=== PATIENT | male | born 1950 | race Caucasian/White ===

== ENCOUNTER 2018-09-30 17:47 | Inpatient (IN) ==
[2018-09-30 19:16] LABS: Basophils % 0.1 % (0.1-2.0); Hematocrit 37.5 % (42.0-52.0); Hemoglobin 12.1 g/dL (14.1-18.0); Lymphocytes # 1.3 K/mm3 (0.7-4.5); Mean Corpuscular HGB Conc 32.2 g/dL (31.8-35.4); Mean Corpuscular Hemoglobin 29.5 pg (27.0-31.2); Mean Corpuscular Volume 91.7 fl (80-94); Mean Platelet Volume 7.5 fl (7.4-10.4); Monocytes # 0.6 K/mm3 (0.1-1.0); Neutrophils # 14.2 K/mm3 (1.8-7.8); Neutrophils % 87.9 % (37.0-80.0); Platelet Count 221 K/mm3 (142-424); Red Blood Count 4.09 M/mm3 (4.60-6.20); Red Cell Distribution Width 15.3 % (11.5-17.5); White Blood Count 16.1 K/mm3 (4.8-10.8)
[2018-09-30 19:21] LABS: INR 1.11 (0.9-1.1); Prothrombin Time 11.4 seconds (9.4-11.8)
[2018-09-30 19:29] LABS: Anion Gap 12.4 mEq/L (5-15); Calcium 8.9 mg/dL (8.5-10.1); Chol/HDL Ratio 3.7 (1-3.5); Potassium 5.4 mmoL/L (3.5-5.1)
[2018-09-30 19:42] LABS: Lymphocytes % 10 % (10-50); Neutrophils % 81 % (42-76); Total Cells Counted 100
[2018-09-30 19:44] LABS: Polychromasia 1+
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
[2018-10-01 02:17] LABS: Basophils % 0.1 % (0.1-2.0); Eosinophils % 0.2 % (0.1-12.0); Hematocrit 34.4 % (42.0-52.0); Hemoglobin 11.4 g/dL (14.1-18.0); Lymphocytes # 1.9 K/mm3 (0.7-4.5); Lymphocytes % 12.3 % (10-50); Mean Corpuscular HGB Conc 33.3 g/dL (31.8-35.4); Mean Corpuscular Hemoglobin 29.9 pg (27.0-31.2); Mean Platelet Volume 8.1 fl (7.4-10.4); Monocytes # 0.8 K/mm3 (0.1-1.0); Neutrophils # 12.7 K/mm3 (1.8-7.8); Neutrophils % 82.5 % (37.0-80.0); Platelet Count 197 K/mm3 (142-424); Red Blood Count 3.82 M/mm3 (4.60-6.20); Red Cell Distribution Width 15.4 % (11.5-17.5); White Blood Count 15.4 K/mm3 (4.8-10.8)
[2018-10-01 02:28] LABS: Anion Gap 11.3 mEq/L (5-15); Calcium 8.5 mg/dL (8.5-10.1); Potassium 4.3 mmoL/L (3.5-5.1)
--- NOTE | 2018-10-01 08:13 | Pharmacy Consult Notes ---
[facility] Pharmacy VTE Monitoring - Patient Demographics Admission date: 09/30/18 Report Date: 10/01/18 Time: 08:13 Allergies/Adverse Reactions: Patient Allergies Iodinated Contrast Media - Oral and Allergy (Mild, Verified 08/17/18 13:27) iodine Allergy (Mild, Verified 08/17/18 13:27) Height: 1.7 m Weight: 95.963 kg Patient Problems: Current Active Problems Cardiomyopathy (Acute) Allergy to imaging contrast media (Acute) - VTE Risk Labs: VTE Related Lab Results Hgb 11.4 g/dL (14.1-18.0) L 10/01/18 02:10 Hct 34.4 % (42.0-52.0) L 10/01/18 02:10 Plt Count 197 K/mm3 (142-424) 10/01/18 02:10 PT 11.4 seconds (9.4-11.8) 09/30/18 19:01 INR 1.11 (0.9-1.1) H 09/30/18 19:01 APTT 52.9 seconds (23.6-34.0) H* D 10/01/18 02:10 BUN 26 mg/dL (7-18) H 10/01/18 02:10 Creatinine 0.94 mg/dL (0.70-1.30) 10/01/18 02:10 Estimated Creat Clear 95 mL/min (50-200) 10/01/18 02:10 VTE Score: 3 VTE Risk Level: Low Risk - Prophylaxis VTE Prophylaxis Ordered?: Yes Types of VTE Prophylaxis: TEDS Knee High, Pharmacological Location of Applied Device: Bilateral Lower Extremeties Pharmacologic Type: Heparin (HEPARIN DRIP) - VTE Diagnosis Confirmed Treatment or plan recommended: Continue Current Treatment
--- NOTE | 2018-10-01 08:20 | Pharmacy Consult Notes ---
[facility] Pharmacy Heparin Dosing - Demographic Data Admission date:: 09/30/18 Date: 10/01/18 Time: 08:17 Allergies/Adverse Reactions: Allergies Allergy/AdvReac Type Severity Reaction Status Date / Time Iodinated Contrast Media - Allergy Mild Verified 08/17/18 13:27 Oral and iodine Allergy Mild Verified 08/17/18 13:27 Height: 1.7 m Weight: 95.6 kg - Indication Medication therapy:: Heparin Current Indications:: NSTEMI Patient Problems: Current Active Problems Cardiomyopathy (Acute) Allergy to imaging contrast media (Acute) NSTEMI (non-ST elevated myocardial infarction) (Acute) CVA?: No Bleeding problem?: No Kidney disease?: No HI?: No Desired PTT range:: 60-80 seconds - Labs Anticoagulation Lab Results:: 09/30/18 10/01/18 19:01 02:10 Hgb 12.1 L 11.4 L Hct 37.5 L 34.4 L Plt Count 221 197 - Monitoring Dose Monitor 1 Date: 09/30/18 Time: 19:00 PTT Result:: 74.1 Infusion Rate:: 1000 UNITS/HR Comment:: NO BOLUS OF HEPARIN GIVEN Dose Monitor 2 Date: 10/01/18 Time: 02:10 PTT Result:: 52.9 Infusion Rate:: INCREASE TO 1250 UNITS/HR Dose Monitor 3 Date: 10/01/18 Time: 08:30 PTT Result:: 45.5 Infusion Rate:: INCREASE TO 1350 UNITS/HR Dose Monitor 4 Date: 10/01/18 Time: 14:30 PTT Result:: 46.7 Infusion Rate:: INCREASE TO 1450 UNITS/HR Dose Monitor 5 Date: 10/01/18 Time: 20:30 PTT Result:: 49.5 Infusion Rate:: CONTINUE 1450 UNITS/HR Dose Monitor 6 Date: 10/02/18 Time: 04:10 PTT Result:: 66.7 Infusion Rate:: CONTINUE 1,450 UNITS/HR Dose Monitor 7 Date: 10/02/18 Time: 10:30 - Core Measures Is INR > or = 2 at discharge?: No Most Recent Labs:: Laboratory Results - last 24 hr 09/30/18 19:01: WBC 16.1 H, RBC 4.09 L, Hgb 12.1 L, Hct 37.5 L, MCV 91.7, MCH 29.5, MCHC 32.2, RDW 15.3, Plt Count 221, MPV 7.5, Neut % (Auto) 87.9 H, Lymph % (Auto) 8.0 L, [place] % (Auto) 4.0, Eos % (Auto) 0.0 L, Baso % (Auto) 0.1, Neut # (Auto) 14.2 H, Lymph # (Auto) 1.3, [place] # (Auto) 0.6, Eos # (Auto) 0.0, Baso # (Auto) 0.0, Total Counted 100, Neutrophils % (Manual) 81 H, Band Neutrophils % 9.0 H, Lymphocytes % (Manual) 10, Platelet Estimate Normal, Polychromasia 1+, Ovalocytes 09/30/18 19:01: Sodium 139, Potassium 5.4 H, Chloride 100, Carbon Dioxide 32, Anion Gap 12.4, BUN 28 H, Creatinine 1.12, Estimated Creat Clear 85, Estimated GFR 65, Est GFR ( Amer) 79, Glucose 238 H, Calcium 8.9, Magnesium 2.1, Troponin I 0.06, Triglycerides 70, Cholesterol 176, LDL Cholesterol 114, VLDL Cholesterol 14, HDL Cholesterol 48, Cholesterol/HDL Ratio 3.7 H 09/30/18 19:01: B-Natriuretic Peptide 46 09/30/18 19:01: PT 11.4, INR 1.11 H 09/30/18 19:01: APTT 74.1 H* 10/01/18 02:10: WBC 15.4 H, RBC 3.82 L, Hgb 11.4 L, Hct 34.4 L, MCV 90.0, MCH 29.9, MCHC 33.3, RDW 15.4, Plt Count 197, MPV 8.1, Neut % (Auto) 82.5 H, Lymph % (Auto) 12.3, [place] % (Auto) 5.0, Eos % (Auto) 0.2, Baso % (Auto) 0.1, Neut # (Auto) 12.7 H, Lymph # (Auto) 1.9, [place] # (Auto) 0.8, Eos # (Auto) 0.0, Baso # (Auto) 0.0 10/01/18 02:10: Sodium 138, Potassium 4.3 D, Chloride 101, Carbon Dioxide 30, Anion Gap 11.3, BUN 26 H, Creatinine 0.94, Estimated Creat Clear 95, Estimated GFR 80, Est GFR ( Amer) 96 D, Glucose 186 H D, Calcium 8.5 10/01/18 02:10: APTT 52.9 H* D Were Heparin and Warfarin started on the same day?: No If not, why?: HEPARIN DRIP STOPPED PER DR. GRIFFIN. PATIENT IS ON XARELTO AT HOME
--- NOTE | 2018-10-01 11:16 | Progress Note ---
Internal Medicine - PN: Subj *Date: 10/01/18 *Time: 10:40 Interval history: Patient is doing slightly better compared to yesterday. He still complains of central chest pain radiating to the lower side of his left jaw and mild pain also radiating to his left arm. Exam Vital signs and Labs for Last 24 Hours: Temp Pulse Resp BP Pulse Ox 97.6 F 70 15 144/82 H 92 L 10/01/18 08:00 10/01/18 08:00 10/01/18 08:00 10/01/18 08:00 10/01/18 08:00 Laboratory Results - last 24 hr 09/30/18 19:01: WBC 16.1 H, RBC 4.09 L, Hgb 12.1 L, Hct 37.5 L, MCV 91.7, MCH 29.5, MCHC 32.2, RDW 15.3, Plt Count 221, MPV 7.5, Neut % (Auto) 87.9 H, Lymph % (Auto) 8.0 L, [place] % (Auto) 4.0, Eos % (Auto) 0.0 L, Baso % (Auto) 0.1, Neut # (Auto) 14.2 H, Lymph # (Auto) 1.3, [place] # (Auto) 0.6, Eos # (Auto) 0.0, Baso # (Auto) 0.0, Total Counted 100, Neutrophils % (Manual) 81 H, Band Neutrophils % 9.0 H, Lymphocytes % (Manual) 10, Platelet Estimate Normal, Polychromasia 1+, Ovalocytes 09/30/18 19:01: Sodium 139, Potassium 5.4 H, Chloride 100, Carbon Dioxide 32, Anion Gap 12.4, BUN 28 H, Creatinine 1.12, Estimated Creat Clear 85, Estimated GFR 65, Est GFR ( Amer) 79, Glucose 238 H, Calcium 8.9, Magnesium 2.1, Troponin I 0.06, Triglycerides 70, Cholesterol 176, LDL Cholesterol 114, VLDL Cholesterol 14, HDL Cholesterol 48, Cholesterol/HDL Ratio 3.7 H 09/30/18 19:01: B-Natriuretic Peptide 46 09/30/18 19:01: PT 11.4, INR 1.11 H 09/30/18 19:01: APTT 74.1 H* 10/01/18 02:10: WBC 15.4 H, RBC 3.82 L, Hgb 11.4 L, Hct 34.4 L, MCV 90.0, MCH 29.9, MCHC 33.3, RDW 15.4, Plt Count 197, MPV 8.1, Neut % (Auto) 82.5 H, Lymph % (Auto) 12.3, [place] % (Auto) 5.0, Eos % (Auto) 0.2, Baso % (Auto) 0.1, Neut # (Auto) 12.7 H, Lymph # (Auto) 1.9, [place] # (Auto) 0.8, Eos # (Auto) 0.0, Baso # (Auto) 0.0 10/01/18 02:10: Sodium 138, Potassium 4.3 D, Chloride 101, Carbon Dioxide 30, Anion Gap 11.3, BUN 26 H, Creatinine 0.94, Estimated Creat Clear 95, Estimated GFR 80, Est GFR ( Amer) 96 D, Glucose 186 H D, Calcium 8.5 10/01/18 02:10: APTT 52.9 H* D 10/01/18 08:25: APTT 45.5 H D I & O for Last 24 hours: Intake & Output 09/28/18 09/29/18 09/30/18 10/01/18 11:59 11:59 11:59 11:59 Intake Total 1369 / 1369 Output Total 1900 / 1900 Balance -531 / -531 Weight 210 lb 12.191 oz - *Routine HEENT Exam Head: Present: normocephalic Eye: Present: EOMI ENT: Present: mucous membranes moist - *Routine Neck Exam Present: supple - *Routine Respiratory Exam Present: CTA bilaterally. Absent: accessory muscle use - *Routine Cardiovascular Exam Present: RRR - *Routine Abdominal Exam Present: soft, normoactive bowel sounds - *Routine Extremities Exam Absent: edema - *Routine Skin Exam Present: intact - *Routine Neurological Exam Present: alert, oriented X3 - Routine Psychiatric Exam Present: normal affect Assessment and Plan (1) NSTEMI (non-ST elevated myocardial infarction) Current visit: Yes Status: Acute Category: Medical Code(s): I21.4 - Non-ST elevation (NSTEMI) myocardial infarction (2) Unstable angina Current visit: No Status: Acute Category: Medical Code(s): I20.0 - Unstable angina (3) Allergy to imaging contrast media Current visit: Yes Status: Acute Category: Medical Code(s): Z91.041 - Radiographic dye allergy status (4) Angina pectoris Current visit: No Status: Chronic Category: Medical Code(s): I20.9 - Angina pectoris, unspecified (5) Cardiomyopathy Current visit: Yes Status: Acute Category: Medical Code(s): I42.9 - Cardiomyopathy, unspecified (6) Anaphylaxis Current visit: No Status: Acute Category: Medical Code(s): T78.2XXA - Anaphylactic shock, unspecified, initial encounter (7) Benign essential hypertension Current visit: No Status: Chronic Category: Medical Code(s): I10 - Ess ential (primary) hypertension (8) Cardiac pacemaker in situ Current visit: No Status: Chronic Category: Medical Code(s): Z95.0 - Presence of cardiac pacemaker (9) Chest pain Current visit: No Status: Chronic Category: Medical Code(s): R07.9 - Chest pain, unspecified (10) Coronary arteriosclerosis Current visit: No Status: Chronic Category: Medical Code(s): I25.10 - Atherosclerotic heart disease of [place] coronary artery without angina pectoris (11) History of coronary artery bypass graft Current visit: No Status: Chronic Category: Surgical Code(s): Z95.1 - Presence of aortocoronary bypass graft (12) Hyperlipemia Current visit: No Status: Chronic Qualifiers: Hyperlipidemia type: other hyperlipidemia Category: Medical Code(s): E78.5 - Hyperlipidemia, unspecified - Assessment and plan all Dx Assessment and Plan for all problems:: We will continue IV heparin drip per pharmacy protocol. Optimize his medical management for NYHA class III HFrEF. Spoke to Dr. Dale, he needs to be pretreated for his allergy contrast prior to possible cath. Dr. Dale to initiate the pretreatment with steroids, as the treatment is time-sensitive. Will follow cardiology recommendation.
[2018-10-02 04:26] LABS: Basophils % 0.2 % (0.1-2.0); Eosinophils # 0.1 K/mm3 (0.0-0.4); Eosinophils % 1.3 % (0.1-12.0); Hematocrit 38.9 % (42.0-52.0); Hemoglobin 12.1 g/dL (14.1-18.0); Lymphocytes # 2.5 K/mm3 (0.7-4.5); Lymphocytes % 22.9 % (10-50); Mean Corpuscular Hemoglobin 28.3 pg (27.0-31.2); Mean Corpuscular Volume 91.3 fl (80-94); Mean Platelet Volume 7.5 fl (7.4-10.4); Monocytes # 0.8 K/mm3 (0.1-1.0); Monocytes % 7.1 % (1.7-9.3); Neutrophils # 7.4 K/mm3 (1.8-7.8); Neutrophils % 68.6 % (37.0-80.0); Platelet Count 192 K/mm3 (142-424); Red Blood Count 4.26 M/mm3 (4.60-6.20); Red Cell Distribution Width 15.4 % (11.5-17.5); White Blood Count 10.8 K/mm3 (4.8-10.8)
[2018-10-02 04:38] LABS: Anion Gap 7.8 mEq/L (5-15); Calcium 8.5 mg/dL (8.5-10.1); Potassium 3.8 mmoL/L (3.5-5.1)
--- NOTE | 2018-10-02 09:39 | Progress Note ---
<Annabel Cartwright - Last Filed: 10/02/18 09:35> Internal Medicine - PN: Subj *Date: 10/02/18 *Time: 09:36 Interval history: Patient states he continues to feel horrible. He continues to have chest discomfort. He states the nitroglycerin works very briefly. Morphine helps for a while. He denies shortness of breath. He has been n.p.o. after midnight for possible cath today. He ate satisfactory yesterday. Bowels are moving. He remains on bedrest. Dr. Dale is to speak with patient. Exam Vital signs and Labs for Last 24 Hours: Temp Pulse Resp BP Pulse Ox 98.1 F 70 20 146/98 H 96 10/02/18 07:57 10/02/18 07:57 10/02/18 07:57 10/02/18 07:57 10/02/18 07:57 Laboratory Results - last 24 hr 10/01/18 14:30: APTT 46.7 H 10/01/18 20:35: APTT 49.5 H 10/02/18 01:15: Total Creatine Kinase 33 L, CK-MB (CK-2) 2.3, CK-MB (CK-2) Rel Index 7.0 H, Troponin I 0.06 10/02/18 04:10: WBC 10.8 D, RBC 4.26 L, Hgb 12.1 L, Hct 38.9 L, MCV 91.3, MCH 28.3, MCHC 31.0 L, RDW 15.4, Plt Count 192, MPV 7.5, Neut % (Auto) 68.6, Lymph % (Auto) 22.9, [place] % (Auto) 7.1, Eos % (Auto) 1.3, Baso % (Auto) 0.2, Neut # (Auto) 7.4, Lymph # (Auto) 2.5, [place] # (Auto) 0.8, Eos # (Auto) 0.1, Baso # (Auto) 0.0 10/02/18 04:10: Sodium 143, Potassium 3.8, Chloride 106, Carbon Dioxide 33 H, Anion Gap 7.8, BUN 19 H D, Creatinine 0.93, Estimated Creat Clear 94, Estimated GFR 81, Est GFR ( Amer) 97, Glucose 131 H, Calcium 8.5 10/02/18 04:10: APTT 66.7 H* D I & O for Last 24 hours: Intake & Output 09/29/18 09/30/18 10/01/18 10/02/18 11:59 11:59 11:59 11:59 Intake Total 1369 / 1369 1200 / 1200 Output Total 1900 / 1900 1850 / 1850 Balance -531 / -531 -650 / -650 Weight 211 lb 9 oz 210 lb 12.191 oz Radiology Reports for the Last 24 Hours: 10/02/2018 chest x-ray IMPRESSION: Prior CABG with pacemaker and mild cardiomegaly - Constitutional no acute distress Comments: Family is at bedside - *Routine Respiratory Exam Present: CTA bilaterally (Anteriorly and posteriorly) - *Routine Cardiovascular Exam Present: RRR - *Routine Abdominal Exam Present: soft, normoactive bowel sounds. Absent: tenderness - *Routine Extremities Exam Present: pulses intact, calf tenderness. Absent: edema - *Routine Neurological Exam Present: alert, oriented X3 Assessment and Plan (1) NSTEMI (non-ST elevated myocardial infarction) Current visit: Yes Status: Acute Category: Medical Code(s): I21.4 - Non-ST elevation (NSTEMI) myocardial infarction (2) Unstable angina Current visit: No Status: Acute Category: Medical Code(s): I20.0 - Unstable angina (3) Allergy to imaging contrast media Current visit: Yes Status: Acute Category: Medical Code(s): Z91.041 - Radiographic dye allergy status (4) Angina pectoris Current visit: No Status: Chronic Category: Medical Code(s): I20.9 - Angina pectoris, unspecified (5) Cardiomyopathy Current visit: Yes Status: Acute Category: Medical Code(s): I42.9 - Cardiomyopathy, unspecified (6) Anaphylaxis Current visit: No Status: Acute Category: Medical Code(s): T78.2XXA - Anaphylactic shock, unspecified, initial encounter (7) Benign essential hypertension Current visit: No Status: Chronic Category: Medical Code(s): I10 - Essential (primary) hypertension (8) Cardiac pacemaker in situ Current visit: No Status: Chronic Category: Medical Code(s): Z95.0 - Presence of cardiac pacemaker (9) Chest pain Current visit: No Status: Chronic Category: Medical Code(s): R07.9 - Chest pain, unspecified (10) Coronary arteriosclerosis Current visit: No Status: Chronic Category: Medical Code(s): I25.10 - Atherosclerotic heart disease of [place] coronary artery without angina pectoris (11) History of coronary artery bypass graft Current visit: No Status: Chronic Category: Surgical Code(s): Z95.1 - Presence of aortocoronary bypass graft (12) Hyperlipemia Current visit: No Status: Chronic Qualifiers: Hyperlipidemia type: other hyperlipidemia Category: Medical Code(s): E78.5 - Hyperlipidemia, unspecified - Assessment and plan all Dx Assessment and Plan for all problems:: Will follow cardiology direction <Joceline Ruiz - Last Filed: 10/02/18 10:07> Exam Vital signs and Labs for Last 24 Hours: Temp Pulse Resp BP Pulse Ox 98.1 F 70 20 146/98 H 96 10/02/18 07:57 10/02/18 07:57 10/02/18 07:57 10/02/18 07:57 10/02/18 07:57 Laboratory Results - last 24 hr 10/01/18 14:30: APTT 46.7 H 10/01/18 20:35: APTT 49.5 H 10/02/18 01:15: Total Creatine Kinase 33 L, CK-MB (CK-2) 2.3, CK-MB (CK-2) Rel Index 7.0 H, Troponin I 0.06 10/02/18 04:10: WBC 10.8 D, RBC 4.26 L, Hgb 12.1 L, Hct 38.9 L, MCV 91.3, MCH 28.3, MCHC 31.0 L, RDW 15.4, Plt Count 192, MPV 7.5, Neut % (Auto) 68.6, Lymph % (Auto) 22.9, [place] % (Auto) 7.1, Eos % (Auto) 1.3, Baso % (Auto) 0.2, Neut # (Auto) 7.4, Lymph # (Auto) 2.5, [place] # (Auto) 0.8, Eos # (Auto) 0.1, Baso # (Auto) 0.0 10/02/18 04:10: Sodium 143, Potassium 3.8, Chloride 106, Carbon Dioxide 33 H, Anion Gap 7.8, BUN 19 H D, Creatinine 0.93, Estimated Creat Clear 94, Estimated GFR 81, Est GFR ( Amer) 97, Glucose 131 H, Calcium 8.5 10/02/18 04:10: APTT 66.7 H* D I & O for Last 24 hours: Intake & Output 09/29/18 09/30/18 10/01/18 10/02/18 11:59 11:59 11:59 11:59 Intake Total 1369 / 1369 1200 / 1200 Output Total 1900 / 1900 1850 / 1850 Balance -531 / -531 -650 / -650 Weight 211 lb 9 oz 210 lb 12.191 oz Assessment and Plan (1) NSTEMI (non-ST elevated myocardial infarction) Current visit: Yes Status: Acute Category: Medical Code(s): I21.4 - Non-ST elevation (NSTEMI) myocardial infarction (2) Unstable angina Current visit: No Status: Acute Category: Medical Code(s): I20.0 - Unstable angina (3) Allergy to imaging contrast media Current visit: Yes Status: Acute Category: Medical Code(s): Z91.041 - Radiographic dye allergy status (4) Angina pectoris Current visit: No Status: Chronic Category: Medical Code(s): I20.9 - Angina pectoris, unspecified (5) Cardiomyopathy Current visit: Yes Status: Acute Category: Medical Code(s): I42.9 - Cardiomyopathy, unspecified (6) Anaphylaxis Current visit: No Status: Acute Category: Medical Code(s): T78.2XXA - Anaphylactic shock, unspecified, initial encounter (7) Benign essential hypertension Current visit: No Status: Chronic Category: Medical Code(s): I10 - Essential (primary) hypertension (8) Cardiac pacemaker in situ Current visit: No Status: Chronic Category: Medical Code(s): Z95.0 - Presence of cardiac pacemaker (9) Chest pain Current visit: No Status: Chronic Category: Medical Code(s): R07.9 - Chest pain, unspecified (10) Coronary arteriosclerosis Current visit: No Status: Chronic Category: Medical Code(s): I25.10 - Atherosclerotic heart disease of [place] coronary artery without angina pectoris (11) History of coronary artery bypass graft Current visit: No Status: Chronic Category: Surgical Code(s): Z95.1 - Presence of aortocoronary bypass graft (12) Hyperlipemia Current visit: No Status: Chronic Qualifiers: Qualified Code(s): E78.49 - Other hyperlipidemia; E78.4 - Other hyperlipidemia Category: Medical Code(s): E78.5 - Hyperlipidemia, unspecified - Assessment and plan all Dx Assessment and Plan for all problems:: Agree with above and DC home per cardiology recommendation with optimal medical management.
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
--- NOTE | 2018-10-02 19:58 | Cardiology Report ---
PROCEDURE: 2-D M-mode and color Doppler study INDICATIONS FOR THE TEST: Chest pain X COPD Heart Murmur Tobacco Smoking Palpitations Fatigue Syncope Edema HypertensionXDiabetes Mellitus Rheumatic Fever SOB BRAR Obesity HyperlipidemiaX Family History HD Additional History CM,STEMI,PPM,CABG,AF,CHF,EF 40 PATIENT INFORMATION HEIGHT: 66 WEIGHT:210 GENDER: Male B/P:144/82 2-D/M-MODE INTERPRETATION: 2-D MEASUREMENTS OBSERVED VALUES IN CMS Right Ventricular Dimension (RVDd) 3.4 Interventricular Septum (Thickness)(IVsd) 1.2 Left Ventricular Internal Dimensions(LVIDd) 5.8 Left Ventricular Posterior Wall (Thickness)(LVPWd) 1.6 Aortic Root 5.1 Aortic Cusp Separation 1.6 Left Atrial Dimensions (LAD) 3.7 2D 1. Left atrium is mildly enlarged, left ventricle is mildly enlarged, there is mild concentric left ventricular hypertrophy, visually estimated ejection fraction of 45%, there is marked hypokinesis involving the basal septum, inferobasal and inferior wall. 2. The right atrium and right ventricle are mildly enlarged with normal contractility, there is a pacemaker lead seen in the right atrium and right ventricle. 3. The aortic valve is thickened and calcified difficult to display mobility. 4. The mitral and tricuspid valve leaflets are minimally thickened. 5. The pulmonic valve is poorly visualized. 6. No significant pericardial effusion noted. DOPPLER INTERROGATION: Doppler interrogation of the aortic, mitral and tricuspid valvular presence of mild aortic, mild mitral and tricuspid regurgitation, tricuspid regurgitation jet velocity is inadequate for calculation of the right ventricular systolic pressure, grade 1 diastolic dysfunction seen without tissue Doppler evidence of raised left atrial pressure. CONCLUSION: 1. Mildly enlarged left atrium, mildly dilated left ventricle, mild concentric left ventricular hypertrophy, visually estimated ejection fraction of 45% with segmental wall motion abnormality described above, grade 1 diastolic dysfunction seen without tissue Doppler evidence of raised left atrial pressure. 2. Mildly enlarged right ventricle with normal contractility. 3. Mild aortic, mild mitral and tricuspid regurgitation. 4. No significant pericardial effusion noted.
== END 2018-10-02 10:55 | disposition home or self-care (01) | DRG 281 ==
LOC: 2ND 17:47
PROVIDERS: ADMIT Family Medicine; ATTEND Emergency Medicine

== ENCOUNTER → 2019-02-19 12:12 | Outpatient (CLI) | payer MEDICARE, SELFPAY ==
--- NOTE | 2019-02-19 12:30 | XR_ITS ---
XR chest 2V HISTORY: ITS.REASON: dyspnea ORDERING PHYSICIAN: Artie Dale MD PATIENT AGE: 68 years COMPARISON: 10/02/2018 FINDINGS: Prior CABG. There is fracture the superior most median sternotomy wire. Borderline cardiomegaly. No failure. Bipolar pacemaker is present. Lungs are clear. Degenerative change thoracic spine. IMPRESSION: No change prior CABG with chronic changes. , No acute finding
[2019-02-19 15:53] LABS: Anion Gap 15.8 mEq/L (5-15); Blood Urea Nitrogen 23 mg/dL (7-18); Calcium 9.4 mg/dL (8.5-10.1); Carbon Dioxide 26 mmol/L (21.0-32.0); Chloride 106 mmol/L (98-107); Creatinine,Serum 1.28 mg/dL (0.70-1.30); Estimated Glomerular Filt Rate 56 ml/min (>60); GFR (African American) 67 ML/MIN (>60); Glucose 128 mg/dL (74-106); Potassium 3.8 mmoL/L (3.5-5.1); Sodium 144 mmol/L (136-145)
== END ==
PROVIDERS: Visit Provider Internal Medicine
DX: I25.118 Atherosclerotic heart disease of native coronary artery with other forms of angina pectoris (principal); I11.9 Hypertensive heart disease without heart failure; I50.22 Chronic systolic (congestive) heart failure; I50.23 Acute on chronic systolic (congestive) heart failure; I50.30 Unspecified diastolic (congestive) heart failure; Z95.1 Presence of aortocoronary bypass graft; E78.5 Hyperlipidemia, unspecified; I48.91 Unspecified atrial fibrillation
CPT/HCPCS: 36415; 71046; 80048; 83880

== ENCOUNTER → 2019-08-29 12:11 | Outpatient (CLI) | payer MEDICARE, SELFPAY ==
--- NOTE | 2019-08-29 12:13 | US_ITS ---
PROCEDURE: US THYROID CLINICAL INDICATION: mass seen on Thryoid previous Thyroid mass noted on recent CT scan. That exam nor report is available comparison. COMPARISON: Chest from 04/24/2019 FINDINGS: Right lobe: 4.6 x 1.7 x 2.2 cm. There is a well-circumscribed wider than tall solid-appearing hypoechoic nodule in the lower pole which measures 1 x 0.7 cm with no obvious calcifications. In addition, there is an 8 x 4 mm hypoechoic nodule along the lower pole. This nodule is well-circumscribed wider than tall without obvious calcifications. Left lobe: 4.3 x 2.2 x 2.2 cm. There is a 4 mm hypoechoic nodule in the upper pole Isthmus: Unremarkable Additional findings: IMPRESSION: Enlarged thyroid gland with bilateral thyroid nodules. On the right the nodules are TR 4 moderately suspicious. Recommend six-month follow-up to confirm short term stability. The nodule on the left may be a cyst and can be followed as well Dictated by: Mike Mora MD 08/30/2019 09:18 Electronically signed by Mike Mora MD in [place] 08/30/2019 09:18
== END ==
PROVIDERS: PCP Family Medicine; Visit Provider Internal Medicine
DX: E11.9 Type 2 diabetes mellitus without complications (principal); E78.2 Mixed hyperlipidemia; I11.0 Hypertensive heart disease with heart failure; I48.0 Paroxysmal atrial fibrillation; I50.32 Chronic diastolic (congestive) heart failure; R53.83 Other fatigue; R60.0 Localized edema
CPT/HCPCS: 76536

== ENCOUNTER → 2019-10-04 15:43 | Outpatient (CLI) | payer MEDICARE, SELFPAY ==
[2019-10-04 17:14] LABS: Free T4 (Free Thyroxine) 1.07 ng/dl (0.76-1.46); Thyroid Stimulating Hormone 1.06 uIU/ml (0.358-3.740)
[2019-10-06 11:04] LABS: Thyroid Peroxidase Antibodies 11 IU/mL (0-34)
[2019-10-07 10:53] LABS: Calcitonin 2.7 pg/mL (0.0-8.4)
[2019-10-10 17:34] LABS: Thyroid Stimulating Immunoglob <0.10 IU/L (0.00-0.55)
== END ==
PROVIDERS: Visit Provider Otolaryngology
DX: E04.9 Nontoxic goiter, unspecified (principal)
CPT/HCPCS: 36415; 82308; 84439; 84443; 84445; 86376

== ENCOUNTER 2020-03-21 20:48 | Emergency (ER) | payer MEDICARE, SELFPAY ==
[2020-03-21] VITALS (7 sets, daily range): BP systolic 100–136; BP diastolic 52–79; PULSE 70–78; RESP 15–16; TEMP 36.5; O2SAT 91–98; BMI 34.9
--- NOTE | 2020-03-21 20:48 | ECG_ITS ---
APPROVED REPORT Exam: Resting ECG HR:70 bpm ECG Measurements Heart Rate 70 AXES NE 184 P 14 QRSd 92 QRS 12 QT 450 T 260 QTc 486 <Conclusion> Electronic atrial pacemaker ST & T wave abnormality, consider anterior ischemia Prolonged QT Abnormal ECG Electronically signed by : Shay Oro, 03/24/2020 17:13:42
--- NOTE | 2020-03-21 21:02 | XR_ITS ---
PROCEDURE: XR CHEST PORTABLE CLINICAL HISTORY: CHEST PAIN COMPARISON: CXR1VP XR chest portable from 10/02/2018 Chest from 04/24/2019 FINDINGS: There are low lung volumes. There is cardiomegaly. There has been a prior median sternotomy. Bipolar pacer is present. There is fracture of the superior most median sternotomy wire. The lungs are clear without infiltrates, suspicious nodules, or pleural effusions. No acute bony abnormalities. IMPRESSION: Cardiomegaly. No acute finding Dictated by: Mike Mora MD 03/22/2020 06:44 Electronically signed by Mike Mora MD in [place] 03/22/2020 06:44
--- NOTE | 2020-03-21 21:06 | HMH.EDCP ---
ED Disposition Clinical Impression: Angina at rest Disposition: Home, Self-Care Condition on Discharge: Good Instructions: DI for Chest Pain Additional Instructions: see card tuesday Referrals: Chicho Claros [Primary Care Provider] - - Critical Care Critical Care Time: No Attestation: On 03/21/20, the high probability of a clinically significant, sudden or life threatening deterioration of the following system(s) required my full and direct attention, intervention and personal management. The time I documented below is in addition to time spent performing reported procedures but includes the following listed in this critical care notation. Medical Decision Making - Medical Records Medical records reviewed: Yes: I reviewed the patient's medical records. - Gabe Inquiry Pt receiving controlled substance: No Vital Signs: 03/21/20 20:49 03/21/20 21:00 03/21/20 21:30 Temperature 97.7 F Temperature Source Oral Pulse Rate [Right Brachial] 70 70 71 Respiratory Rate 16 15 Blood Pressure [Right Arm] 136/79 116/62 120/77 Blood Pressure Mean [Right Arm] 98 80 91 Blood Pressure Source [Right Arm] Automatic Cuff Automatic Cuff Automatic Cuff Blood Pressure Position [Right Arm] Sitting Supine Supine 02 Sat by Pulse Oximetry 96 95 Oxygen Delivery Method Room Air Room Air Oxygen Flow Rate (LPM) 03/21/20 22:00 03/21/20 22:30 03/21/20 22:58 Temperature Temperature Source Pulse Rate [Right Brachial] 70 78 70 Respiratory Rate Blood Pressure [Right Arm] 116/74 111/52 L 100/65 L Blood Pressure Mean [Right Arm] 88 71 76 Blood Pressure Source [Right Arm] Automatic Cuff Automatic Cuff Automatic Cuff Blood Pressure Position [Right Arm] Supine Supine Supine 02 Sat by Pulse Oximetry 91 L 98 97 Oxygen Delivery Method Nasal Cannula Nasal Cannula Nasal Cannula Oxygen Flow Rate (LPM) 2 2 2 03/21/20 23:30 03/22/20 00:00 03/22/20 00:29 Temperature Temperature Source Pulse Rate [Right Brachial] 70 70 70 Respiratory Rate Blood Pressure [Right Arm] 113/75 128/79 112/70 Blood Pressure Mean [Right Arm] 87 95 84 Blood Pressure Source [Right Arm] Automatic Cuff Automatic Cuff Automatic Cuff Blood Pressure Position [Right Arm] Supine Supine Supine 02 Sat by Pulse Oximetry 95 96 95 Oxygen Delivery Method Nasal Cannula Nasal Cannula Nasal Cannula Oxygen Flow Rate (LPM) 2 2 2 03/22/20 01:16 Temperature Temperature Source Pulse Rate [Right Brachial] 70 Respiratory Rate 16 Blood Pressure [Right Arm] 125/82 Blood Pressure Mean [Right Arm] 96 Blood Pressure Source [Right Arm] Blood Pressure Position [Right Arm] 02 Sat by Pulse Oximetry 92 L Oxygen Delivery Method Room Air Oxygen Flow Rate (LPM) - Lab Data Lab results reviewed: Yes: I reviewed the patient's lab results. Lab Results 03/21/20 20:24: Sodium 138, Potassium 3.0 L, Chloride 97 L, Carbon Dioxide 33 H, Anion Gap 11.0, BUN 13, Creatinine 0.80, Estimated Creat Clear 101, Estimated GFR 96, Est GFR ( Amer) 116, Glucose 174 H, Calcium 9.0, Troponin I 0.02 03/21/20 20:54: NT-Pro-B Natriuret Pep 200 H 03/21/20 21:20: WBC 9.6, RBC 3.99 L, Hgb 11.6 L, Hct 34.0 L, MCV 85.4, MCH 29.2, MCHC 34.2, RDW 14.5, Plt Count 218, MPV 8.3, Neut % (Auto) 74.5, Lymph % (Auto) 16.7, [place] % (Auto) 5.4, Eos % (Auto) 2.8, Baso % (Auto) 0.6, Neut # (Auto) 7.1, Lymph # (Auto) 1.6, [place] # (Auto) 0.5, Eos # (Auto) 0.3, Baso # (Auto) 0.1 03/22/20 00:20: Troponin I 0.02 Result diagrams: 03/21/20 21:20 03/21/20 20:24 Orders (Tests/Meds): ED MEDICATIONS Generic Name Dose Route Start Last Admin Trade Name Freq PRN Reason Stop Dose Admin Nitroglycerin/Dextrose 250 mls @ 1.5 mls/hr 03/21/20 21:45 03/21/20 22:03 Nitroglycerin 50mg/250ml D5w IV 04/20/20 21:44 20 mcg/min .Q24H CARLEEN 6 mls/hr Titration Protocol 5 MCG/MIN Nitroglycerin 0.4 mg 03/21/20 21:01 03/21/20 21:03 Nitrostat 0.4mg Sl Tablet SL 04/20/20 21:00 1 tab Q5
[2020-03-21 21:17] LABS: Chloride 97 mmol/L (98-107); Sodium 138 mmol/L (136-145)
[2020-03-21 21:20] LABS: Blood Urea Nitrogen 13 mg/dl (9-20); Carbon Dioxide 33 mmol/L (22.0-30.0); Creatinine Clearance Estimated 101 mL/min (50-200); Estimated Glomerular Filt Rate 96 ml/min (>60); GFR (African American) 116 ML/MIN (>60); Glucose 174 mg/dl (74-100)
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
[2020-03-21 21:27] LABS: Basophils # 0.1 K/mm3 (0-0.2); Basophils % 0.6 % (0.1-2.0); Eosinophils # 0.3 K/mm3 (0.0-0.4); Eosinophils % 2.8 % (0.1-12.0); Hemoglobin 11.6 g/dL (14.1-18.0); Lymphocytes # 1.6 K/mm3 (0.7-4.5); Lymphocytes % 16.7 % (10-50); Mean Corpuscular HGB Conc 34.2 g/dL (31.8-35.4); Mean Corpuscular Hemoglobin 29.2 pg (27.0-31.2); Mean Corpuscular Volume 85.4 fl (80-94); Mean Platelet Volume 8.3 fl (7.4-10.4); Monocytes # 0.5 K/mm3 (0.1-1.0); Monocytes % 5.4 % (1.7-9.3); Neutrophils # 7.1 K/mm3 (1.8-7.8); Neutrophils % 74.5 % (37.0-80.0); Platelet Count 218 K/mm3 (142-424); Red Blood Count 3.99 M/mm3 (4.60-6.20); Red Cell Distribution Width 14.5 % (11.5-17.5); White Blood Count 9.6 K/mm3 (4.8-10.8)
[2020-03-21 21:28] LABS: NT Pro Brain Natriuretic Pep. 200 pg/mL (0-125)
[2020-03-21 21:31] LABS: Troponin I 0.02 ng/ml (0.00-0.034)
--- NOTE | 2020-03-21 21:35 | PC.NURSE ---
OFFERED ZOFRAN FOR NAUSEA, PATIENT REQUESTS TO HOLD
--- NOTE | 2020-03-21 22:00 | PC.NURSE ---
INCR NITRO TO 6 ML/HR; O2 APPLIED VIA NC FOR PERSISTENT LOW SATURATION DUE TO FALLING ASLEEP
[2020-03-22] VITALS: BP 128/79; PULSE 70; O2SAT 96
[2020-03-22 00:29] VITALS: BP 112/70; PULSE 70; O2SAT 95
[2020-03-22 00:51] LABS: Troponin I 0.02 ng/ml (0.00-0.034)
[2020-03-22 01:16] VITALS: BP 125/82; PULSE 70; RESP 16; O2SAT 92
[2020-03-22 01:27] VITALS: BP 125/82; PULSE 70; RESP 16; TEMP 36.5; O2SAT 95
== END 2020-03-22 01:35 | disposition home or self-care (01) ==
PROVIDERS: Emergency Provider Emergency Medicine; PCP Family Medicine
DX: I20.8 Other forms of angina pectoris (principal); I48.91 Unspecified atrial fibrillation; I50.9 Heart failure, unspecified; I25.10 Atherosclerotic heart disease of native coronary artery without angina pectoris; I10 Essential (primary) hypertension; E78.5 Hyperlipidemia, unspecified; E03.9 Hypothyroidism, unspecified; Z95.0 Presence of cardiac pacemaker; Z90.09 Acquired absence of other part of head and neck; Z87.891 Personal history of nicotine dependence
CPT/HCPCS: 71045; 80048; 83880; 84484; 85025; 93005; 96365; 96375; 96376; 99284

== ENCOUNTER → 2020-03-24 12:01 | Outpatient (CLI) | payer MEDICARE, SELFPAY ==
--- NOTE | 2020-03-24 12:05 | CA_ITS ---
APPROVED REPORT EXAM: Comprehensive 2D, Doppler, and color-flow Echocardiogram Bow Maker Production: Montse Haque RVT Ht: 5 ft 7 in Wt: 228lbs BSA: 2.14 BP: 120/77 mmHg Indications: SOA,CP,A-FIB,CABG,CAD,CM,CHF,PACER,DM,HTN,HLD,FATIGUE,EX SMOKER 2D Dimensions LVOT 2.65 cm (M/F) 1.5-2.5 M-Mode Dimensions RVDd 2.19 cm (0.9-2.6) LVDd 4.60 cm (3.5-5.7) LVDs 3.66 cm (3.5-5.7) IVSd 2.05 cm (0.6-1.1) PWd 2.50 cm (0.6-1.1) EF (Teich) 41.80% FS 20.40% EDV (Teich) 97.30 mL ESV (Teich) 56.60 mL LV Diastology E/A Ratio 0.91 Mitral Valve MV A Velocity 73.00 (40-130 cm/s) Left Ventricle Left atrium is mildly enlarged, left ventricle is normal size, mild concentric left ventricular hypertrophy, visually estimated ejection fraction 55% with no regional wall motion abnormality, grade 1 diastolic dysfunction seen with tissue Doppler evidence of raise left atrial pressure. Right Ventricle Right atrium and right ventricle are normal size and contractility. Aortic Valve Aortic valve is thickened and calcified leaflet continue to display good mobility, there is no aortic stenosis, there is mild aortic insufficiency. Mitral Valve Mitral valve is minimally thickened, there is mild mitral regurgitation. Tricuspid Valve Tricuspid valve is grossly normal, there is mild tricuspid regurgitation, tricuspid regurgitation jet velocity is inadequate for calculation of the right ventricular systolic pressure. Pulmonic Valve Pulmonic valve is poorly visualized. Great Vessels Aortic root is normal size. Pericardium No significant pericardial effusion noted. Conclusion 1. Mildly enlarged left atrium, normal left ventricular size, mild concentric left ventricular hypertrophy visually estimated ejection fraction 55% with no regional wall motion abnormality. Grade 1 diastolic dysfunction seen without tissue Doppler evidence of raise left atrial pressure. 2. Mild aortic, mild mitral and tricuspid regurgitation. 3. No significant pericardial effusion noted. Electronically signed by : Jignesh Ramirez, 03/24/2020:34:03
== END ==
PROVIDERS: PCP Family Medicine; Visit Provider Internal Medicine
DX: R07.9 Chest pain, unspecified (principal)
CPT/HCPCS: 93306

== ENCOUNTER 2020-04-15 10:45 | Emergency (ER) | payer MEDICARE, SELFPAY ==
[2020-04-15] VITALS (10 sets, daily range): BP systolic 68–181; BP diastolic 37–151; PULSE 70–78; RESP 16–17; TEMP 36.6–36.7; O2SAT 91–98; BMI 30.4
--- NOTE | 2020-04-15 10:40 | ECG_ITS ---
APPROVED REPORT Exam: Resting ECG HR:71 bpm ECG Measurements Heart Rate 71 AXES WV 182 P 29 QRSd 96 QRS -23 QT 444 T 118 QTc 482 <Conclusion> AV sequential or dual chamber electronic pacemaker Electronically signed by : Shay Oro, 04/20/2020 21:24:24
--- NOTE | 2020-04-15 10:50 | XR_ITS ---
PROCEDURE: XR CHEST PORTABLE CLINICAL HISTORY: CP, soa Nonsmoker. COMPARISON: CXR1VP XR chest portable from 10/02/2018 Chest from 04/24/2019 XR CHEST PORTABLE from 03/21/2020 FINDINGS: Again noted a left subclavian double lead cardiac pacemaker in position. The lungs are somewhat under expanded. No acute bony abnormalities. There is a stable mild cardiomegaly. Again noted multiple median sternotomy wires, from prior open heart surgery. Mild atherosclerotic tortuosity of the aortic arch. The lungs are unremarkable without infiltrates, suspicious nodules, or pleural effusions. IMPRESSION: 1. Stable mild cardiomegaly. No acute findings. Dictated by: Juan David Traore 04/15/2020 11:16 Electronically signed by Juan David Traore in [place] 04/15/2020 11:16
[2020-04-15 11:01] LABS: Chloride 96 mmol/L (98-107); Potassium 3.3 mmoL/L (3.5-5.1); Sodium 137 mmol/L (136-145)
[2020-04-15 11:04] LABS: Anion Gap 17.3 mEq/L (5-15); Basophils # 0.1 K/mm3 (0-0.2); Basophils % 0.6 % (0.1-2.0); Blood Urea Nitrogen 25 mg/dl (9-20); Carbon Dioxide 27 mmol/L (22.0-30.0); Creatinine Clearance Estimated 31 mL/min (50-200); Eosinophils # 0.3 K/mm3 (0.0-0.4); Eosinophils % 3.1 % (0.1-12.0); Estimated Glomerular Filt Rate 23 ml/min (>60); GFR (African American) 27 ML/MIN (>60); Hemoglobin 12.4 g/dL (14.1-18.0); Lymphocytes # 1.6 K/mm3 (0.7-4.5); Lymphocytes % 15.3 % (10-50); Mean Corpuscular HGB Conc 32.7 g/dL (31.8-35.4); Mean Corpuscular Hemoglobin 28.5 pg (27.0-31.2); Mean Platelet Volume 7.6 fl (7.4-10.4); Monocytes # 0.5 K/mm3 (0.1-1.0); Monocytes % 4.3 % (1.7-9.3); Neutrophils # 8.1 K/mm3 (1.8-7.8); Neutrophils % 76.7 % (37.0-80.0); Platelet Count 198 K/mm3 (142-424); Red Blood Count 4.37 M/mm3 (4.60-6.20); Red Cell Distribution Width 14.5 % (11.5-17.5); White Blood Count 10.5 K/mm3 (4.8-10.8)
--- NOTE | 2020-04-15 11:04 | HMH.EDCP ---
ED Disposition Clinical Impression: Dehydration, Acute kidney injury Hypotension Qualifiers: Hypotension type: unspecified hypotension type Qualified Code(s): I95.9 - Hypotension, unspecified Chest pain Qualifiers: Chest pain type: unspecified Qualified Code(s): R07.9 - Chest pain, unspecified Disposition: Home, Self-Care Condition on Discharge: Good Instructions: DI for Atypical Chest Pain, DI for Dehydration -- Adult, DI for Acute Kidney Injury, DI for Hypotension Additional Instructions: Stop Bumex and spironolactone until you have gained 6 pounds. If blood pressure does not improve throughout the evening, return to the emergency department for admission to the hospital and further monitoring. Referrals: Chicho Claros [Primary Care Provider] - 3 days Artie Dale MD [Staff Physician] - 7-14 days - Critical Care Critical Care Time: No Attestation: On , the high probability of a clinically significant, sudden or life threatening deterioration of the following system(s) required my full and direct attention, intervention and personal management. The time I documented below is in addition to time spent performing reported procedures but includes the following listed in this critical care notation. Total Critical Care Time: 45 Vital system(s) involved:: Circulatory Failure, Metabolic Failure, Respiratory Failure, Renal Failure My critical care processes included: Assessment & monitoring of V/S, Initial and Re-exams, Data Review/Interpretation, Coordinating Care, Medication Orders and management, Documentation Medical Decision Making - Medical Records Medical records reviewed: Yes: I reviewed the patient's medical records. - Gabe Inquiry Pt receiving controlled substance: No Vital Signs: 04/15/20 10:46 04/15/20 11:04 04/15/20 11:45 Temperature 98.1 F Temperature Source Oral Pulse Rate [Right] 70 70 Respiratory Rate 17 Blood Pressure [Right Arm] 181/151 H 150/100 H 68/42 L Blood Pressure Mean [Right Arm] 161 116 50 Blood Pressure Source [Right Arm] Manual Cuff/ Auscultation Blood Pressure Position [Right Arm] Sitting 02 Sat by Pulse Oximetry 91 L Oxygen Delivery Method Room Air 04/15/20 12:06 04/15/20 12:44 04/15/20 13:05 Temperature Temperature Source Pulse Rate [Right] 73 70 72 Respiratory Rate Blood Pressure [Right Arm] 70/37 L 80/43 L 87/64 L Blood Pressure Mean [Right Arm] 48 55 71 Blood Pressure Source [Right Arm] Automatic Cuff Automatic Cuff Automatic Cuff Blood Pressure Position [Right Arm] Sitting Sitting Sitting 02 Sat by Pulse Oximetry 92 L 92 L 95 Oxygen Delivery Method Room Air Room Air Room Air 04/15/20 13:20 04/15/20 14:30 Temperature Temperature Source Pulse Rate [Right] 70 70 Respiratory Rate Blood Pressure [Right Arm] 78/55 L 84/47 L Blood Pressure Mean [Right Arm] 62 59 Blood Pressure Source [Right Arm] Automatic Cuff Automatic Cuff Blood Pressure Position [Right Arm] Sitting Sitting 02 Sat by Pulse Oximetry 95 92 L Oxygen Delivery Method Room Air Room Air - Lab Data Lab Results 04/15/20 10:45: WBC 10.5, RBC 4.37 L, Hgb 12.4 L, Hct 38.0 L, MCV 87.0, MCH 28.5, MCHC 32.7, RDW 14.5, Plt Count 198, MPV 7.6, Neut % (Auto) 76.7, Lymph % (Auto) 15.3, [place] % (Auto) 4.3, Eos % (Auto) 3.1, Baso % (Auto) 0.6, Neut # (Auto) 8.1 H, Lymph # (Auto) 1.6, [place] # (Auto) 0.5, Eos # (Auto) 0.3, Baso # (Auto) 0.1 04/15/20 10:45: Sodium 137, Potassium 3.3 L, Chloride 96 L, Carbon Dioxide 27, Anion Gap 17.3 H, BUN 25 H, Creatinine 2.80 H, Estimated Creat Clear 31, Estimated GFR 23 L, Est GFR ( Amer) 27 L, Glucose 183 H, Calcium 8.9, Troponin I 0.04 H, NT-Pro-B Natriuret Pep 353 H 04/15/20 10:45: Total Bilirubin 0.4, Direct Bilirubin 0.1, Conjugated Bilirubin 0.0, Indirect Bilirubin 0.3, Unconjugated Bilirubin 0.3, AST 41, ALT 26, Alkaline Phosphatase 91, NT-Pro-B Natriuret Pep 338 H, Total Protein 7.3, Albumin 3.8, Lipase 245 04/15/20 12:55: Urine Color
[2020-04-15 11:05] LABS: Calcium 8.9 mg/dl (8.4-10.2); Glucose 183 mg/dl (74-100)
[2020-04-15 11:14] LABS: NT Pro Brain Natriuretic Pep. 353 pg/mL (0-125)
[2020-04-15 11:17] LABS: Troponin I 0.04 ng/ml (0.00-0.034)
[2020-04-15 11:24] LABS: Alanine Aminotransferase 26 U/L (12-78); Alkaline Phosphatase 91 U/L (38-126); Aspartate Amino Transferase 41 U/L (17-59); Bilirubin,Direct 0.1 mg/dl (0.0-0.4); Bilirubin,Indirect 0.3 mg/dL (0.0-0.9); Bilirubin,Total 0.4 mg/dl (0.2-1.3); Bilirubin,Unconjugated 0.3 mg/dL (0.0-1.1); Lipase 245 U/L (23-300)
[2020-04-15 11:25] LABS: Albumin Level 3.8 g/dl (3.5-5.0); Total Protein,Serum 7.3 g/dl (6.3-8.2)
[2020-04-15 11:34] LABS: NT Pro Brain Natriuretic Pep. 338 pg/mL (0-125)
--- NOTE | 2020-04-15 11:35 | PC.NURSE ---
Dr Vaughn speaking with Deepak Evans at this time.
--- NOTE | 2020-04-15 11:53 | HMH.CNCARD ---
History of Present Illness Consult date: 04/15/20 Requesting physician: Kristian Vaughn Consult reason: chest pain Chief complaint: chest pain Additional Medical History:: 1. Coronary artery disease and cardiomyopathy A. History of 5 vessel coronary bypass grafting, 1998 B. History of 20 coronary stents placed C. Cardiomyopathy with ejection fraction reportedly at about 43% per patient. D. Echocardiogram x2, 09/2018 both showing ejection fraction in the 50-60% range. E. R and L heart cath, 12/2016, [facility], Dr. Dale, showing- stenting distal dominant RCA and to the posterior descending artery, Cardiomyopathy with EF 10% ,severely elevated LVEDP and left sided filling pressures, moderate to severe pulmonary HTN 2. History of paroxysmal atrial fibrillation A. On Xarelto anticoagulation B. BRYCE/Cardioversion, , 2016 C. Amiodarone therapy stopped 07/2017 3. Permanent pacemaker placement 4. Hypertension A. Echo, 03/2020, 1. Mildly enlarged left atrium, normal left ventricular size, mild concentric left ventricular hypertrophy visually estimated ejection fraction 55% with no regional wall motion abnormality. Grade 1 diastolic dysfunction seen without tissue Doppler evidence of raise left atrial pressure. 2. Mild aortic, mild mitral and tricuspid regurgitation. 3. No significant pericardial effusion noted 5. Hyperlipidemia 6. Infrarenal Abdominal aortic aneurysm, 3.6 X 3.5 cm, 09/2018 7. Chronic kidney disease, stage II 8. Ex-smoker 9. TRUE ANAPHYLACTIC REACTION TO IV CONTRAST History of present illness: This is a 69-year-old male with a past medical history significant for hypertension, hyperlipidemia, coronary artery disease, CHF, A. fib who presents to the emergency department for evaluation of midsternal chest pain associated with generalized fatigue and shortness of breath that started this morning. Patient also thinks he may have had a microsecond episode of syncope this morning as well. No recent fevers, vomiting, diarrhea. He has nonradiating substernal chest pain that feels like a fist in his chest. No exacerbating or alleviating factors. The pain is constant. No new cough. The above per Dr. Vaughn in ER. Patient relates diarrhea off and on for a week with a loss of about 8 pounds. Blood pressure at the time of our exam is in the 70s over 40s millimeters of mercury. He is getting IV fluids. Creatinine noted to be 2.8 with elevated BUN. Patient states the chest pain was brief and minimal. He has been active at home without any symptoms recently. Recent echocardiogram shows ejection fraction of 55%. Patient does not feel he needs to be hospitalized and is actually requesting to go home. [facility] History Medical History: Reports:: Atherosclerotic Heart Disease, Atrial Fibrillation, Cardiomyopathy, Congestive Heart Failure, Coronary Artery Disease, Hyperlipidemia, Hypertension, Internal Pacemaker, Renal Disease Denies:: Cancer, Diabetes Mellitus Type 1, Diabetes Mellitus Type 2, MRSA *Have you ever received a pneumonia vaccine?: Yes *Have you received a flu vaccine this season?: Yes Other Medical History: Reports: Arthritis. Denies: Hypothyroidism Laterality Cases: Right: Arthroscopy Knee, Bilateral: Tonsillectomy, Other Other Surgeries: Yes: Angioplasty, Appendectomy, EGD, Hernia Repair, Pacemaker, Other Amputation: No Fractures: Yes (ORIF of wrist and ankle) - *Social History Smoking Status: Former smoker Tobacco Type: cigarettes # Packs/Day (cigarettes): 10 Alcohol Intake: never Substance Use Type: denies use *Occupational Status:: retired Housing: house Household Members: spouse *Travel in the last 8 weeks: None Family Hx:: Cancer, Heart Attack Meds Home Medications Medication Instructions Recorded Confirmed Type fluoxetine 40 mg capsule 40 mg PO DAILY 09/27/17 04/15/20 History pantoprazole 40 mg tablet,delayed 40 mg PO DAILY 09/27/17 04/15/20 History release pramipexol
--- NOTE | 2020-04-15 12:17 | PC.NURSE ---
Deepak Evans and Dr Dale at bedside at this time.
[2020-04-15 13:01] LABS: Microscopic, Urine URINE MICROSCOPIC (MICROSCOPIC)
[2020-04-15 13:06] LABS: Appearance,Urine CLEAR (Clear); Blood, Urine 3+ (Negative); Color,Urine YELLOW (Yellow); Glucose,Urine (UA) Negative (Negative); Ketones,Urine Negative (Negative); Leukocyte Esterase,Urine Negative (Negative); Nitrate,Urine Negative (Negative); PH,Urine 5.5 (5.0-8.5); Protein,Urine TRACE (Negative); Specific Gravity, Urine 1.025 (1.005-1.030); Urobilinogen,Urine 0.2 EU/dl (0.2)
[2020-04-15 13:08] LABS: Bilirubin,Urine 1+ (Negative)
[2020-04-15 14:19] LABS: Troponin I 0.03 ng/ml (0.00-0.034)
== END 2020-04-15 15:02 | disposition home or self-care (01) ==
PROVIDERS: Emergency Provider Emergency Medicine; PCP Family Medicine
DX: E86.0 Dehydration (principal); N17.9 Acute kidney failure, unspecified; I95.9 Hypotension, unspecified; I25.10 Atherosclerotic heart disease of native coronary artery without angina pectoris; E78.5 Hyperlipidemia, unspecified; I10 Essential (primary) hypertension; Z95.0 Presence of cardiac pacemaker; Z87.891 Personal history of nicotine dependence
CPT/HCPCS: 36415; 71045; 80048; 80076; 81001; 83690; 83880; 84484; 85025; 93005; 96365; 96366; 96367; 99284

== ENCOUNTER 2020-05-01 07:50 | Day surgery (SDC) | payer MEDICARE, SELFPAY ==
[2020-05-01] VITALS (8 sets, daily range): BP systolic 110–155; BP diastolic 66–90; PULSE 70–75; RESP 12–20; TEMP 36.6; O2SAT 70–98; BMI 35.0
--- NOTE | 2020-05-01 | IR_ITS ---
APPROVED REPORT Patient Location: Outpatient Heavy Duty Press Operator: CARL Luther RT (R) PROCEDURES Right internal jugular vein access Right heart catheterization Informed consent was obtained prior to the procedure. COMPLICATIONS none Estimated Blood Loss: less than 10 mls TECHNIQUE One percent lidocaine was used to anesthetize the right anterior aspect of the neck. A review scheduling coordinator needle was used to identify the right internal jugular vein. Following this a larger cannulation needle was used to cannulate the right internal jugular vein and a wire was passed into the vein. Prior to the 7 Surinamese sheath being inserted the wire was confirmed under fluoroscopic guidance to be in the inferior vena cava. A 7 [place]amese sheath was introduced and a [place] catheter was floated using hemodynamic waveforms in the pulmonary artery, right ventricle , and right atrium. Saturations were obtained in the pulmonary artery and the right atrium. At the end of the procedure the patient was transferred to the postop holding area in stable condition for sheath removal. ANGIOGRAPHIC RESULTS Right atrial pressure 8 mmHg Pulmonary artery pressure 52/28 mmHg Artery occlusion pressure 26 mmHg Right atrial saturation 60% Pulmonary artery saturation 62% IMPRESSION Severe pulmonary hypertension secondary to decompensated left-sided congestive heart failure PLAN 1. Patient requires better diuresis 2. I recommend decreasing patient's body weight by at least 5 pounds and then consider repeating right heart cath based on symptoms 3. Consider cardio Mem if it is possible to deploy this without using IV contrast Electronically signed by : Artie Dale, 05/01/2020 11:06:42
[2020-05-01 08:37] LABS: Chloride 104 mmol/L (98-107); Sodium 143 mmol/L (136-145)
[2020-05-01 08:38] LABS: Basophils # 0.1 K/mm3 (0-0.2); Basophils % 0.6 % (0.1-2.0); Eosinophils # 0.3 K/mm3 (0.0-0.4); Eosinophils % 4.2 % (0.1-12.0); Hematocrit 35.8 % (42.0-52.0); Hemoglobin 11.9 g/dL (14.1-18.0); Lymphocytes # 1.5 K/mm3 (0.7-4.5); Lymphocytes % 19.4 % (10-50); Mean Corpuscular HGB Conc 33.3 g/dL (31.8-35.4); Mean Corpuscular Hemoglobin 28.8 pg (27.0-31.2); Mean Corpuscular Volume 86.5 fl (80-94); Mean Platelet Volume 8.3 fl (7.4-10.4); Monocytes # 0.3 K/mm3 (0.1-1.0); Monocytes % 4.2 % (1.7-9.3); Neutrophils # 5.4 K/mm3 (1.8-7.8); Neutrophils % 71.5 % (37.0-80.0); Platelet Count 244 K/mm3 (142-424); Potassium 3.3 mmoL/L (3.5-5.1); Red Blood Count 4.14 M/mm3 (4.60-6.20); Red Cell Distribution Width 14.2 % (11.5-17.5); White Blood Count 7.5 K/mm3 (4.8-10.8)
[2020-05-01 08:40] LABS: Blood Urea Nitrogen 11 mg/dl (9-20); Creatinine Clearance Estimated 99 mL/min (50-200); Estimated Glomerular Filt Rate 96 ml/min (>60); GFR (African American) 116 ML/MIN (>60)
[2020-05-01 08:41] LABS: Anion Gap 11.3 mEq/L (5-15); Calcium 9.4 mg/dl (8.4-10.2); Carbon Dioxide 31 mmol/L (22.0-30.0); Glucose 137 mg/dl (74-100)
[2020-05-01 09:06] LABS: Coronavirus 19 IgG Antibody Negative (Negative); Coronavirus 19 IgM Antibody Negative (Negative)
== END 2020-05-01 13:29 | disposition home or self-care (01) ==
LOC: CATHLAB 07:52
PROVIDERS: PCP Family Medicine; Visit Provider Internal Medicine
DX: I27.20 Pulmonary hypertension, unspecified (principal); I11.0 Hypertensive heart disease with heart failure; I50.43 Acute on chronic combined systolic (congestive) and diastolic (congestive) heart failure; I48.0 Paroxysmal atrial fibrillation; Z95.1 Presence of aortocoronary bypass graft
CPT/HCPCS: 80048; 85025; 86328; 93451; 99152; C1894; J1644

== ENCOUNTER 2020-05-02 10:04 | Emergency (ER) | payer MEDICARE, SELFPAY ==
[2020-05-02] VITALS (10 sets, daily range): BP systolic 116–151; BP diastolic 63–86; PULSE 68–71; RESP 17–18; TEMP 36.4–36.7; O2SAT 91–97; BMI 46.7; BMI 34.4
--- NOTE | 2020-05-02 10:00 | ECG_ITS ---
APPROVED REPORT Exam: Resting ECG HR:69 bpm ECG Measurements Heart Rate 69 AXES VT 204 P 21 QRSd 94 QRS -1 QT 398 T 171 QTc 426 <Conclusion> Electronic atrial pacemaker ST & T wave abnormality, consider anterolateral ischemia Abnormal ECG Electronically signed by : Alen Whalen, 05/02/2020 18:52:13
--- NOTE | 2020-05-02 10:33 | XR_ITS ---
PROCEDURE: XR CHEST 2V CLINICAL HISTORY: chest jalen, patient choked on meat last evening COMPARISON: CR Chest from 04/24/2019 CR XR CHEST PORTABLE from 03/21/2020 CR XR CHEST PORTABLE from 04/15/2020 FINDINGS: The lung madrigal are well-expanded and appear clear of infiltrate. There is a stable calcified granuloma near the left costophrenic angle. There is borderline cardiomegaly with aortic tortuosity however the vascularity is normal and there is no pleural fluid. The left-sided cardiac pacemaker is again noted with dual chamber electrodes both in good position. There is mild diffuse dextroscoliotic curvature of the lower thoracic spine. IMPRESSION: No acute findings. Dictated by: Dr. Casimiro Rebolledo MD 05/02/2020 10:56 Dr. Casimiro Rebolledo MD in [place] 05/02/2020 10:56
--- NOTE | 2020-05-02 10:39 | HMH.EDGENADL ---
ED Disposition Clinical Impression: Esophageal foreign body Disposition: Home, Self-Care Condition on Discharge: Good Instructions: DI for Acute Pain -- Adult Referrals: Chicho Claros [Primary Care Provider] - - Critical Care Critical Care Time: No Attestation: On 05/02/20, the high probability of a clinically significant, sudden or life threatening deterioration of the following system(s) required my full and direct attention, intervention and personal management. The time I documented below is in addition to time spent performing reported procedures but includes the following listed in this critical care notation. Medical Decision Making - Medical Records Medical records reviewed: Yes: I reviewed the patient's medical records. - Gabe Inquiry Pt receiving controlled substance: No Vital Signs: 05/02/20 10:25 05/02/20 10:51 Temperature 98.1 F Temperature Source Oral Pulse Rate [Right Radial] 70 70 Respiratory Rate 17 Blood Pressure [Right Arm] 144/82 H 133/79 Blood Pressure Mean [Right Arm] 102 97 Blood Pressure Source [Right Arm] Automatic Cuff Blood Pressure Position [Right Arm] Sitting 02 Sat by Pulse Oximetry 93 L 93 L Oxygen Delivery Method Room Air Room Air - Lab Data Lab results reviewed: Yes: I reviewed the patient's lab results. Lab Results 05/02/20 10:15: WBC 8.9, RBC 4.33 L, Hgb 12.7 L, Hct 38.7 L, MCV 89.4, MCH 29.2, MCHC 32.7, RDW 14.2, Plt Count 251, MPV 7.8, Neut % (Auto) 76.0, Lymph % (Auto) 15.6, Mccreary % (Auto) 4.2, Eos % (Auto) 3.3, Baso % (Auto) 0.8, Neut # (Auto) 6.8, Lymph # (Auto) 1.4, Mccreary # (Auto) 0.4, Eos # (Auto) 0.3, Baso # (Auto) 0.1 05/02/20 10:15: Sodium 145, Potassium 3.4 L, Chloride 103, Carbon Dioxide 33 H, Anion Gap 12.4, BUN 16 D, Creatinine 0.90, Estimated Creat Clear 97, Estimated GFR 83, Est GFR ( Amer) 101, Glucose 135 H, Calcium 9.9, Total Bilirubin 0.7, AST 45, ALT 31, Alkaline Phosphatase 109, Troponin I 0.01, Total Protein 7.9, Albumin 4.4, Globulin 3.5 H, Albumin/Globulin Ratio 1.3 Result diagrams: 05/02/20 10:15 05/02/20 10:15 Orders (Tests/Meds): ED MEDICATIONS Generic Name Dose Route Start Last Admin Trade Name Freq PRN Reason Stop Dose Admin Sodium Chloride 10 ml 05/02/20 10:14 Sodium Chloride 0.9% 10ml Vial IV 06/01/20 10:13 NEEDED PRN to Dilute Lorazepam inj Discontinued Medications Generic Name Dose Route Start Last Admin Trade Name Freq PRN Reason Stop Dose Admin Glucagon 1 mg 05/02/20 11:00 05/02/20 11:07 Glucagen 1mg/Ml Vial IV 05/02/20 11:01 1 mg ONCE ONE Administration Lorazepam 1 mg 05/02/20 10:14 05/02/20 10:15 Ativan 2mg/Ml Vial IV 05/02/20 10:15 1 mg ONCE ONE Administration Morphine Sulfate 4 mg 05/02/20 10:14 05/02/20 10:16 Morphine 4mg/Ml Syringe IV 05/02/20 10:15 4 mg ONCE ONE Administration Ondansetron HCl 4 mg 05/02/20 10:14 05/02/20 10:16 Zofran 4mg/2ml Vial IV 05/02/20 10:15 4 mg ONCE ONE Administration ORDERS Category Date Time Status Troponin I Q3H Lab 05/02/20 13:45 Ordered Troponin I Q3H Lab 05/02/20 16:45 Ordered - Radiology Data #1 Image(s): Chest Preliminary Findings: Normal/NAD - ECG Data Tracing #2 I reviewed this ECG and interpreted as documented below: Normal Sinus Rhythm: Yes Medical Decision Narrative: I spoke with cardiology and they cleared him for the EGD. And I also spoke to Dr. Javier who is working his office was not and doing procedures today then I spoke with Dr. Thomas who is actually doing scopes and he said he would work on it before 3 PM today and get this food bolus dislodged. General Adult HPI - General Chief complaint: PAIN Stated complaint: Chest Pain Time Seen by Provider: 05/02/20 10:32 Mode of Arrival: Ambulatory Limitations: No Limitations Description of Symptoms (Recalled from ER Triage Doc. by RN): pt presents to ed with c/o chest tightness and pain. pt state
[2020-05-02 10:40] LABS: Basophils # 0.1 K/mm3 (0-0.2); Basophils % 0.8 % (0.1-2.0); Eosinophils # 0.3 K/mm3 (0.0-0.4); Eosinophils % 3.3 % (0.1-12.0); Hematocrit 38.7 % (42.0-52.0); Hemoglobin 12.7 g/dL (14.1-18.0); Lymphocytes # 1.4 K/mm3 (0.7-4.5); Lymphocytes % 15.6 % (10-50); Mean Corpuscular HGB Conc 32.7 g/dL (31.8-35.4); Mean Corpuscular Hemoglobin 29.2 pg (27.0-31.2); Mean Corpuscular Volume 89.4 fl (80-94); Mean Platelet Volume 7.8 fl (7.4-10.4); Monocytes # 0.4 K/mm3 (0.1-1.0); Monocytes % 4.2 % (1.7-9.3); Neutrophils # 6.8 K/mm3 (1.8-7.8); Platelet Count 251 K/mm3 (142-424); Red Blood Count 4.33 M/mm3 (4.60-6.20); Red Cell Distribution Width 14.2 % (11.5-17.5); White Blood Count 8.9 K/mm3 (4.8-10.8)
[2020-05-02 10:41] LABS: Chloride 103 mmol/L (98-107); Sodium 145 mmol/L (136-145)
[2020-05-02 10:42] LABS: Potassium 3.4 mmoL/L (3.5-5.1)
[2020-05-02 10:44] LABS: Alanine Aminotransferase 31 U/L (12-78); Albumin Level 4.4 g/dl (3.5-5.0); Albumin/Globulin Ratio 1.3 (1.1-1.8); Alkaline Phosphatase 109 U/L (38-126); Anion Gap 12.4 mEq/L (5-15); Aspartate Amino Transferase 45 U/L (17-59); Bilirubin,Total 0.7 mg/dl (0.2-1.3); Blood Urea Nitrogen 16 mg/dl (9-20); Carbon Dioxide 33 mmol/L (22.0-30.0); Creatinine Clearance Estimated 97 mL/min (50-200); Estimated Glomerular Filt Rate 83 ml/min (>60); GFR (African American) 101 ML/MIN (>60); Globulin 3.5 g/dL (1.3-3.2); Total Protein,Serum 7.9 g/dl (6.3-8.2)
[2020-05-02 10:45] LABS: Calcium 9.9 mg/dl (8.4-10.2); Glucose 135 mg/dl (74-100)
--- NOTE | 2020-05-02 10:46 | PC.NURSE ---
Pt to rad.
--- NOTE | 2020-05-02 10:49 | PC.NURSE ---
Pt returned from rad.
[2020-05-02 10:57] LABS: Troponin I 0.01 ng/ml (0.00-0.034)
--- NOTE | 2020-05-02 11:03 | PC.NURSE ---
Tessa Suarez, DISASTER RECOVERY MANAGER to come see pt.
--- NOTE | 2020-05-02 11:16 | PC.NURSE ---
ER speaking with BIJU Graves with cardiology
--- NOTE | 2020-05-02 11:17 | PC.NURSE ---
MARILEE MICHELLE speaking with Dr. Lundy (surgeon instructional systems designer)
--- NOTE | 2020-05-02 11:22 | PC.NURSE ---
contacted pre op to contact Dr. Thomas, spoke with Murali who states Dr Thomas is in the scope room but he will have him contact ER
--- NOTE | 2020-05-02 11:26 | PC.NURSE ---
Tessa Suarez APRN at bedside
--- NOTE | 2020-05-02 11:29 | PC.NURSE ---
MARILEE MICHELLE speaking with Dr. Thomas
--- NOTE | 2020-05-02 11:30 | PC.NURSE ---
Per MARILEE MICHELLE, Dr Thomas states they will come get pt for a scope sometime before 3pm today. MARILEE MICHELLE updated pt on POC at this time
--- NOTE | 2020-05-02 11:32 | HMH.CNCARD ---
History of Present Illness Consult date: 05/02/20 Requesting physician: Justin Hale Consult reason: chest pain Chief complaint: chest pain History of present illness: This is a 69-year-old white gentleman who presented to the emergency department today with complaints of chest tightness. The patient underwent right cardiac catheterization yesterday and was started on diuretics. He states that while eating last night he got choked on his food and had trouble swallowing. Since that time he has been unable to swallow any foods or fluids. He states that with the inability to swallow he has had tightness and pain in his chest going up into his throat since that time. He states that it is a tightness. It does not radiate. He is short of breath and having lots of nausea and vomiting. He states that he feels very dehydrated as well as shaky and nervous. He states this morning he is still unable to swallow. He reports that he is even unable to swallow his own saliva. He denies any fever, chills, diarrhea. [facility] History I have reviewed the patient's past medical history: Yes Medical History: Reports:: Anxiety, Atherosclerotic Heart Disease, Atrial Fibrillation, Cardiomyopathy, Congestive Heart Failure, Coronary Artery Disease, Diabetes Mellitus Type 2, Hyperlipidemia, Hypertension, Internal Pacemaker, Renal Disease Denies:: Cancer, Diabetes Mellitus Type 1, MRSA *Have you ever received a pneumonia vaccine?: Yes *Have you received a flu vaccine this season?: Yes Other Medical History: Reports: Arthritis. Denies: Hypothyroidism Laterality Cases: Right: Arthroscopy Knee, Bilateral: Tonsillectomy, Other Other Surgeries: Yes: Angioplasty, Appendectomy, EGD, Hernia Repair, Pacemaker, Other Amputation: No Fractures: Yes (ORIF of wrist and ankle) - *Social History Smoking Status: Former smoker Tobacco Type: cigarettes # Packs/Day (cigarettes): 10 Alcohol Intake: never Substance Use Type: denies use *Occupational Status:: retired Housing: house Household Members: spouse *Travel in the last 8 weeks: None - Psychiatric History Pschychiatric History:: Reports:: Anxiety Family Hx:: Cancer, Heart Attack Meds Home Medications Medication Instructions Recorded Confirmed Type fluoxetine 40 mg capsule 40 mg PO DAILY 09/27/17 05/01/20 History pantoprazole 40 mg tablet,delayed 40 mg PO DAILY 09/27/17 05/01/20 History release pramipexole 1.5 mg tablet 1.5 mg PO BID tab 09/27/17 05/01/20 History Trazodone HCl 200 mg PO HS 09/30/18 05/01/20 History Colchicine [Colcrys 0.6mg tablet] 0.6 mg PO BID 10/01/18 05/01/20 History Donepezil HCl [Aricept 10mg 10 mg PO HS 10/01/18 05/01/20 History tablet] Fluoxetine HCl [Prozac] 20 mg PO DAILY 10/01/18 05/01/20 History epinephrine 0.1 mg/0.1 mL 0.1 mg SQ NEEDED PRN each 10/25/18 05/01/20 History injection, auto-injector nitroglycerin 0.4 mg sublingual 0.4 mg SUBLINGUAL Q5-15M PRN #25 06/18/19 04/15/20 Rx tablet tab amlodipine 5 mg tablet 5 mg PO DAILY #90 tab 04/30/20 05/01/20 Rx bisoprolol fumarate 10 mg tablet 10 mg PO DAILY #90 tab 04/30/20 05/01/20 Rx bumetanide 2 mg tablet 2 mg PO DAILY PRN 04/30/20 05/01/20 History rivaroxaban 20 mg tablet 20 mg PO DAILY #90 tab 04/30/20 05/01/20 Rx spironolactone 50 mg tablet 50 mg PO BID #180 tab 04/30/20 05/01/20 Rx Allergies Allergy/AdvReac Type Severity Reaction Status Date / Time Iodinated Contrast Media Allergy Severe Anaphylaxis Verified 05/01/20 08:43 [Iodinated Contrast Media - Oral and] iodine Allergy Mild Verified 05/01/20 08:43 Exam Vital signs and Labs for Last 24 Hours: Temp Pulse Resp BP Pulse Ox 98.1 F 70 17 133/79 93 L 05/02/20 10:25 05/02/20 10:51 05/02/20 10:25 05/02/20 10:51 05/02/20 10:51 Laboratory Results - last 24 hr 05/02/20 10:15: WBC 8.9, RBC 4.33 L, Hgb 12.7 L, Hct 38.7 L, MCV 89.4, MCH 29.2, MCHC 32.7, RDW 14.2, Plt Count 251, MPV 7.8, Neut % (Auto) 76.0, Lymph % (Auto) 15.6, [place]
--- NOTE | 2020-05-02 11:55 | PC.NURSE ---
patient and family updated on plan of care. both deny needs or questions. pt awaiting surgery readiness.
--- NOTE | 2020-05-02 12:24 | PC.NURSE ---
notified milvia in lab of igg/igm order per request of odalys in pre op
--- NOTE | 2020-05-02 12:24 | PC.NURSE ---
or at bedside for transport to pre op.
[2020-05-02 12:47] LABS: Coronavirus 19 IgG Antibody Negative (Negative); Coronavirus 19 IgM Antibody Negative (Negative)
--- NOTE | 2020-05-02 14:13 | HMH.PROC ---
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 The patient states that he went home and had a meal and had a food impaction within the esophagus. He does have a history of GERD and takes PPI therapy. He has never had a food impaction reports no heartburn or reflux recently. He reports no preceding dysphagia. He cannot tolerate swallowing water presently. Glucagon was given and this did not improve the impaction. He reports no belching. He has had no recent weight loss. Procedure: Prior to the procedure, a history and physical exam was performed, and patient's medications and allergies were reviewed. The risks, benefits and alternatives of the sedation and procedure were discussed with the patient. All questions were answered and informed consent was obtained. The patient was brought to the procedure room. Patient identification and proposed procedure were verified by the physician and the nurse. The patient was placed in a left lateral decubitus position and the scope was passed under direct vision. Throughout the procedure, the patient's blood pressure, pulse, and oxygen saturations were monitored continuously. The upper GI endoscopy was accomplished without difficulty. The patient tolerated the procedure well. Findings: The scope was passed directly into the upper esophagus and advanced to the distal esophagus. There was a moderate amount of residue with corn and plant residue throughout the esophagus. There was a food impaction in the distal esophagus. This was difficult to remove because it was nonadherent and I was able to remove with the Rescue Net (Microvasive) piece mealing this meat impaction. I did use 3 nets total. We did use a 3 prong device to remove this that failed. I eventually used a wire-guided balloon and the wire was able to slip past the esophageal food impaction and after this happened the impacted food itself glided into the stomach. The scope was then passed to the third portion of the duodenum. The post bulbar duodenum and duodenal bulb were normal with normal mucosa and conniventes. The scope was withdrawn through a normal duodenal bulb and pylorus into the stomach. The remainder of the antrum, body and fundus of the stomach were grossly normal. Upon retroflexion there was a small hiatal hernia. The scope was then withdrawn into the esophagus. There was superficial ulceration circumferentially distally with stricturing of the distal esophagus. Cold biopsies were obtained. The superficial ulceration appeared to be esophagitis and possibly pill induced esophagitis. Biopsies were obtained from this area. Next, this was slowly dilated gently up to 16.5 mm with a TTS hydrostatic balloon. The procedure was then ended. There was no mass lesion or obvious Gomez's or erosive reflux esophagitis. There was no clear evidence of eosinophilic esophagitis. Impression: 1. Esophageal food impaction status post removal, biopsies and balloon dilation 2. Distal esophageal stricture with ulcerative esophagitis (rule out reflux esophagitis versus pill induced esophagitis with stricturing) 3. Small hiatal hernia Plan: I would continue PPI therapy. I would also strongly encourage him to chew food fully. This may be a primary mastication problem. I will look at his medication list to see if this is pill induced esophagitis.
== END 2020-05-02 15:15 | disposition home or self-care (01) ==
PROVIDERS: Internal Medicine Gastroenterology; Emergency Provider Family Medicine; PCP Family Medicine
PROC: 0DJ08ZZ Inspection of Upper Intestinal Tract, Via Natural or Artificial Opening Endoscopic (ICD-10-PCS; CPT 43235; principal; 2020-05-02 12:45)
DX: T18.128A Food in esophagus causing other injury, initial encounter (principal); I25.10 Atherosclerotic heart disease of native coronary artery without angina pectoris; E11.9 Type 2 diabetes mellitus without complications; I48.91 Unspecified atrial fibrillation; I11.0 Hypertensive heart disease with heart failure; I50.33 Acute on chronic diastolic (congestive) heart failure
CPT/HCPCS: 43247; 43249; 71046; 80053; 84484; 85025; 86328; 88305; 93005; 96374; 96375; 99284; C1726; J1610; J2405

== ENCOUNTER 2020-05-20 09:20 | Observation (INO) | payer MEDICARE, SELFPAY ==
--- NOTE | 2020-05-20 09:41 | PC.NURSE ---
Pt arrived to the floor at this time.
[2020-05-20 09:45] VITALS: BP 121/70; PULSE 68; RESP 18; TEMP 36.6; O2SAT 93; BMI 35.1
[2020-05-20 09:55] VITALS: O2SAT 93
--- NOTE | 2020-05-20 10:09 | HMH.CNCARD ---
History of Present Illness Consult date: 05/20/20 Requesting physician: Alec Bhandari Consult reason: chest pain, congestive heart failure Chief complaint: SOA, CP Additional Medical History:: 1. Coronary artery disease and cardiomyopathy A. History of 5 vessel coronary bypass grafting, 1998 B. History of 20 coronary stents placed C. Cardiomyopathy with ejection fraction reportedly at about 43% per patient. D. Echocardiogram x2, 09/2018 both showing ejection fraction in the 50-60% range. E. R and L heart cath, 12/2016, [facility], Dr. Dale, showing- stenting distal dominant RCA and to the posterior descending artery, Cardiomyopathy with EF 10% ,severely elevated LVEDP and left sided filling pressures, moderate to severe pulmonary HTN 2. History of paroxysmal atrial fibrillation A. On Xarelto anticoagulation B. BRYCE/Cardioversion, , 2016 C. Amiodarone therapy stopped 07/2017 3. Permanent pacemaker placement 4. Hypertension A. Echo, 03/2020, 1. Mildly enlarged left atrium, normal left ventricular size, mild concentric left ventricular hypertrophy visually estimated ejection fraction 55% with no regional wall motion abnormality. Grade 1 diastolic dysfunction seen without tissue Doppler evidence of raise left atrial pressure. 2. Mild aortic, mild mitral and tricuspid regurgitation. 3. No significant pericardial effusion noted 5. Hyperlipidemia 6. Infrarenal Abdominal aortic aneurysm, 3.6 X 3.5 cm, 09/2018 7. Chronic kidney disease, stage II 8. Ex-smoker 9. TRUE ANAPHYLACTIC REACTION TO IV CONTRAST 10. Severe pulmonary hypertension A. Right heart catheterization, 05/01/2020, ANGIOGRAPHIC RESULTS Right atrial pressure 8 mmHg Pulmonary artery pressure 52/28 mmHg Artery occlusion pressure 26 mmHg Right atrial saturation 60% Pulmonary artery saturation 62% IMPRESSION Severe pulmonary hypertension secondary to decompensated left-sided congestive heart failure PLAN 1. Patient requires better diuresis 2. I recommend decreasing patient's body weight by at least 5 pounds and then consider repeating right heart cath based on symptoms 3. Consider cardio Mem if it is possible to deploy this without using IV contrast 11. Esophageal stricture with food impaction, 04/2020 A. EGD, Dr. Dc Thomas, 04/2020, 1. Esophageal food impaction status post removal, biopsies and balloon dilation 2. Distal esophageal stricture with ulcerative esophagitis (rule out reflux esophagitis versus pill induced esophagitis with stricturing) 3. Small hiatal hernia History of present illness: 69-year-old white male here in the hospital for planned right and left heart catheterization due to unstable angina and placement of CardioMEMS for management of congestive heart failure. Patient now relates that he has been taking Bactrim for 5 days for left lower extremity cellulitis which is recurrent. He originally had an episode approximately a month ago resolved with Keflex. He reports having lower extremity venous Dopplers last week that were normal. Patient continues to have some left lower extremity swelling with redness and warmth to touch. Dr. Dale did see the patient and informed him that the procedure will be canceled and postponed due to the left lower extremity cellulitis. He does want a make sure that there is no DVT and will have a lower extremity venous Doppler performed again today. 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 [facility] History Medical History: Reports:: Anxiety, Atherosclerotic Heart Disease, Atrial Fibrillation, Cardiomyopathy, Congestive Heart Failure, Coronary Artery Disease, Diabetes Mellitus Type 2, Hyperlipidemia, Hypertension, Internal Pacemaker, Renal Disease Denies:: Cancer, Diabetes Mellitus Type 1, MRSA *Have you ever received a pneumonia vaccine?: Yes *Have you received a flu vaccine this season?: Yes Other
--- NOTE | 2020-05-20 10:43 | PC.NURSE ---
to bring in patients home meds in the morning. They live 2 hours from here and unable to get them there today, Catrina from pharmacy notified.
--- NOTE | 2020-05-20 11:45 | CA_ITS ---
APPROVED REPORT Left Lower Extremity Venous Study for DVT. Wax Pot Tender: Montse Haque RVT Indications Lower Extremity Pain: Left Lower Extremity Edema: Left LLE swelling, cellulitis,GSV has been harvested for CABG Medications pt on Xarelto Vein Imaging CFV (L): compressive, spontaneous, phasic, augmentation FEM (L): compressive, spontaneous, phasic, augmentation POP (L): compressive, spontaneous, phasic, augmentation PTV (L): Compressible GSV (L): Not Visualized Peroneals (L):Compressible GAS (L): Compressible Findings Study suggests no evidence of DVT of the left lower extremity. Study suggests no evidence of SVT of the left lower extremity. Conclusion Study suggests no evidence of DVT of the left lower extremity. Study suggests no evidence of SVT of the left lower extremity. Electronically signed by : Mike Mora MD 05/20/2020 16:22:35
[2020-05-20 11:48] LABS: Magnesium 1.8 mg/dl (1.6-2.3)
[2020-05-20 11:58] LABS: NT Pro Brain Natriuretic Pep. 381 pg/mL (0-125)
[2020-05-20 15:49] VITALS: BP 113/62; PULSE 70; RESP 18; TEMP 36.8; O2SAT 96
== END 2020-05-20 16:45 | disposition home or self-care (01) ==
LOC: 2ND 09:23
PROVIDERS: Physician Assistant; Admitting Provider Family Medicine; PCP Family Medicine; Visit Provider Family Medicine
DX: I13.0 Hypertensive heart and chronic kidney disease with heart failure and stage 1 through stage 4 chronic kidney disease, or unspecified chronic kidney disease (principal); I50.42 Chronic combined systolic (congestive) and diastolic (congestive) heart failure; E03.9 Hypothyroidism, unspecified; L03.116 Cellulitis of left lower limb; Z95.1 Presence of aortocoronary bypass graft; Z95.0 Presence of cardiac pacemaker; I48.0 Paroxysmal atrial fibrillation; N18.9 Chronic kidney disease, unspecified; I27.20 Pulmonary hypertension, unspecified
CPT/HCPCS: G0379; 83735; 83880; 93971; G0378

== ENCOUNTER → 2020-06-02 09:34 | Outpatient (CLI) | payer MEDICARE, SELFPAY ==
--- NOTE | 2020-06-02 09:39 | XR_ITS ---
PROCEDURE: XR SHOULDER LT MIN 2V CLINICAL INDICATION: shoulder pain COMPARISON: No exams were available for comparison FINDINGS: No fracture or dislocation. No lytic or blastic change. There is normal mineralization. There are mild osteoarthritic changes of the glenohumeral joint. Other findings:Pacemaker generator is present in the subclavian area causing some obscuration of the humeral head on one view. There has been a prior median sternotomy with fracture of the superior most median sternotomy wire. There are mild osteoarthritic changes of the AC joint. IMPRESSION: Mild osteoarthritic changes of the left shoulder Dictated by: Mike Mora MD 06/02/2020 12:35 Mike Mora MD in [place] 06/02/2020 12:35
== END ==
PROVIDERS: PCP Family Medicine; Visit Provider Orthopaedic Surgery
DX: M25.512 Pain in left shoulder (principal)
CPT/HCPCS: 73030

== ENCOUNTER → 2020-07-04 09:34 | Outpatient (CLI) | payer MEDICARE, SELFPAY ==
--- NOTE | 2020-07-04 09:37 | XR_ITS ---
PROCEDURE: XR KNEE LT 4V CLINICAL INDICATION: left knee pain COMPARISON: DX Left Knee from 05/08/2020 DX Left Knee from 06/20/2020 FINDINGS: No fracture or dislocation. No lytic or blastic change. There is normal mineralization. There are moderate osteoarthritic changes of the medial compartment with mild osteoarthritis of the patellofemoral joint and lateral compartment. There is a faint curvilinear lucency in the subcortical region of the right medial femoral condyle which could be due to osteo chondritis dissecans. There is some sclerosis of the cortex at this region as well. Surgical clips are present at the medial aspect of the knee. There is a small suprapatellar effusion. Generalized vascular calcification is noted. Other findings:There is chondrocalcinosis of the lateral meniscus. 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
== END ==
PROVIDERS: PCP Family Medicine; Visit Provider Orthopaedic Surgery
DX: M25.562 Pain in left knee (principal)
CPT/HCPCS: 73564

== ENCOUNTER 2020-08-28 13:24 | Observation (INO) | payer MEDICARE, SELFPAY ==
[2020-08-28] VITALS (11 sets, daily range): BP systolic 92–126; BP diastolic 56–83; PULSE 68–88; RESP 14–26; TEMP 36.6–36.8; O2SAT 92–97; BMI 31.3; BMI 31.8; BMI 34.2
--- NOTE | 2020-08-28 13:18 | ECG_ITS ---
APPROVED REPORT Exam: Resting ECG HR:70 bpm ECG Measurements Heart Rate 70 AXES FL 222 P 58 QRSd 98 QRS 33 QT 408 T 269 QTc 440 Conclusion Electronic atrial pacemaker ST/TW changes unchanged from prior tracings Abnormal ECG Electronically signed by : Shay Oro, 08/29/2020 08:04:21
--- NOTE | 2020-08-28 13:27 | XR_ITS ---
PROCEDURE: XR CHEST PORTABLE CLINICAL HISTORY: chest pain COMPARISON: CR XR CHEST PORTABLE from 03/21/2020 CR XR CHEST PORTABLE from 04/15/2020 CR XR CHEST 2V from 05/02/2020 FINDINGS: There is a bipolar pacemaker present from left subclavian approach. There is borderline cardiomegaly without failure. There has been a prior CABG. There is fracture of the superior most median sternotomy wire. There are mild atelectatic changes in the left lung base. The remaining lungs are clear. No acute bony abnormalities. IMPRESSION: Postsurgical changes with pacemaker present. Mild left basilar atelectasis otherwise negative Dictated by: Mike Mora MD 08/28/2020 13:53 Mike Mora MD in [place] 08/28/2020 13:53
--- NOTE | 2020-08-28 13:39 | HMH.EDGENADL ---
ED Disposition Clinical Impression: Hypokalemia Chest pain Qualifiers: Chest pain type: unspecified Qualified Code(s): R07.9 - Chest pain, unspecified Disposition: Admitted as Observation Condition on Discharge: Fair - Critical Care Critical Care Time: No Attestation: On , the high probability of a clinically significant, sudden or life threatening deterioration of the following system(s) required my full and direct attention, intervention and personal management. The time I documented below is in addition to time spent performing reported procedures but includes the following listed in this critical care notation. Medical Decision Making - Medical Records Medical records reviewed: Yes: I reviewed the patient's medical records. MR Comment: Reviewed 05/20/2020 cardiology consult regarding heart cath and CardioMEMS. - Gabe Inquiry Pt receiving controlled substance: No Vital Signs: 08/28/20 13:25 08/28/20 13:55 08/28/20 14:28 Temperature 98.2 F Temperature Source Oral Pulse Rate [Radial] 70 70 70 Respiratory Rate 26 H Blood Pressure [Right Arm] 110/61 109/70 L 108/59 L Blood Pressure Mean [Right Arm] 77 83 75 Blood Pressure Source [Right Arm] Automatic Cuff Automatic Cuff Blood Pressure Position [Right Arm] Sitting Sitting Sitting 02 Sat by Pulse Oximetry 97 92 L 92 L Oxygen Delivery Method Room Air Room Air Room Air - Lab Data Lab results reviewed: Yes: I reviewed the patient's lab results. Lab Results 08/28/20 13:45: WBC 12.6 H, RBC 4.21 L, Hgb 11.6 L, Hct 39.7 L, MCV 94.1 H, MCH 27.5, MCHC 29.2 L, RDW 17.8 H, Plt Count 282, MPV 13.1 H, Neut % (Auto) 79.2, Lymph % (Auto) 13.6, [place] % (Auto) 5.2, Eos % (Auto) 1.4, Baso % (Auto) 0.7, Neut # (Auto) 9.9 H, Lymph # (Auto) 1.7, [place] # (Auto) 0.7, Eos # (Auto) 0.2, Baso # (Auto) 0.1 08/28/20 13:45: Sodium 138, Potassium 2.5 L*, Chloride 97 L, Carbon Dioxide 32 H, Anion Gap 11.5, BUN 16, Creatinine 1.20, Estimated Creat Clear 72, Estimated GFR 60, Est GFR ( Amer) 72, Glucose 210 H, Calcium 9.2, Troponin I 0.02 08/28/20 13:45: NT-Pro-B Natriuret Pep 455 H 08/28/20 13:45: SARS-CoV-2 IgG Ab (Rapid) Negative, SARS-CoV-2 IgM Ab (Rapid) Negative Result diagrams: 08/28/20 13:45 08/28/20 13:45 Orders (Tests/Meds): ED MEDICATIONS Generic Name Dose Route Start Last Admin Trade Name Freq PRN Reason Stop Dose Admin Nitroglycerin 1 gm 08/28/20 14:00 08/28/20 13:53 Nitroglycerin 1 Gm Ointment TD 09/27/20 13:59 1 gm Q8H CARLEEN Administration Discontinued Medications Generic Name Dose Route Start Last Admin Trade Name Freq PRN Reason Stop Dose Admin Morphine Sulfate 4 mg 08/28/20 13:48 08/28/20 13:53 Morphine 4mg/Ml Syringe IV 08/28/20 13:49 4 mg ONCE ONE Administration Ondansetron HCl 4 mg 08/28/20 13:48 08/28/20 13:53 Ondansetron 4mg/2ml Vial IV 08/28/20 13:49 4 mg ONCE ONE Administration Potassium Chloride 40 meq 08/28/20 14:12 08/28/20 14:14 Potassium Chloride 20meq Tab PO 08/28/20 14:13 40 meq ONCE ONE Administration ORDERS Category Date Time Status Troponin I Q3H Lab 08/28/20 16:30 Ordered Troponin I Q3H Lab 08/28/20 19:30 Ordered - Radiology Data #1 Image(s): Chest Image Reviewed: Yes I have reviewed radiologist's interpretation PROCEDURE: XR CHEST PORTABLE CLINICAL HISTORY: chest pain COMPARISON: CR XR CHEST PORTABLE from 03/21/2020 CR XR CHEST PORTABLE from 04/15/2020 CR XR CHEST 2V from 05/02/2020 FINDINGS: There is a bipolar pacemaker present from left subclavian approach. There is borderline cardiomegaly without failure. There has been a prior CABG. There is fracture of the superior most median sternotomy wire. There are mild atelectatic changes in the left lung base. The remaining lungs are clear. No acute bony abnormalities. IMPRESSION: Postsurgical changes with pacemaker present. Mild left basilar atelectasis otherwise negative
[2020-08-28 13:59] LABS: Basophils # 0.1 K/mm3 (0-0.2); Basophils % 0.7 % (0.1-2.0); Eosinophils # 0.2 K/mm3 (0.0-0.4); Eosinophils % 1.4 % (0.1-12.0); Hematocrit 39.7 % (42.0-52.0); Hemoglobin 11.6 g/dL (14.1-18.0); Lymphocytes # 1.7 K/mm3 (0.7-4.5); Lymphocytes % 13.6 % (10-50); Mean Corpuscular HGB Conc 29.2 g/dL (31.8-35.4); Mean Corpuscular Hemoglobin 27.5 pg (27.0-31.2); Mean Corpuscular Volume 94.1 fl (80-94); Mean Platelet Volume 13.1 fl (7.4-10.4); Monocytes # 0.7 K/mm3 (0.1-1.0); Monocytes % 5.2 % (1.7-9.3); Neutrophils # 9.9 K/mm3 (1.8-7.8); Neutrophils % 79.2 % (37.0-80.0); Platelet Count 282 K/mm3 (142-424); Red Blood Count 4.21 M/mm3 (4.60-6.20); Red Cell Distribution Width 17.8 % (11.5-17.5); White Blood Count 12.6 K/mm3 (4.8-10.8)
--- NOTE | 2020-08-28 14:00 | PC.NURSE ---
pt and family updated on plan of care
[2020-08-28 14:05] LABS: Chloride 97 mmol/L (98-107); Sodium 138 mmol/L (136-145)
[2020-08-28 14:07] LABS: Potassium 2.5 mmoL/L (3.5-5.1)
[2020-08-28 14:09] LABS: Anion Gap 11.5 mEq/L (5-15); Blood Urea Nitrogen 16 mg/dl (9-20); Calcium 9.2 mg/dl (8.4-10.2); Carbon Dioxide 32 mmol/L (22.0-30.0); Creatinine Clearance Estimated 72 mL/min (50-200); Estimated Glomerular Filt Rate 60 ml/min (>60); GFR (African American) 72 ML/MIN (>60); Glucose 210 mg/dl (74-100)
[2020-08-28 14:18] LABS: NT Pro Brain Natriuretic Pep. 455 pg/mL (0-125)
[2020-08-28 14:22] LABS: Troponin I 0.02 ng/ml (0.00-0.034)
[2020-08-28 14:26] LABS: Coronavirus 19 IgG Antibody Negative (Negative); Coronavirus 19 IgM Antibody Negative (Negative)
--- NOTE | 2020-08-28 14:28 | PC.NURSE ---
Dr Dale paged.
--- NOTE | 2020-08-28 15:10 | P.CONPHA_ITS ---
[facility] Pharmacy VTE Monitoring - Patient Demographics Admission date: 08/28/20 Report Date: 08/28/20 Time: 15:10 Allergies/Adverse Reactions: Patient Allergies Iodinated Contrast Media [Iodinated Contrast Media - Oral and] Allergy (Severe, Verified 07/16/20 15:25) Anaphylaxis iodine Allergy (Mild, Verified 07/16/20 15:25) Height: 1.7 m Weight: 90.718 kg Patient Problems: Current Active Problems Hypokalemia (Acute) Chest pain (Chronic) - VTE Risk Labs: VTE Related Lab Results Hgb 11.6 g/dL (14.1-18.0) L 08/28/20 13:45 Hct 39.7 % (42.0-52.0) L 08/28/20 13:45 Plt Count 282 K/mm3 (142-424) 08/28/20 13:45 BUN 16 mg/dl (9-20) 08/28/20 13:45 Creatinine 1.20 mg/dl (0.66-1.25) 08/28/20 13:45 Estimated Creat Clear 72 mL/min (50-200) 08/28/20 13:45 - Prophylaxis VTE Prophylaxis Ordered?: Yes Types of VTE Prophylaxis: Pharmacological Pharmacologic Type: Other (XARELTO)
--- NOTE | 2020-08-28 15:10 | HMH.PHAINT ---
Medication reconciliation completed using pharmacy claims data.
--- NOTE | 2020-08-28 16:48 | HMH.HP ---
*Admission Date: 08/28/20 <Constanza Heath - 08/28/20 16:57> *Chief complaint: chest pain <IvanaConstanza - 08/28/20 16:57> *History of present illness: Mr Herring is a 70yo male who presented to the ER with chest pain and shortness of breath for 3 days. He said it is escalating in a crescendo fashion. It lasts anywhere from a few minutes to hours. Currently he has chest pain that started at 9 AM this morning. He says he has severe coronary artery disease and his current pain is the same that he has had from cardiac ischemia in the past. He has taken 2 nitroglycerin today which had given him temporary relief only. He has a prior history of coronary disease and DE, coronary bypass surgery, 30 cardiac stents, the most recent a couple of years ago. He saw his primary care doctor today who called Dr. Dale, his import/export freight forwarder, who advised him to come to the emergency department for evaluation. He sees Dr. Dale. He was recently admitted for heart cath and CardioMEMS procedure, but it was canceled due to the inflammation in his left leg. The patient has a history of severe anaphylactic reaction to intravenous contrast. He says whenever he gets a cardiac cath anesthesiology is present and puts him under anesthesia and administers epinephrine along with his contrast media. He says he still reacts under those circumstances and that is why he has been hesitant to have another cath and pulmonary artery implant. No troponin, No cath . He has chronic inflammation and edema of his left leg that has been going on for more than 6 months. He has been checked for DVTs. He has seen orthopedics. He says it is about half the size that it had been a couple of months ago but is still inflamed. (the above as per the ER physician) He was admitted to r/o and DE. <Constanza Heath - 08/28/20 16:57> [facility] History I have reviewed the patient's past medical history: Yes <Constanza Heath - 08/28/20 16:57> Medical History: Reports:: Anxiety, Arrhythmia, Atherosclerotic Heart Disease, Atrial Fibrillation, Cancer, Cardiomyopathy, Congestive Heart Failure, Coronary Artery Disease, Hyperlipidemia, Hypertension, Internal Pacemaker, Myocardial Infarction, Palpitations, Renal Disease Denies:: Diabetes Mellitus Type 1, Diabetes Mellitus Type 2, MRSA <Constanza Heath 08/28/20 16:57> *Have you ever received a pneumonia vaccine?: Yes <Constanza Heath 08/28/20 16:57> *Have you received a flu vaccine this season?: Yes <Constanza Heath 08/28/20 16:57> Other Medical History: Reports: Arthritis. Denies: Hypothyroidism <Constanza Heath 08/28/20 16:57> Laterality Cases: Right: Arthroscopy Knee, Bilateral: Tonsillectomy, Other <Constanza Heath 08/28/20 16:57> Other Surgeries: Yes: Angioplasty, Appendectomy, CABG, Cardiac Catheterization, Colonoscopy, EGD, Hernia Repair, Pacemaker, Other (knee replacement, wrist replacement, achilles tendon repair right side) <Constanza Heath 08/28/20 16:57> Amputation: No <Constanza Heath 08/28/20 16:57> Fractures: Yes (ORIF of wrist and ankle) <Constanza Heath 08/28/20 16:57> - *Social History Last grade of school completed: Advanced degree <Constanza Heath 08/28/20 16:57> Smoking Status: Never smoker <Constanza Heath 08/28/20 16:57> Tobacco Type: cigarettes <Constanza Heath 08/28/20 16:57> # Packs/Day (cigarettes): 10 <Constanza Heath 08/28/20 16:57> Alcohol Intake: never <Constanza Heath 08/28/20 16:57> Substance Use Type: denies use <Constanza Heath 08/28/20 16:57> *Occupational Status:: retired <Constanza Heath 08/28/20 16:57> Housing: house <Constanza Heath 08/28/20 16:57> Household Members: spouse <Constanza Heath 08/28/20 16:57> *Travel in the last 8 weeks: None <Constanza Heath 08/28/20 16:57> - Psychiatric History Pschychiatric History:: Reports:: Anxiety <Constanza Heath 08/28/20 16:57> Family Hx:: Cancer, Heart Attack <Constanza Heath - 08/28/20 16:57> Review of Systems - Constitutional Reports weakness, De
--- NOTE | 2020-08-28 17:30 | PC.NURSE ---
Patient was brought in with angina. Patient is alert and oriented. Nitro paste in place. Told that his chest pain was severe so pain medication dose was increased to q2 hours, milligram dosage was decreased to 3. Patients appetite is excellent, no n/v/d since being brought to room from ER. Voiding per urinal. Left lower extremity is red and swollen with +2 pitting edema, pulses are also +2, marked pulses on both feet. Patinet states that he has significant pain in his leg. Patient is on 2l nc per his request. Hemodynamically stable, on tele. Patient is made npo after midnight. Consult to cardiology. Will continue to monitor patient.
[2020-08-28 17:35] LABS: Troponin I 0.01 ng/ml (0.00-0.034)
--- NOTE | 2020-08-28 18:39 | PC.NURSE ---
Patient was brought in with angina. Patient is alert and oriented. Nitro paste in place. Told that his pain was severe so pain medication dose was increased to q2 hours, milligram dosage was decreased to 3. Patients appetite is excellent, no n/v/d since being brought to room from ER. Voiding per urinal. Left lower extremity is red and swollen with +2 pitting edema, pulses are also +2, marked pulses on both feet. Patinet states that he has significant pain in his leg. Patient is on 2l nc per his request. Hemodynamically stable, on tele. Patient is made npo after midnight. Consult to cardiology. Will continue to monitor patient.
--- NOTE | 2020-08-28 19:47 | ECG_ITS ---
APPROVED REPORT Exam: Resting ECG HR:70 bpm ECG Measurements Heart Rate 70 AXES [place] 150 P 10 QRSd 100 QRS -10 QT 444 T 119 QTc 479 Conclusion AV sequential or dual chamber electronic pacemaker Electronically signed by : Shay Oro, 08/30/2020 10:35:23
[2020-08-28 20:36] LABS: Troponin I < 0.01 ng/ml (0.00-0.034)
[2020-08-29] VITALS: BP 117/80; PULSE 70; PULSE 72; RESP 18; TEMP 37; O2SAT 92
[2020-08-29 04:00] VITALS: BP 104/68; PULSE 70; PULSE 80; RESP 20; TEMP 37.3; O2SAT 92
[2020-08-29 05:00] VITALS: BMI 34.2
[2020-08-29 06:34] LABS: Basophils # 0.1 K/mm3 (0-0.2); Basophils % 0.4 % (0.1-2.0); Eosinophils # 0.2 K/mm3 (0.0-0.4); Eosinophils % 1.6 % (0.1-12.0); Hematocrit 34.6 % (42.0-52.0); Hemoglobin 10.8 g/dL (14.1-18.0); Lymphocytes # 1.2 K/mm3 (0.7-4.5); Lymphocytes % 9.9 % (10-50); Mean Corpuscular HGB Conc 31.2 g/dL (31.8-35.4); Mean Corpuscular Hemoglobin 26.4 pg (27.0-31.2); Mean Corpuscular Volume 84.8 fl (80-94); Mean Platelet Volume 8.1 fl (7.4-10.4); Monocytes # 0.7 K/mm3 (0.1-1.0); Monocytes % 5.5 % (1.7-9.3); Neutrophils # 10.1 K/mm3 (1.8-7.8); Neutrophils % 82.5 % (37.0-80.0); Platelet Count 264 K/mm3 (142-424); Red Blood Count 4.08 M/mm3 (4.60-6.20); Red Cell Distribution Width 14.9 % (11.5-17.5); White Blood Count 12.3 K/mm3 (4.8-10.8)
[2020-08-29 06:40] LABS: Chloride 98 mmol/L (98-107)
[2020-08-29 06:41] LABS: Potassium 3.6 mmoL/L (3.5-5.1); Sodium 140 mmol/L (136-145)
[2020-08-29 06:44] LABS: Anion Gap 8.6 mEq/L (5-15); Blood Urea Nitrogen 17 mg/dl (9-20); Carbon Dioxide 37 mmol/L (22.0-30.0); Creatinine Clearance Estimated 86 mL/min (50-200); Estimated Glomerular Filt Rate 66 ml/min (>60); GFR (African American) 80 ML/MIN (>60); Glucose 190 mg/dl (74-100)
[2020-08-29 08:00] VITALS: BP 107/58; PULSE 69; RESP 20; TEMP 36.7; O2SAT 92
--- NOTE | 2020-08-29 08:45 | PC.NURSE ---
Late Entry: At change of shift (1929), pt called out c/o chest pain. This RN proceeded to pt's room were he c/o 12/10 on heading and priming tool setter pain to left chest, shoulder and up the left side of neck . Pt also c/o nausea and retching in room. No productive emesis occurred. Pt also c/o SOA and felt smothered . BP 126/83, HR 88 (paced on tele), RR 14, SaO2 95% on 2LPM NC, T 97.8 oral. Pt given 2x doses of Nitro SL, Morphine 3mg IVP 1x, and Zofran 4mg IVP x1. EKG was obtained immediately and taken to ER where Dr. Cabrales read as no changes compared to initial EKG. Pt requested to see EKGs. Pt's nausea was relieved. by 1999 pt was still c/o chest pain. But appeared more relieved and now requesting I thought someone was going to rustle me up a chicken salad sandwich . Pt continues to report SOA, RR 15 and HR 72 and continues to be paced on tele. 3rd troponin <0.01. 2004: Dr. Wyatt was notified of this event. No new order. 2030: Pt given night time meds and sleep aid as requested. Still c/o chest pain but not up left neck. SOA is better. Pt eating PB & crackers and fresh pepsi. 2100: Pt sleeping quietly and rested until ~0000 Pt received total of 9mg of morphine this shift. Pt appears to rest well or is asleep on reassessment. Clear anterior lungs, diminished bases and continued pt on 2LPM NC. wo any further c/o of SOA. Redness to Left anterior calf noted. Non-pitting edema. Pt denies any pain to calf, only surrounding left knee. 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
--- NOTE | 2020-08-29 08:57 | HMH.ACPN2 ---
<Constanza Heath - Last Filed: 08/29/20 08:57> Internal Medicine - PN: Subj *Date: 08/29/20 *Time: 08:57 Interval history: Patient states his pain is improved today. His enzymes have all been negative. He states he was able to rest some last night and is hungry this morning. Exam Vital signs and Labs for Last 24 Hours: Temp Pulse Resp BP Pulse Ox 98.1 F 69 20 107/58 L 92 L 08/29/20 08:00 08/29/20 08:00 08/29/20 08:00 08/29/20 08:00 08/29/20 08:00 Laboratory Results - last 24 hr 08/28/20 13:45: WBC 12.6 H, RBC 4.21 L, Hgb 11.6 L, Hct 39.7 L, MCV 94.1 H, MCH 27.5, MCHC 29.2 L, RDW 17.8 H, Plt Count 282, MPV 13.1 H, Neut % (Auto) 79.2, Lymph % (Auto) 13.6, [place] % (Auto) 5.2, Eos % (Auto) 1.4, Baso % (Auto) 0.7, Neut # (Auto) 9.9 H, Lymph # (Auto) 1.7, [place] # (Auto) 0.7, Eos # (Auto) 0.2, Baso # (Auto) 0.1 08/28/20 13:45: Sodium 138, Potassium 2.5 L*, Chloride 97 L, Carbon Dioxide 32 H, Anion Gap 11.5, BUN 16, Creatinine 1.20, Estimated Creat Clear 72, Estimated GFR 60, Est GFR ( Amer) 72, Glucose 210 H, Calcium 9.2, Troponin I 0.02 08/28/20 13:45: NT-Pro-B Natriuret Pep 455 H 08/28/20 13:45: SARS-CoV-2 IgG Ab (Rapid) Negative, SARS-CoV-2 IgM Ab (Rapid) Negative 08/28/20 17:00: Troponin I 0.01 08/28/20 19:40: Troponin I < 0.01 08/29/20 06:03: Sodium 140, Potassium 3.6 D, Chloride 98, Carbon Dioxide 37 H, Anion Gap 8.6, BUN 17, Creatinine 1.10, Estimated Creat Clear 86, Estimated GFR 66, Est GFR ( Amer) 80, Glucose 190 H, Calcium 9.0 08/29/20 06:03: WBC 12.3 H, RBC 4.08 L, Hgb 10.8 L, Hct 34.6 L, MCV 84.8, MCH 26.4 L, MCHC 31.2 L, RDW 14.9, Plt Count 264, MPV 8.1, Neut % (Auto) 82.5 H, Lymph % (Auto) 9.9 L, [place] % (Auto) 5.5, Eos % (Auto) 1.6, Baso % (Auto) 0.4, Neut # (Auto) 10.1 H, Lymph # (Auto) 1.2, [place] # (Auto) 0.7, Eos # (Auto) 0.2, Baso # (Auto) 0.1 I & O for Last 24 hours: Intake & Output 08/26/20 08/27/20 08/28/20 08/29/20 11:59 11:59 11:59 11:59 Intake Total 480 / 480 Balance 480 / 480 Weight 218 lb 2 oz - Constitutional no acute distress - *Routine Respiratory Exam Present: CTA bilaterally - *Routine Cardiovascular Exam Present: RRR - *Routine Abdominal Exam Present: soft, normoactive bowel sounds. Absent: tenderness - *Routine Extremities Exam Absent: cyanosis, clubbing, edema Comments: Erythema of the lower two thirds of his lower leg with pitting edema, 2+ of the left leg, tenderness of entire lower leg with erythema). - *Routine Neurological Exam Present: alert, oriented X3 Assessment and Plan (1) Chest pain Status: Chronic Qualifiers: Chest pain type: unspecified Qualified Code(s): R07.9 - Chest pain, unspecified Category: Medical Code(s): R07.9 - Chest pain, unspecified (2) Hypokalemia Status: Acute Category: Medical Code(s): E87.6 - Hypokalemia (3) Cellulitis of left lower extremity without foot Status: Acute Category: Medical Code(s): L03.116 - Cellulitis of left lower limb (4) Cardiomyopathy Status: Chronic Qualifiers: Cardiomyopathy type: unspecified Qualified Code(s): I42.9 - Cardiomyopathy, unspecified Category: Medical Code(s): I42.9 - Cardiomyopathy, unspecified (5) Allergy to imaging contrast media Status: Chronic Category: Medical Code(s): Z91.041 - Radiographic dye allergy status (6) Benign essential hypertension Status: Chronic Category: Medical Code(s): I10 - Essential (primary) hypertension (7) Cardiac pacemaker in situ Status: Chronic Category: Medical Code(s): Z95.0 - Presence of cardiac pacemaker (8) Chronic systolic heart failure Status: Chronic Category: Medical Code(s): I50.22 - Chronic systolic (congestive) heart failure (9) Coronary arteriosclerosis Status: Chronic Category: Medical Code(s): I25.10 - Atherosclerotic heart disease of [place] coronary artery without angina pectoris (10) History of coronary artery bypass graft Status:
--- NOTE | 2020-08-29 10:55 | HMH.CNCARD ---
History of Present Illness Consult date: 08/29/20 Requesting physician: Ramón Wyatt Consult reason: chest pain Chief complaint: chest pain Additional Medical History:: 1. Coronary artery disease and cardiomyopathy A. History of 5 vessel coronary bypass grafting, 1998 B. History of 20 coronary stents placed C. Cardiomyopathy with ejection fraction reportedly at about 43% per patient. D. Echocardiogram x2, 09/2018 both showing ejection fraction in the 50-60% range. E. R and L heart cath, 12/2016, [facility], Dr. Dale, showing- stenting distal dominant RCA and to the posterior descending artery, Cardiomyopathy with EF 10% ,severely elevated LVEDP and left sided filling pressures, moderate to severe pulmonary HTN 2. History of paroxysmal atrial fibrillation A. On Xarelto anticoagulation B. BRYCE/Cardioversion, , 2016 C. Amiodarone therapy stopped 07/2017 3. Permanent pacemaker placement 4. Hypertension A. Echo, 03/2020, 1. Mildly enlarged left atrium, normal left ventricular size, mild concentric left ventricular hypertrophy visually estimated ejection fraction 55% with no regional wall motion abnormality. Grade 1 diastolic dysfunction seen without tissue Doppler evidence of raise left atrial pressure. 2. Mild aortic, mild mitral and tricuspid regurgitation. 3. No significant pericardial effusion noted 5. Hyperlipidemia 6. Infrarenal Abdominal aortic aneurysm, 3.6 X 3.5 cm, 09/2018 7. Chronic kidney disease, stage II 8. Ex-smoker 9. TRUE ANAPHYLACTIC REACTION TO IV CONTRAST 10. Severe pulmonary hypertension A. Right heart catheterization, 05/01/2020, ANGIOGRAPHIC RESULTS Right atrial pressure 8 mmHg Pulmonary artery pressure 52/28 mmHg Artery occlusion pressure 26 mmHg Right atrial saturation 60% Pulmonary artery saturation 62% IMPRESSION Severe pulmonary hypertension secondary to decompensated left-sided congestive heart failure PLAN 1. Patient requires better diuresis 2. I recommend decreasing patient's body weight by at least 5 pounds and then consider repeating right heart cath based on symptoms 3. Consider cardio Mem if it is possible to deploy this without using IV contrast 11. Esophageal stricture with food impaction, 04/2020 A. EGD, Dr. Dc Thomas, 04/2020, 1. Esophageal food impaction status post removal, biopsies and balloon dilation 2. Distal esophageal stricture with ulcerative esophagitis (rule out reflux esophagitis versus pill induced esophagitis with stricturing) 3. Small hiatal hernia 12. Atypical chest pain (08/29/2020) History of present illness: 70-year-old male presented to ED last evening with atypical chest pain. Patient stated for the past 3 days he has been having some midsternal chest pain radiating to the neck and to the bilateral arms. Patient stated he was unable to walk due to the shortness of breath and chest pain he was having. Patient stated that the chest pain does ease up at times with rest. Patient stated the pain has been at 12 out of 10 on the pain scale. Patient stated that he has been dizzy when upright. Patient noted with swelling of the left lower extremity. Patient stated for the past few days he has had gout in the left great toe. Patient does have redness of the left lower extremity. Patient is up in chair. Pt does have history of Coronary Artery disease and cadiomyopathy. Last echo was 03/2020 which revealed an EF of 55% with no regional wall abnormality mild AR mild MR and mild TR. Patient does have a history of CABG x5. Patient has history of paroxysmal atrial fibrillation and is on Xarelto daily. Patient does have a permanent pacemaker. Patient does have a history of infrarenal abdominal aortic aneurysm measuring 3.6 x 3.5 cm (09/2018). Patient did undergo right heart cath (04/2020) which revealed severe pulmonary hypertension secondary to decompensated left-sided congestive heart failu
--- NOTE | 2020-08-29 12:46 | HMH.DCSUM ---
General - General Admission date:: 08/28/20 <Ramón Wyatt - 08/29/20 15:21> 08/28/20 <Constanza Heath - 08/29/20 12:49> Discharge date: 08/29/20 <Constanza Heath - 08/29/20 12:49> HPI HPI: Mr Herring is a 70yo male who presented to the ER with chest pain and shortness of breath for 3 days. He said it is escalating in a crescendo fashion. It lasts anywhere from a few minutes to hours. Currently he has chest pain that started at 9 AM this morning. He says he has severe coronary artery disease and his current pain is the same that he has had from cardiac ischemia in the past. He has taken 2 nitroglycerin today which had given him temporary relief only. He has a prior history of coronary disease and AL, coronary bypass surgery, 30 cardiac stents, the most recent a couple of years ago. He saw his primary care doctor today who called Dr. Dale, his rolls baker, who advised him to come to the emergency department for evaluation. He sees Dr. Dale. He was recently admitted for heart cath and CardioMEMS procedure, but it was canceled due to the inflammation in his left leg. The patient has a history of severe anaphylactic reaction to intravenous contrast. He says whenever he gets a cardiac cath anesthesiology is present and puts him under anesthesia and administers epinephrine along with his contrast media. He says he still reacts under those circumstances and that is why he has been hesitant to have another cath and pulmonary artery implant. No troponin, No cath . He has chronic inflammation and edema of his left leg that has been going on for more than 6 months. He has been checked for DVTs. He has seen orthopedics. He says it is about half the size that it had been a couple of months ago but is still inflamed. (the above as per the ER physician) He was admitted to r/o and AL. <Constanza Heath - 08/29/20 12:49> Hospital Course Hospital Course: The patient was admitted to rule out an AL. His chest x-ray showed nothing acute. His troponins were all normal. He was started on some potassium due to hypokalemia. The patient's left lower extremity was swollen and erythematous, but he stated he had chronic lymphedema of that extremity, therefore no antibiotics were started. His chest pain did improve. Cardiology felt he was stable for discharge with no strenuous activity and he will need to follow-up in their office in 1 week. <IvanaConstanza - 08/29/20 12:49> Objective Vital signs: Temp Pulse Resp BP Pulse Ox 98.1 F 69 20 107/58 L 92 L 08/29/20 08:00 08/29/20 08:00 08/29/20 08:00 08/29/20 08:00 08/29/20 08:00 <Ramón Wyatt - 08/29/20 15:21> Temp Pulse Resp BP Pulse Ox 98.1 F 69 20 107/58 L 92 L 08/29/20 08:00 08/29/20 08:00 08/29/20 08:00 08/29/20 08:00 08/29/20 08:00 <Constanza Heath - 08/29/20 12:49> Narrative: - Constitutional no acute distress - *Routine Respiratory Exam Present: CTA bilaterally - *Routine Cardiovascular Exam Present: RRR - *Routine Abdominal Exam Present: soft, normoactive bowel sounds. Absent: tenderness - *Routine Extremities Exam Absent: cyanosis, clubbing, edema Comments: Erythema of the lower two thirds of his lower leg with pitting edema, 2+ of the left leg, tenderness of entire lower leg with erythema). - *Routine Neurological Exam Present: alert, oriented X3 <IvanaConstanza - 08/29/20 12:49> Results Labs on day of discharge: Labs from last 24 hours 08/29/20 08/29/20 08/28/20 06:03 06:03 19:40 WBC 12.3 H RBC 4.08 L Hgb 10.8 L Hct 34.6 L MCV 84.8 MCH 26.4 L MCHC 31.2 L RDW 14.9 Plt Count 264 MPV 8.1 Neut % (Auto) 82.5 H Lymph % (Auto) 9.9 L [place] % (Auto) 5.5 Eos % (Auto) 1.6 Baso % (Auto) 0.4 Neut # (Auto) 10.1 H Lymph # (Auto) 1.2 [place] # (Auto) 0.7 Eos # (Auto) 0.2 Baso # (Auto) 0.1 Sodium 140 Potassium
== END 2020-08-29 11:15 | disposition home or self-care (01) ==
LOC: ER 14:42 → 2ND 14:50
PROVIDERS: Admitting Provider Family Medicine; Emergency Provider Emergency Medicine; PCP Family Medicine; Visit Provider Family Medicine
DX: R07.9 Chest pain, unspecified (principal); I25.10 Atherosclerotic heart disease of native coronary artery without angina pectoris; Z95.1 Presence of aortocoronary bypass graft; Z95.5 Presence of coronary angioplasty implant and graft; E87.6 Hypokalemia; I50.22 Chronic systolic (congestive) heart failure; I13.0 Hypertensive heart and chronic kidney disease with heart failure and stage 1 through stage 4 chronic kidney disease, or unspecified chronic kidney disease; N18.2 Chronic kidney disease, stage 2 (mild); Z79.01 Long term (current) use of anticoagulants; I48.91 Unspecified atrial fibrillation; E03.9 Hypothyroidism, unspecified; Z95.0 Presence of cardiac pacemaker; Z91.041 Radiographic dye allergy status; I27.20 Pulmonary hypertension, unspecified; L03.116 Cellulitis of left lower limb; Z79.899 Other long term (current) drug therapy
CPT/HCPCS: 36415; 71045; 80048; 83880; 84484; 85025; 86328; 93005; 94761; 96374; 96375; 96376; 99284; G0378; J2405

== ENCOUNTER 2021-01-11 16:30 | Emergency (ER) | payer MEDICARE, SELFPAY ==
[2021-01-11] VITALS (7 sets, daily range): BP systolic 114–143; BP diastolic 67–93; PULSE 68–73; RESP 18–20; TEMP 36.7–36.8; O2SAT 94–98; BMI 31.3
--- NOTE | 2021-01-11 16:40 | HMH.EDGENADL ---
ED Disposition Clinical Impression: Chest pain Qualifiers: Chest pain type: unspecified Qualified Code(s): R07.9 - Chest pain, unspecified Disposition: Home, Self-Care Condition on Discharge: Fair Instructions: DI for Chest Pain Additional Instructions: See Dr. Dale tomorrow morning as scheduled. Additional instructions for CHEST PAIN: Return immediately if worsening chest pain, vomiting, shortness of breath, fever, coughing of blood. Referrals: Chicho Claros [Primary Care Provider] - - Critical Care Critical Care Time: No Attestation: On , the high probability of a clinically significant, sudden or life threatening deterioration of the following system(s) required my full and direct attention, intervention and personal management. The time I documented below is in addition to time spent performing reported procedures but includes the following listed in this critical care notation. Medical Decision Making - Gabe Inquiry Pt receiving controlled substance: Yes Gabe was queried for this patient: Yes Risks and benefits of using a controlled substance: were not discussed with pt by me Vital Signs: 01/11/21 16:37 01/11/21 17:00 01/11/21 17:22 Temperature 98.0 F Temperature Source Oral Pulse Rate 73 68 Pulse Rate [Apical] 70 Respiratory Rate 20 18 18 Blood Pressure 131/75 132/80 Blood Pressure [Right Arm] 143/93 H Blood Pressure Mean 93 88 Blood Pressure Mean [Right Arm] 109 Blood Pressure Source [Right Arm] Automatic Cuff Blood Pressure Position [Right Arm] Sitting 02 Sat by Pulse Oximetry 94 L 96 98 Oxygen Delivery Method Room Air 01/11/21 17:31 01/11/21 18:00 01/11/21 18:30 Temperature Temperature Source Pulse Rate 71 72 73 Pulse Rate [Apical] Respiratory Rate 18 18 18 Blood Pressure 114/67 117/72 122/79 Blood Pressure [Right Arm] Blood Pressure Mean 96 99 101 Blood Pressure Mean [Right Arm] Blood Pressure Source [Right Arm] Blood Pressure Position [Right Arm] 02 Sat by Pulse Oximetry 97 96 96 Oxygen Delivery Method - Lab Data Lab Results 01/11/21 16:35: WBC 8.9, RBC 4.29 L, Hgb 10.2 L, Hct 35.5 L, MCV 82.6, MCH 23.7 L, MCHC 28.7 L, RDW 15.7, Plt Count 233, MPV 7.8, Neut % (Auto) 77.2, Lymph % (Auto) 14.2, [place] % (Auto) 4.2, Eos % (Auto) 3.6, Baso % (Auto) 0.8, Neut # (Auto) 6.9, Lymph # (Auto) 1.3, [place] # (Auto) 0.4, Eos # (Auto) 0.3, Baso # (Auto) 0.1 01/11/21 16:35: Sodium 140, Potassium 4.7, Chloride 105, Carbon Dioxide 27, Anion Gap 12.7, BUN 10, Creatinine 0.90, Estimated Creat Clear 87, Estimated GFR 83, Est GFR ( Amer) 101, Glucose 153 H, Calcium 8.9, Troponin I 0.01 01/11/21 18:51: Troponin I < 0.01 Result diagrams: 01/11/21 16:35 01/11/21 16:35 Orders (Tests/Meds): ED MEDICATIONS Generic Name Dose Route Start Last Admin Trade Name Freq PRN Reason Stop Dose Admin Morphine Sulfate 4 mg 01/11/21 17:13 Morphine 4mg/Ml Syringe IV 02/10/21 17:12 Q4HP PRN Chest Pain Discontinued Medications Generic Name Dose Route Start Last Admin Trade Name Freq PRN Reason Stop Dose Admin Morphine Sulfate 4 mg 01/11/21 17:16 01/11/21 17:18 Morphine 4mg/Ml Syringe IV 01/11/21 17:17 4 mg ONCE ONE Administration ORDERS Category Date Time Status XR chest portable Stat Exams 01/11/21 16:45 Taken Troponin I Q3H Lab 01/11/21 23:00 Ordered - Radiology Data #1 Image(s): Chest Image Reviewed: Yes I reviewed the patient's radiology image cardiomegaly, s/p sternotomy, pacemaker, NAD - ECG Data Tracing #1 EKG interpreted by Prem Cabrales MD: Rhythm: Electronic atrial pacemaker Rate: 71 [place]: normal Ectopy: none Conduction: normal ST Segment Changes: none T Wave Changes: Inferior lateral inversion, no change from prior Q Waves: none No evidence of acute ischemia or injury Prior electrocardiagrams reviewed. No change from prior tracings. - Physician Co
--- NOTE | 2021-01-11 16:45 | XR_ITS ---
PROCEDURE: XR CHEST PORTABLE CLINICAL HISTORY: chest pain COMPARISON: CR XR CHEST PORTABLE from 04/15/2020 CR XR CHEST 2V from 05/02/2020 CR XR CHEST PORTABLE from 08/28/2020 FINDINGS: Prior CABG. Bipolar pacemaker present from left subclavian approach. Cardiomegaly. There is fracture of the superior most median sternotomy wire. No evidence of CHF. The lungs are clear without infiltrates, suspicious nodules, or pleural effusions. Surgical clips in the left neck. No acute bony finding. IMPRESSION: Cardiomegaly otherwise negative Dictated by: Mike Mora MD 01/12/2021 06:25 Mike oMra MD in [place] 01/12/2021 06:25
--- NOTE | 2021-01-11 16:45 | ECG_ITS ---
APPROVED REPORT Exam: Resting ECG HR:71 bpm ECG Measurements Heart Rate 71 AXES CO 224 P 50 QRSd 86 QRS 26 QT 378 T 242 QTc 410 Conclusion Electronic atrial pacemaker Abnormal ECG Electronically signed by : Shay Oro, 01/12/2021 18:06:05
[2021-01-11 16:52] LABS: Chloride 105 mmol/L (98-107)
[2021-01-11 16:53] LABS: Basophils # 0.1 K/mm3 (0-0.2); Lymphocytes % 14.2 % (10-50); Monocytes # 0.4 K/mm3 (0.1-1.0); Potassium 4.7 mmoL/L (3.5-5.1); Red Cell Distribution Width 15.7 % (11.5-17.5); Sodium 140 mmol/L (136-145)
[2021-01-11 16:55] LABS: Blood Urea Nitrogen 10 mg/dl (9-20); Creatinine Clearance Estimated 87 mL/min (50-200); Estimated Glomerular Filt Rate 83 ml/min (>60); GFR (African American) 101 ML/MIN (>60)
--- NOTE | 2021-01-11 16:55 | PC.NURSE ---
contacted [facility] to request records on pt
[2021-01-11 16:56] LABS: Anion Gap 12.7 mEq/L (5-15); Calcium 8.9 mg/dl (8.4-10.2); Carbon Dioxide 27 mmol/L (22.0-30.0); Glucose 153 mg/dl (74-100)
[2021-01-11 16:57] LABS: Basophils % 0.8 % (0.1-2.0); Eosinophils # 0.3 K/mm3 (0.0-0.4); Eosinophils % 3.6 % (0.1-12.0); Hematocrit 35.5 % (42.0-52.0); Hemoglobin 10.2 g/dL (14.1-18.0); Lymphocytes # 1.3 K/mm3 (0.7-4.5); Mean Corpuscular HGB Conc 28.7 g/dL (31.8-35.4); Mean Corpuscular Hemoglobin 23.7 pg (27.0-31.2); Mean Corpuscular Volume 82.6 fl (80-94); Mean Platelet Volume 7.8 fl (7.4-10.4); Monocytes % 4.2 % (1.7-9.3); Neutrophils # 6.9 K/mm3 (1.8-7.8); Neutrophils % 77.2 % (37.0-80.0); Platelet Count 233 K/mm3 (142-424); Red Blood Count 4.29 M/mm3 (4.60-6.20); White Blood Count 8.9 K/mm3 (4.8-10.8)
[2021-01-11 17:09] LABS: Troponin I 0.01 ng/ml (0.00-0.034)
--- NOTE | 2021-01-11 17:12 | PC.NURSE ---
pt had nitro paste on chest upon arrival to ED. Pt did not know how long paste had been on him. Removed paste upon pts arrival to ED
--- NOTE | 2021-01-11 17:12 | PC.NURSE ---
MARILEE MICHELLE speaking with Dr. Dale
[2021-01-11 19:24] LABS: Troponin I < 0.01 ng/ml (0.00-0.034)
== END 2021-01-11 20:16 | disposition home or self-care (01) ==
PROVIDERS: Emergency Provider Emergency Medicine; PCP Family Medicine
DX: I20.8 Other forms of angina pectoris (principal); I25.10 Atherosclerotic heart disease of native coronary artery without angina pectoris; I10 Essential (primary) hypertension; I25.2 Old myocardial infarction; I48.91 Unspecified atrial fibrillation; I50.9 Heart failure, unspecified; Z79.899 Other long term (current) drug therapy
CPT/HCPCS: 71045; 80048; 84484; 85025; 93005; 96374; 99282

== ENCOUNTER → 2021-02-27 13:23 | Outpatient (CLI) | payer MEDICARE, SELFPAY ==
--- NOTE | 2021-02-27 13:29 | XR_ITS ---
PROCEDURE: XR KNEE LT 4V CLINICAL INDICATION: LT knee pain COMPARISON: DX Left Knee from 05/08/2020 DX Left Knee from 06/20/2020 CR XR KNEE LT 4V from 07/04/2020 FINDINGS: There are severe osteoarthritic changes of the medial compartment with loss of joint space and osteosclerosis. There is some cortical lobularity of the medial femoral condyle articular surface. There is mild osteoarthritis of the patellofemoral joint and lateral compartment. Mild varus angulation of the tibia No fracture or dislocation. There is generalized vascular calcification. Surgical clips are present along medial aspect of the knee distal thigh and proximal tibia area Other findings:None. IMPRESSION: Severe osteoarthritis of the medial compartment which is slightly progressed as described above. Dictated by: Mike Mora MD 02/27/2021 15:22 Mike Mora MD in [place] 02/27/2021 15:22
== END ==
PROVIDERS: PCP Family Medicine; Visit Provider Orthopaedic Surgery
DX: M25.562 Pain in left knee (principal)
CPT/HCPCS: 73564

== ENCOUNTER → 2021-03-03 13:46 | Outpatient (CLI) | payer MEDICARE, SELFPAY ==
[2021-03-03 13:48] LABS: Microscopic, Urine URINE MICROSCOPIC (MICROSCOPIC)
[2021-03-03 14:16] LABS: Appearance,Urine CLEAR (Clear); Bilirubin,Urine Negative (Negative); Blood, Urine Negative (Negative); Color,Urine YELLOW (Yellow); Glucose,Urine (UA) Negative (Negative); Ketones,Urine Negative (Negative); Leukocyte Esterase,Urine Negative (Negative); Nitrate,Urine Negative (Negative); Protein,Urine TRACE (Negative); Specific Gravity, Urine 1.025 (1.005-1.030)
[2021-03-03 14:23] LABS: Basophils # 0.1 K/mm3 (0-0.2); Basophils % 0.9 % (0.1-2.0); Eosinophils # 0.4 K/mm3 (0.0-0.4); Eosinophils % 4.6 % (0.1-12.0); Hematocrit 34.8 % (42.0-52.0); Hemoglobin 10.9 g/dL (14.1-18.0); Lymphocytes # 1.6 K/mm3 (0.7-4.5); Lymphocytes % 20.3 % (10-50); Mean Corpuscular HGB Conc 31.3 g/dL (31.8-35.4); Mean Corpuscular Hemoglobin 24.2 pg (27.0-31.2); Mean Corpuscular Volume 77.3 fl (80-94); Monocytes # 0.4 K/mm3 (0.1-1.0); Neutrophils # 5.4 K/mm3 (1.8-7.8); Neutrophils % 69.1 % (37.0-80.0); Platelet Count 253 K/mm3 (142-424); Red Cell Distribution Width 16.6 % (11.5-17.5); White Blood Count 7.8 K/mm3 (4.8-10.8)
[2021-03-03 14:27] LABS: Prothrombin Time 11.3 seconds (10.1-12.5)
[2021-03-03 14:38] LABS: INR 0.95 (0.9-1.1)
[2021-03-03 14:41] LABS: Chloride 105 mmol/L (98-107); Potassium 3.3 mmoL/L (3.5-5.1); Sodium 144 mmol/L (136-145)
[2021-03-03 14:43] LABS: Blood Urea Nitrogen 14 mg/dl (9-20); Estimated Glomerular Filt Rate 74 ml/min (>60); GFR (African American) 89 ML/MIN (>60)
[2021-03-03 14:44] LABS: Alanine Aminotransferase 16 U/L (12-78); Albumin Level 4.1 g/dl (3.5-5.0); Albumin/Globulin Ratio 1.4 (1.1-1.8); Alkaline Phosphatase 133 U/L (38-126); Anion Gap 15.3 mEq/L (5-15); Aspartate Amino Transferase 24 U/L (17-59); Bilirubin,Total 0.3 mg/dl (0.2-1.3); Calcium 9.1 mg/dl (8.4-10.2); Carbon Dioxide 27 mmol/L (22.0-30.0); Glucose 167 mg/dl (74-100); Total Protein,Serum 7.1 g/dl (6.3-8.2)
== END ==
PROVIDERS: Visit Provider Orthopaedic Surgery
DX: I42.9 Cardiomyopathy, unspecified (principal); I95.9 Hypotension, unspecified; Z01.818 Encounter for other preprocedural examination; E86.0 Dehydration; M25.562 Pain in left knee
CPT/HCPCS: 36415; 80053; 81001; 85025; 85610

== ENCOUNTER 2021-03-07 11:49 | Emergency (ER) | payer MEDICARE, SELFPAY ==
[2021-03-07 14:04] VITALS: BP 00/00; PULSE 0; RESP 0; TEMP -17.7; TEMP 0
== END 2021-03-07 14:10 | disposition home or self-care (01) ==
PROVIDERS: Emergency Provider Physician Assistant; PCP Family Medicine
DX: Z53.21 Procedure and treatment not carried out due to patient leaving prior to being seen by health care provider (principal)

== ENCOUNTER → 2021-03-07 12:10 | Outpatient (CLI) | payer MEDICARE, SELFPAY | PROVIDERS: PCP Internal Medicine Adolescent Medicine; Visit Provider Orthopaedic Surgery | DX: Z01.812 Encounter for preprocedural laboratory examination (principal); Z20.822 Contact with and (suspected) exposure to COVID-19; M25.562 Pain in left knee | CPT/HCPCS: U0003 ==

== ENCOUNTER 2021-03-09 08:44 | Observation (INO) | payer MEDICARE, SELFPAY ==
--- NOTE | 2021-03-02 11:32 | SW/DCPLANNER ---
Addendum entered by Violeta Gilbert 03/09/21 13:23: I will arrange outpatient PT for this patient at [facility]. I will follow up with [facility] ([facility]) once patient is ready for discharge. [facility] phone: [phone] fax: [phone] Original Note: CALLED PATIENTS PHONE NUMBER THIS MORNING AND ANSWERED... HE IS COMING IN FOR A TOTAL KNEE SURGERY ON MARCH 09... I DID MAKE CONTACT TO LET THEM KNOW (HE AND HIS ) I WOULD BE AVAILABLE TO ASSIST WITH ANY DISCHARGE PLANS THEY MAY HAVE.. I EXPLAINED TO THE THIS IS TYPICALLY AN OUT PATIENT PROCEDURE AND HE WILL STAY OVERNIGHT AND HAVE A PT EVALUATION AND THEN PENDING NO COMPLICATION COULD BE DISCHARGED WITH EITHER HOME HEALTH OR OUT PATIENT THERAPY... WILL SEE PATIENT WHEN HE HAS HIS SURGERY AND ASSIST WITH ANY NEEDS HE MAY HAVE....
[2021-03-04 13:31] VITALS: BMI 31.3
[2021-03-09] VITALS (20 sets, daily range): BP systolic 102–141; BP diastolic 57–88; PULSE 62–72; RESP 15–20; TEMP 36.4–37.7; O2SAT 88–100; BMI 33.6; BMI 35.2
--- NOTE | 2021-03-09 08:41 | P.PN_ITS ---
[facility] Anesthesia Checklist - Patient Identification Patient Identification: Arm Band - Structural Data Admitted From: Home Planned Operative Procedure/s: Left Total Knee Arthroplasty Consent for Planned Operative Procedure(s) Verified: Yes Verified Documents: Surgical Consent, History and Physical - NPO Status Verified Time NPO: 00:00 - Additional verifications Anesthesia Reactions: No Hx Blood Transfusions: No Blood Transfusion Reaction: No - Airway Assessment C-Spine Mobility Assessed: Yes (mp2) TMJ Mobility Assessed: Yes Dentition: Poor Dentition - Neurological Assessment Level of Consciousness: Awake, Alert, Appropriate - Anesthesia Plan Anesthesia Risk discussed: Yes Anesthesia Plan: Verified ASA Class: III Anesthesia Type: MAC w/Spinal (+ Adductor Canal Block. Risks/benefits of plan of care discussed with pt and pt verbalizes understanding) [facility] History I have reviewed the patient's past medical history: Yes Medical History: Reports:: Anxiety, Arrhythmia, Atherosclerotic Heart Disease, Atrial Fibrillation, Cancer (melanoma), Cardiomyopathy, Congestive Heart Failure, Coronary Artery Disease, Hyperlipidemia, Hypertension, Internal Pacemaker, Myocardial Infarction, Palpitations, Renal Disease Denies:: Diabetes Mellitus Type 1, Diabetes Mellitus Type 2, MRSA, Seizures *Have you ever received a pneumonia vaccine?: Yes (2019) *Have you received a flu vaccine this season?: Yes (2019) Other Medical History: Reports: Arthritis. Denies: Blood Transfusion Reaction, Hypothyroidism Anesthesia experience/problems:: nac Laterality Cases: Right: Arthroscopy Knee, Total Knee Replacement, Bilateral: Tonsillectomy, Other Other Surgeries: Yes: Angioplasty, Appendectomy, CABG, Cardiac Catheterization, Colonoscopy, EGD, Hernia Repair, Pacemaker, Other (knee replacement, wrist replacement, achilles tendon repair right side) Amputation: No Fractures: Yes (ORIF of wrist and ankle) - *Social History Last grade of school completed: Advanced degree Smoking Status: Never smoker Tobacco Type: cigarettes # Packs/Day (cigarettes): 10 Alcohol Intake: never Substance Use Type: denies use *Occupational Status:: retired Housing: house Household Members: spouse *Travel in the last 8 weeks: None - Psychiatric History Pschychiatric History:: Reports:: Anxiety Family Hx:: Cancer, Heart Attack
--- NOTE | 2021-03-09 08:54 | HMH.PHAINT ---
MEDICATION RECONCILIATION COMPLETED ON PATIENT USING EXTERNAL FILL HISTORY FROM PHARMACY AND LIST FROM CARDIOLOGY OFFICE. -YI CARMONAD
--- NOTE | 2021-03-09 11:42 | XR_ITS ---
PROCEDURE: XR KNEE LT 3V CLINICAL INDICATION: total knee Follow-up knee replacement COMPARISON: DX Left Knee from 05/08/2020 DX Left Knee from 06/20/2020 CR XR KNEE LT 4V from 07/04/2020 CR XR KNEE LT 4V from 02/27/2021 FINDINGS: Status post total knee replacement with good alignment of the prosthesis. There is postsurgical gas in the soft tissues and within the joint with an air-fluid level in the knee joint. Multiple surgical clips are present along the medial aspect of the left knee. There is diffuse vascular calcification. IMPRESSION: Status post knee replacement as described above with good alignment Dictated by: Mike Mora MD 03/09/2021 12:02 Mike Mora MD in [place] 03/09/2021 12:02
--- NOTE | 2021-03-09 11:45 | HMH.ANESI ---
[facility] Anesthesia Record Part I Intake, IV Amount: 1,300 Estimated blood loss (mL): 50 Urine output (mL): 200 Blood Pressure: 124/73 SaO2: 94 Pulse Rate: 62 Respiratory Rate: 16 Temperature: 97.7 F Patient is:: Drowsy, Stable Stable to PACU at:: 11:40
--- NOTE | 2021-03-09 12:25 | HMH.OPNOTE ---
Date of procedure: 03/09/21 Pre-op Diagnosis:: Degenerative arthritis, left knee Post-op Diagnosis:: Same Procedure performed:: Uncemented total knee arthroplasty, left knee Surgeon:: Chirag Rangel MD Continuous Improvement Intern(s):: Brisa Brown CLINICAL RESOURCE MANAGER:: Ortega Pereyra Anesthesia: spinal Estimated blood loss (mL): 50 Clinical Note:: Patient is a 70-year-old male with end-stage osteoarthritis and [id number] changes over the medial compartment with a progressive varus deformity and flexion contracture of his left knee presented with unremitting severe pain not relieved by conservative management. The arthritic process and pain are advanced to the point that it is becoming a hazard for the patient with risk of falling and injuring himself. A total knee arthroplasty is indicated to relieve the pain, improve function, reduce the risk of falls and improve quality of life. Please refer to my office note for full details. Operative findings:: As noted on the preoperative evaluation, the knee joint has a fixed flexion of 10? with 5 degrees of fixed varus deformity. As seen on the x-rays, the medial and patellofemoral compartments are showing advanced degenerative changes with [id number] appearance. The menisci and cruciate ligaments are significantly degenerate. There is osteophyte formation over all 3 compartments. Bone quality is good. Operative note:: On the day of the surgery the patient was seen in the preoperative area. I have again reviewed the clinical and x-ray findings and again discussed the diagnosis, natural history and management options in detail including both nonsurgical and surgical. Patient has end-stage degenerative arthritis of the left knee and has failed to respond satisfactorily to appropriate conservative management so far and has opted for a total knee arthroplasty. The left knee joint is stiff and painful, and is limiting mobility, ADLs and quality of life. Also the knee gives out and patient is at risk of falls resulting in fractures. I have again discussed the details of the procedure, risks and benefits and alternatives in detail. The complications discussed include but are not limited to infection, injury to nerves and blood vessels including injury to popliteal artery, injury to tendons and ligaments, DVT and PE, fat embolism, intraoperative fracture, limb length inequality, patella fracture, patellofemoral instability, patellar clunk syndrome, quadriceps and patellar tendon rupture, implant failure, component loosening, periprosthetic femur and tibia fractures, stiffness /arthrofibrosis, limp, incomplete relief of pain, incomplete functional recovery, likely need for further surgery in future including revision and anesthetic complications including heart attack, stroke and even . We also discussed about the likely need for blood transfusion and transfusion reactions. We discussed how any of these events can be devastating. We have discussed nonsurgical alternatives as well. Patient understands and wishes to proceed with a left total knee arthroplasty as planned and I believe that he is fully informed as to the risks, benefits, and alternatives including nonsurgical alternatives. We also discussed the postoperative course including the rehab and physical therapy required. A physical examination was performed and documented. Patient understood the risks, agreed to proceed with surgery, signed the consent form and no guarantees or assurances were given or implied. The limb was appropriately marked and initialed by me. The patient was then brought to the operating room and a spinal anesthesia was administered by the development trainer. The patient was then positioned supine on the operating table. All the bony prominences were appropriately padded. A well-padded tourniquet cuff was placed high over the upper thigh. The left knee was then prepped with isopropyl alcohol followed by chlorhexidine and draped in the usual sterile fashion. Prior to t
--- NOTE | 2021-03-09 12:26 | HMH.ORTHHP ---
*Admission Date: 03/09/21 *Reason for consult:: Status post total knee arthroplasty, left *History of present illness: Patient is a 70 year old male admitted to hospital after an uneventful left total knee arthroplasty on 03/09 2021. He has had chronic left knee pain which has failed to respond satisfactorily to nonsurgical management including ice, NSAIDs, physical therapy and intra-articular injections. Following evaluation in the office, patient elected to proceed with a total knee arthroplasty. Total knee arthroplasty is indicated to reduce the risk of falls, improve her pain and mobility and quality of life. The surgical and nonsurgical alternatives were discussed in detail with the patient as well as the risks and benefits of the surgery. Please refer to my office note for full details. [facility] History I have reviewed the patient's past medical history: Yes Medical History: Reports:: Anxiety, Arrhythmia, Atherosclerotic Heart Disease, Atrial Fibrillation, Cancer (melanoma), Cardiomyopathy, Congestive Heart Failure, Coronary Artery Disease, Hyperlipidemia, Hypertension, Internal Pacemaker, Myocardial Infarction, Palpitations, Renal Disease Denies:: Diabetes Mellitus Type 1, Diabetes Mellitus Type 2, MRSA, Seizures *Have you ever received a pneumonia vaccine?: Yes (2019) *Have you received a flu vaccine this season?: Yes (2019) Other Medical History: Reports: Arthritis. Denies: Blood Transfusion Reaction, Hypothyroidism Anesthesia experience/problems:: nac Laterality Cases: Right: Arthroscopy Knee, Total Knee Replacement, Bilateral: Tonsillectomy, Other Other Surgeries: Yes: Angioplasty, Appendectomy, CABG, Cardiac Catheterization, Colonoscopy, EGD, Hernia Repair, Pacemaker, Other (knee replacement, wrist replacement, achilles tendon repair right side) Amputation: No Fractures: Yes (ORIF of wrist and ankle) - *Social History Last grade of school completed: Advanced degree Smoking Status: Never smoker Tobacco Type: cigarettes # Packs/Day (cigarettes): 10 Alcohol Intake: never Substance Use Type: denies use *Occupational Status:: retired Housing: house Household Members: spouse *Travel in the last 8 weeks: None - Psychiatric History Pschychiatric History:: Reports:: Anxiety Family Hx:: Cancer, Heart Attack Review of Systems - Review of Systems Review of systems:: pertinent systems reviewed and negative unless documented below - Constitutional Denies chills, Denies fever(s) - Eyes Denies change in vision - ENT Denies abnormal hearing, Denies difficulty swallowing - *Cardiovascular Denies chest pain, Denies shortness of breath - *Respiratory Denies chest congestion, Denies cough - *Gastrointestinal Denies abdominal pain, Denies change in bowel habits - *Musculoskeletal Reports abnormal walking, Reports joint pain, Reports deformity, Reports joint swelling - *Neurologic Reports abnormal walking, Denies seizure-like activity, Denies tingling/numbness/burning sensations - Endocrine Denies cold intolerance, Denies heat intolerance - Hematologic/Lymphatic Denies easy bleeding, Denies easy bruising Meds Home Medications Medication Instructions Recorded Confirmed Type pantoprazole 40 mg tablet,delayed 40 mg PO DAILY 09/27/17 03/25/21 History release Donepezil HCl [Aricept 10mg 10 mg PO HS 10/01/18 03/25/21 History tablet] Ibuprofen [Ibuprofen 800mg 800 mg PO TIDP PRN 05/02/20 03/25/21 History Tablet] Nitroglycerin 0.4 mg SL Q5MINP PRN 08/28/20 03/25/21 History Bumetanide 1 mg PO BID 01/11/21 03/25/21 History fluoxetine 20 mg capsule 60 mg PO DAILY cap 02/23/21 03/25/21 History memantine 10 mg tablet 10 mg PO BID tab 02/23/21 03/25/21 History trazodone 100 mg tablet 100 mg PO BID tab 02/23/21 03/25/21 History Rivaroxaban [Xarelto 20mg Tablet*] 20 mg PO DAILY 03/09/21 03/25/21 History Ropinirole HCl [Requip] 5 mg PO HS 03/09/21 03/25/21 History bisoproloL fumarate [Zebeta 5mg 10 mg PO BID ta
--- NOTE | 2021-03-09 12:47 | PC.NURSE ---
NOTIFIED ISABELLE LANE RN IN 'S OFFICE ABOUT CONSULT FOR MEDICAL MANAGEMENT
--- NOTE | 2021-03-09 13:41 | PC.NURSE ---
Pt would benefit from a walker d/t poor mobility and altered weight bearing status d/t total knee replacement surgery.
--- NOTE | 2021-03-09 13:59 | SW/DCPLANNER ---
ORDERED A ROLLING WALKER FOR THIS PATIENT TO BE DELIVERED TO HIS ROOM THIS AFTERNOON, PATIENT STATED IT WAS OK TO GET IT LOCALLY.. I HAVE SENT PATIENT INFORMATION TO [facility]... PT WILL SEE PATIENT LATER IN THE AFTERNOON, ANTICIPATE TO DISCHARGE HOME IN THE AM PENDING NO SETBACKS...
--- NOTE | 2021-03-09 14:00 | HMH.ANESII ---
[facility] Anesthesia Record Part II Discharge Time: 12:00 Destination: Medical Surgical Department PACU nurse assessment reviewed?: Yes Patient Condition:: Good Anesthesia Complications:: None Swallowing reflex intact?: Yes Cyanosis?: No Blood Pressure: 120/74 Pulse Rate: 70 Temperature: 97.7 F Mental Status: Alert & Oriented Pain level:: 0 Nausea and/or vomitting:: None Intake, IV Amount: 0
[2021-03-09 14:11] LABS: Microscopic,Cath URINE MICROSCOPIC (MICROSCOPIC)
[2021-03-09 14:17] LABS: Appearance,Urine/Cath CLEAR (Clear); Blood, Urine/Cath Negative (Negative); Color,Urine/Cath YELLOW (Yellow); Glucose,Urine/Cath (UA) Negative (Negative); Ketones,Urine/Cath Negative (Negative); Leukocyte Esterase,Cath Negative (Negative); Nitrate,Cath Negative (Negative); Protein,Urine/Cath 1+ (Negative); Specific Gravity, Urine/Cath >= 1.030 (1.005-1.030)
--- NOTE | 2021-03-09 14:34 | HMH.PHAVTE ---
[facility] Pharmacy VTE Monitoring - Patient Demographics Admission date: 03/09/21 Report Date: 03/09/21 Time: 14:34 Allergies/Adverse Reactions: Patient Allergies Iodinated Contrast Media [Iodinated Contrast Media - Oral and] Allergy (Severe, Verified 03/04/21 13:45) Anaphylaxis iodine Allergy (Severe, Verified 03/04/21 13:45) Anaphylaxis Height: 1.7 m Weight: 97.296 kg - Prophylaxis VTE Prophylaxis Ordered?: Yes Types of VTE Prophylaxis: IPCS Thigh High, Pharmacological Location of Applied Device: Right Leg Pharmacologic Type: Other (XARELTO)
[2021-03-09 14:59] LABS: Bilirubin,Cath 1+ (Negative)
--- NOTE | 2021-03-09 17:23 | PC.NURSE ---
Pt has done well since arriving to the floor. 2LNC was applied while pt was sleeping, pt would desat to the lower to mid 80's on RA. Pt is now awake and on RA w/ o2 sats >95%. Polar pack remains on lt knee. IS used hourly while awake-1000cc's achieved @ best. Pt has had no c/o knee pain. No other acute changes or complaints at this time.
--- NOTE | 2021-03-09 21:32 | HMH.CONS ---
*Admission Date: 03/09/21 *Reason for consult:: medical management post tkr *History of present illness: Patient is a 70-year-old white male presented to Dr. Rangel with [id number] erosion and underwent total knee replacement today. So far he has tolerated the procedure well. We are asked to follow along. 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 He is status post CABG, status post multiple stent deployments. He has a severe anaphylactic response to contrast. He would be very very reluctant to have any further studies. Patient subjectively feels like he may go into A. fib. He had some transient chest discomfort earlier evening that was relieved with morphine. He is declining nitroglycerin, and is without chest pain currently. He is getting O2 per nasal cannula, denies dyspnea. There is no pain in the jaw, sweating or diaphoresis. He relays that so far he is tolerating the seizure well. He is asking for up titration of his trazodone to 200 mg tonight and and up titration of his morphine. He has a Bansal in place [facility] History Medical History: Reports:: Anxiety, Arrhythmia, Atherosclerotic Heart Disease, Atrial Fibrillation, Cancer (melanoma), Cardiomyopathy, Congestive Heart Failure, Coronary Artery Disease, Hyperlipidemia, Hypertension, Internal Pacemaker, Myocardial Infarction, Palpitations, Renal Disease Denies:: Diabetes Mellitus Type 1, Diabetes Mellitus Type 2, MRSA, Seizures *Have you ever received a pneumonia vaccine?: Yes *Have you received a flu vaccine this season?: Yes Other Medical History: Reports: Arthritis. Denies: Blood Transfusion Reaction, Hypothyroidism Anesthesia experience/problems:: nac Laterality Cases: Left: Arthroscopy Knee, Right: Total Knee Replacement, Bilateral: Tonsillectomy, Other Other Surgeries: Yes: Angioplasty, Appendectomy, CABG, Cardiac Catheterization, Colonoscopy, Coronary Stent, EGD, Hernia Repair, Pacemaker, Other (knee replacement, wrist replacement, achilles tendon repair right side) Amputation: No Fractures: Yes (ORIF of wrist and ankle) - *Social History Last grade of school completed: Advanced degree Smoking Status: Never smoker Tobacco Type: cigarettes # Packs/Day (cigarettes): 10 Alcohol Intake: never Substance Use Type: denies use *Occupational Status:: retired Housing: house Household Members: spouse *Travel in the last 8 weeks: None - Psychiatric History Pschychiatric History:: Reports:: Anxiety Family Hx:: Unable to obtain Review of Systems - Constitutional Denies fever(s) - Eyes Denies change in vision - ENT Reports abnormal hearing - *Cardiovascular Reports chest pain with activity, Denies shortness of breath - *Respiratory Denies chest congestion - *Gastrointestinal Denies abdominal pain - *Genitourinary Denies difficulty urinating - *Musculoskeletal Reports abnormal walking, Reports joint pain, Reports limited joint movement - Integumentary/Breasts Denies yellowing of the skin - *Neurologic Reports abnormal walking, Reports abnormal hearing, Denies behavioral changes - Psychiatric Reports abnormal sleep pattern, Reports other Comments: ptsd from serving in [employer] during the [place] war as a pathologist - Endocrine Denies flushing - Hematologic/Lymphatic Denies easy bleeding, Denies easy bruising - Allergic/Immunologic Denies hives Meds Home Medications Medication Instructions Recorded Confirmed Type pantoprazole 40 mg tablet,delayed 40 mg PO DAILY 09/27/17 03/09/21 History release Donepezil HCl [Aricept 10mg 10 mg PO HS 10/01/18 03/09/21 History tablet] bisoprolol fumarate 10 mg tablet 10 mg PO DAILY #90 tab 04/30/20 03/09/21 Rx Ibuprofen [Ibuprofen 800mg 800 mg PO TIDP PRN 05/02/20 03/09/21 History Tablet] Amlodipine Besylate 5 mg PO DAILY 08/28/20 03/09/21 History Nitroglycerin 0.4 mg SL Q5MINP PRN 08/28/20 03/09/21 History Bumetanide
--- NOTE | 2021-03-09 21:46 | PC.NURSE ---
trash pulled and snack offered at this time
[2021-03-10] VITALS (10 sets, daily range): BP systolic 111–134; BP diastolic 54–79; PULSE 65–87; RESP 18–20; TEMP 36.6–38.4; O2SAT 91–99
--- NOTE | 2021-03-10 03:51 | PC.NURSE ---
Pt is A/O x4. No acute changes this shift. Pt has been restless and stated he was unable to stay asleep. Pt requested pain meds throughout the night. Meds given per NOV. IV patent. Bansal in place draining clear, yellow urine. Polar pack on left knee. Pt is on 2LNC stats remain high 90's all night. left knee dressing is C/D/I. VSS, Call light within reach, no concerns at this time.
--- NOTE | 2021-03-10 05:32 | PC.NURSE ---
ice water passed and trash pulled at this time
[2021-03-10 06:37] LABS: Basophils % 0.4 % (0.1-2.0); Eosinophils # 0.3 K/mm3 (0.0-0.4); Eosinophils % 2.6 % (0.1-12.0); Hematocrit 31.3 % (42.0-52.0); Hemoglobin 9.5 g/dL (14.1-18.0); Lymphocytes % 11.1 % (10-50); Mean Corpuscular HGB Conc 30.2 g/dL (31.8-35.4); Mean Corpuscular Hemoglobin 23.9 pg (27.0-31.2); Mean Corpuscular Volume 79.1 fl (80-94); Mean Platelet Volume 7.4 fl (7.4-10.4); Monocytes # 0.5 K/mm3 (0.1-1.0); Monocytes % 5.3 % (1.7-9.3); Neutrophils # 7.5 K/mm3 (1.8-7.8); Neutrophils % 80.6 % (37.0-80.0); Platelet Count 237 K/mm3 (142-424); Red Blood Count 3.95 M/mm3 (4.60-6.20); Red Cell Distribution Width 16.4 % (11.5-17.5); White Blood Count 9.3 K/mm3 (4.8-10.8)
[2021-03-10 06:42] LABS: Chloride 103 mmol/L (98-107); Sodium 142 mmol/L (136-145)
[2021-03-10 06:43] LABS: Potassium 3.8 mmoL/L (3.5-5.1)
[2021-03-10 06:45] LABS: Blood Urea Nitrogen 13 mg/dl (9-20); Creatinine Clearance Estimated 97 mL/min (50-200); Estimated Glomerular Filt Rate 83 ml/min (>60); GFR (African American) 101 ML/MIN (>60)
[2021-03-10 06:46] LABS: Anion Gap 11.8 mEq/L (5-15); Calcium 8.5 mg/dl (8.4-10.2); Carbon Dioxide 31 mmol/L (22.0-30.0); Glucose 213 mg/dl (74-100)
--- NOTE | 2021-03-10 09:44 | HMH.CONFU ---
Internal Medicine - PN: Subj *Date: 03/10/21 *Time: 19:56 Interval history: 70-year-old male patient sitting up in bed, he reports he had a very bad night. He reports left knee was very painful, he does appear anxious and does report some midsternal chest pain that is no worse than before. Polar pack intact to left knee, he is able to move foot and toes. Discussed increasing pain medicine and adding Ativan he is agreeable to this Exam Vital signs and Labs for Last 24 Hours: Temp Pulse Resp BP Pulse Ox 98.8 F 76 18 113/79 92 L 03/10/21 07:29 03/10/21 07:29 03/10/21 07:29 03/10/21 07:29 03/10/21 07:29 Laboratory Results - last 24 hr 03/09/21 08:00: Urine Color Yellow, Urine Appearance Clear, Urine pH 6.0, Ur Specific [place] >= 1.030, Urine Protein 1+, Urine Glucose (UA) Negative, Urine Ketones Negative, Urine Blood Negative, Urine Nitrate Negative, Urine Bilirubin 1+ A, Urine Urobilinogen 1.0, Ur Leukocyte Esterase Negative, Urine RBC None, Urine WBC None, Ur Squamous Epith Cells None, Urine Bacteria None 03/10/21 06:13: WBC 9.3, RBC 3.95 L, Hgb 9.5 L, Hct 31.3 L, MCV 79.1 L, MCH 23.9 L, MCHC 30.2 L, RDW 16.4, Plt Count 237, MPV 7.4, Neut % (Auto) 80.6 H, Lymph % (Auto) 11.1, Vance % (Auto) 5.3, Eos % (Auto) 2.6, Baso % (Auto) 0.4, Neut # (Auto) 7.5, Lymph # (Auto) 1.0, Vance # (Auto) 0.5, Eos # (Auto) 0.3, Baso # (Auto) 0.0 03/10/21 06:13: Sodium 142, Potassium 3.8, Chloride 103, Carbon Dioxide 31 H, Anion Gap 11.8, BUN 13, Creatinine 0.90, Estimated Creat Clear 97, Estimated GFR 83, Est GFR ( Amer) 101, Glucose 213 H, Calcium 8.5 I & O for Last 24 hours: Intake & Output 06/19/21 06/20/21 06/21/21 06/22/21 23:59 23:59 23:59 23:59 Intake Total 1899 660 / 660 Output Total 1999 Balance 1899 / 2139 -1340 / -1340 Weight 224 lb - Constitutional mild distress - *Routine HEENT Exam Head: Present: normocephalic Eye: Present: EOMI ENT: Present: mucous membranes moist - *Routine Neck Exam Present: trachea midline. Absent: tracheal deviation - *Routine Respiratory Exam Present: CTA bilaterally. Absent: accessory muscle use - *Routine Cardiovascular Exam Present: RRR - *Routine Abdominal Exam Present: soft, normoactive bowel sounds. Absent: tenderness, firm - *Routine Extremities Exam Present: edema, pulses intact. Absent: cyanosis, calf tenderness Comments: Jayant wrap intact to left knee Polar pack intact to left knee - *Routine Skin Exam Present: warm, wounds. Absent: cyanosis, erythema - *Routine Neurological Exam Present: alert, oriented X3. Absent: altered mental status - Routine Psychiatric Exam Present: normal affect, normal thought process, auditory hallucinations. Absent: visual hallucinations Assessment and Plan (1) Chest tightness Status: Acute Category: Medical Code(s): R07.89 - Other chest pain (2) Allergy to imaging contrast media Status: Chronic Category: Medical Code(s): Z91.041 - Radiographic dye allergy status (3) Anxiety state Status: Chronic Category: Medical Code(s): F41.1 - Generalized anxiety disorder (4) Benign essential hypertension Status: Chronic Category: Medical Code(s): I10 - Essential (primary) hypertension (5) Coronary arteriosclerosis Status: Chronic Category: Medical Code(s): I25.10 - Atherosclerotic heart disease of [place] coronary artery without angina pectoris (6) History of coronary artery bypass graft Status: Chronic Category: Surgical Code(s): Z95.1 - Presence of aortocoronary bypass graft (7) Pain in lower limb Status: Chronic Category: Medical Code(s): M79.606 - Pain in leg, unspecified (8) Cardiomyopathy Status: Chronic Qualifiers: Cardiomyopathy type: unspecified Qualified Code(s): I42.9 - Cardiomyopathy, unspecified Category: Medical Code(s): I42.9 - Cardiomyopathy, unspecified (9) Precordial chest pain Status: Acute Category: Medica
--- NOTE | 2021-03-10 09:55 | HMH.OTEV ---
OT Inpatient Evaluation Rehab OT IP Evaluation Start: 03/09/21 12:01 Freq: ONCE Status: Complete Protocol: Document 03/10/21 09:52 DEEPTOWSON (Rec: 03/10/21 09:55 [facility] [id number]) Rehab OT IP Assessment Subjective History Pt oriented x 3 on arrival. Pt agreeable to engage in therapy evaluation. Pt was admitted on 03/09/21 after a L total knee arthroplasty. Pt has a past medical history of Anxiety, Arrhythmia, Atherosclerotic Heart Disease, Atrial Fibrillation, Cancer ( melanoma), Cardiomyopathy, Congestive Heart Failure, Coronary Artery Disease, Hyperlipidemia, Hypertension, Internal Pacemaker, Myocardial Infarction, Palpitations, Renal Disease. Pt reports prior to surgery he lived at home with his . He claims he was independent with all ADLs and IADLs. He did use a walker during ambulation. He also still drove. Subjective I helped my . Objective Patient Orientation Person,Place,Birthday Upper Extremity Gross ROM WFL Bed Mobility bed mobility-scooting,bed mobility - supine/sit,bed mobility - rolling Assist Level Moderate x 1 (50% assist) Transfer Training Sit/Stand Transfer Assist Level Moderate x 2 (50% assist) Chair Transfer Ability Moderate x 2 (50% assist) Chair Transfer Technique Sit to/from Ambulatory Chair Transfer Assistive Devices Rolling Walker Rehab OT IP prob,goals,plan Problems Date of Evaluation: 03/10/21 OT IP Problems Bed Mobility,Transfers,Gait, Balance,Self care,Safety Rehab Potential Rehab Potential Good Equipment Needs Assistive Devices Rolling / Wheeled Walker Plan OT intervention Plan Bed Mobility,Transfers,Gait, Balance,Self care,Safety, Therapeutic Exercise OT Plan Frequency BID Duration LOS Discharge Goals Bed Mobility Ability Assistance x1 Sit to Stand Chair Transfer Ability Minimal x 1 (25% assist) Chair Transfer Ability Minimal x 1 (25% assist)
--- NOTE | 2021-03-10 10:22 | HMH.CNCARD ---
History of Present Illness Consult date: 03/10/21 Requesting physician: Alec Bhandari Consult reason: atrial fibrillation Chief complaint: Arrhythmia Additional Medical History:: 1. Coronary artery disease and cardiomyopathy A. History of 5 vessel coronary bypass grafting, 1998 B. History of 20 coronary stents placed C. Cardiomyopathy with ejection fraction reportedly at about 43% per patient. D. Echocardiogram x2, 09/2018 both showing ejection fraction in the 50-60% range. E. R and L heart cath, 12/2016, [facility], Dr. Dale, showing- stenting distal dominant RCA and to the posterior descending artery, Cardiomyopathy with EF 10% ,severely elevated LVEDP and left sided filling pressures, moderate to severe pulmonary HTN 2. History of paroxysmal atrial fibrillation A. On Xarelto anticoagulation B. BRYCE/Cardioversion, , 2016 C. Amiodarone therapy stopped 07/2017 3. Pacemaker in situ A. Implanted, B. Recurrent Non-sustained high V rates noted. Continue beta juan therapy. 4. Hypertension A. Echo, 03/2020, 1. Mildly enlarged left atrium, normal left ventricular size, mild concentric left ventricular hypertrophy visually estimated ejection fraction 55% with no regional wall motion abnormality. Grade 1 diastolic dysfunction seen without tissue Doppler evidence of raise left atrial pressure. 2. Mild aortic, mild mitral and tricuspid regurgitation. 3. No significant pericardial effusion noted 5. Hyperlipidemia 6. Infrarenal Abdominal aortic aneurysm, 3.6 X 3.5 cm, 09/2018 7. Chronic kidney disease, stage II A. Chronic iron deficiency anemia 8. Ex-smoker 9. TRUE ANAPHYLACTIC REACTION TO IV CONTRAST 10. Severe pulmonary hypertension secondary to decompensated left-sided CHF, 04/2020 A. Right heart catheterization, 05/01/2020, ANGIOGRAPHIC RESULTS Right atrial pressure 8 mmHg Pulmonary artery pressure 52/28 mmHg Artery occlusion pressure 26 mmHg Right atrial saturation 60% Pulmonary artery saturation 62% IMPRESSION Severe pulmonary hypertension secondary to decompensated left-sided congestive heart failure PLAN 1. Patient requires better diuresis 2. I recommend decreasing patient's body weight by at least 5 pounds and then consider repeating right heart cath based on symptoms 3. Consider cardio Mem if it is possible to deploy this without using IV contrast 11. Esophageal stricture with food impaction, 04/2020, biopsies showing Gomez's esophagus A. EGD, Dr. Dc Thomas, 04/2020, 1. Esophageal food impaction status post removal, biopsies and balloon dilation 2. Distal esophageal stricture with ulcerative esophagitis (rule out reflux esophagitis versus pill induced esophagitis with stricturing) 3. Small hiatal hernia 12. Left total knee arthroplasty, 03/09/2021 13. Early dementia 14. Thyroid nodules A. Thyroid ultrasound,08/2019, Enlarged thyroid gland with bilateral thyroid nodules. On the right the nodules are TR 4 moderately suspicious. Recommend six-month follow-up to confirm short term stability. The nodule on the left may be a cyst and can be followed as well Dictated by: Mike Mora MD 08/30/2019 09:18 History of present illness: 70-year-old white male admitted to the hospital after left knee arthroplasty yesterday for IV antibiotics, physical therapy and cardiac evaluation for possible arrhythmia. [facility] History Medical History: Reports:: Anxiety, Arrhythmia, Atherosclerotic Heart Disease, Atrial Fibrillation, Cancer (melanoma), Cardiomyopathy, Congestive Heart Failure, Coronary Artery Disease, Hyperlipidemia, Hypertension, Internal Pacemaker, Myocardial Infarction, Palpitations, Renal Disease Denies:: Diabetes Mellitus Type 1, Diabetes Mellitus Type 2, MRSA, Seizures *Have you ever received a pneumonia vaccine?: Yes *Have you received a flu vaccine this season?: Yes Other Medical History: Reports: Arthritis. Denies: Blood Transfu
--- NOTE | 2021-03-10 10:28 | HMH.PTEV ---
Physical Therapy Evaluation Rehab PT IP Evaluation Start: 03/09/21 12:01 Freq: ONCE Status: Active Protocol: Document 03/10/21 10:20 BETINA (Rec: 03/10/21 10:27 BETINA [id number]) Subjective/History History History Patient is a 70-year-old white male presented to Dr. Rangel with [id number] erosion and underwent total knee replacement yesterday. Pt is very [place] Subjective Subjective Pt reports severe pain in LLE/ lnee - pt reports he is going home today - pt reports he used walker prior to sx and uses W/C outside of home for mobility Rehab PT IP Eval Objective Appearance Patient Behavior Cooperative Patient Orientation Person,Place,Time Difficulty following instructions none Speech Pattern Appropriate Ambulation Patient Able to Ambulate Yes Ambulation Observation IP General Gait Pattern Observation Antalgic Gait,Shuffling Step Ambulation Distance (feet) 5 Ambulation Assistive Device Rolling Walker Ambulation Ability Contact Guard/Hand Hold Balance Ability to Arise Able, uses arms to help Sitting Balance Steady, safe Standing Balance Unsteady Dynamic Sitting Balance Ability Fair Dynamic Standing Balance Ability Poor Transfers Chair Transfer Ability Moderate x 1 (50% assist) Sit to Stand Chair Transfer Ability Moderate x 1 (50% assist) Pain Left Knee Pain Intensity 9 Rehab PT IP prob,goals,plan Problems Date of Evaluation: 03/10/21 PT IP Problems Transfers,Gait,Balance,Self care,Safety Rehab Potential Rehab Potential Fair Equipment Needs Assistive Devices Rolling / Wheeled Walker Plan PT Intervention Plan Transfers,Gait,Therapeutic Exercise PT Plan Frequency BID Duration LOS Discharge Goals Sit to Stand Chair Transfer Ability Minimal x 1 (25% assist) Ambulation Assistive Device Rolling Walker Ambulation Distance (feet) 5 Discharge Plan PT Discharge Plan Pt reports he is going home but therapist feels pt would benefit from ST rehab at SNF to allow return to higher level of function prior to return hpme G -code Required Yes Eval Complexity E
--- NOTE | 2021-03-10 12:47 | ECG_ITS ---
APPROVED REPORT Exam: Resting ECG HR:71 bpm ECG Measurements Heart Rate 71 AXES OK 146 P -17 QRSd 86 QRS 43 QT 426 T -59 QTc 462 Conclusion Electronic atrial pacemaker ST & T wave abnormality, consider anterior ischemia Prolonged QT Abnormal ECG Electronically signed by : Shay Oro, 03/11/2021 17:39:22
--- NOTE | 2021-03-10 12:49 | PC.NURSE ---
Deepaking w/ Dr. Rangel, present @ bedside pt c/o chest pain. Per Dr. Rangel stat EKG ordered @ this time. RT notified.
--- NOTE | 2021-03-10 13:45 | HMH.ORTHPN ---
Subjective Date: 03/10/21 Time: 12:30 Principal diagnosis: Status post total knee arthroplasty, left Interval history: Patient is status post left total knee arthroplasty post op day #1. Patient is lying down on the bed. Patient says he is having intermittent chest pain as well as left knee pain. He was seen earlier by cardiology team and appropriate management has been instituted. No history of any nausea or vomiting. Patient appears somewhat drowsy and nursing staff reports that he was given Ativan in the morning for anxiety. PN: Obj Ex Vital signs: Temp Pulse Resp BP Pulse Ox 100.1 F H 70 19 134/54 L 91 L 03/10/21 11:11 03/10/21 11:11 03/10/21 11:11 03/10/21 11:11 03/10/21 11:11 Narrative: Laboratory Results - last 24 hr 03/09/21 08:00: Urine Color Yellow, Urine Appearance Clear, Urine pH 6.0, Ur Specific [place] >= 1.030, Urine Protein 1+, Urine Glucose (UA) Negative, Urine Ketones Negative, Urine Blood Negative, Urine Nitrate Negative, Urine Bilirubin 1+ A, Urine Urobilinogen 1.0, Ur Leukocyte Esterase Negative, Urine RBC None, Urine WBC None, Ur Squamous Epith Cells None, Urine Bacteria None 03/10/21 06:13: WBC 9.3, RBC 3.95 L, Hgb 9.5 L, Hct 31.3 L, MCV 79.1 L, MCH 23.9 L, MCHC 30.2 L, RDW 16.4, Plt Count 237, MPV 7.4, Neut % (Auto) 80.6 H, Lymph % (Auto) 11.1, [place] % (Auto) 5.3, Eos % (Auto) 2.6, Baso % (Auto) 0.4, Neut # (Auto) 7.5, Lymph # (Auto) 1.0, Ramsey # (Auto) 0.5, Eos # (Auto) 0.3, Baso # (Auto) 0.0 03/10/21 06:13: Sodium 142, Potassium 3.8, Chloride 103, Carbon Dioxide 31 H, Anion Gap 11.8, BUN 13, Creatinine 0.90, Estimated Creat Clear 97, Estimated GFR 83, Est GFR ( Amer) 101, Glucose 213 H, Calcium 8.5 Intake & Output 03/08/21 03/09/21 03/10/21 03/11/21 11:59 11:59 11:59 11:59 Intake Total 1300 / 1300 1260 / 1260 240 / 240 Output Total 1999 Balance 1300 / 1300 -740 / -740 240 / 240 Weight 224 lb Exam General appearance: Drowsy, mild distress Cardiovascular: regular rate & rhythm, normal peripheral pulses Respiratory: No respiratory distress noted, speaks in full sentences ABD: soft and non tender Neuro: Drowsy, oriented x 3 Psych Appropriate mood and affect for the situation On examination of the lower extremities the limb lengths are equal. On examination of the left knee the dressings are clean, dry and intact. Calf is soft and compressible. Distal pulses are 1+. Capillary refill is brisk. Intact sensation to light touch over the left foot and ankle he is actively moving the ankle, foot and the toes. 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 Patient is having intermittent chest pain-defer the management to cardiology team. Recommend starting physical therapy as soon as possible once patient is comfortable and stable from a cardiac standpoint. Use knee immobilizer when weightbearing and walking until he regains full quadriceps control and is able to actively straight leg raise. Restart patient's preoperative anticoagulation which should be sufficient for DVT prophylaxis. Case management consult regarding discharge planning. Continue medical management as per Dr. Bhandari.
--- NOTE | 2021-03-10 14:04 | SW/DCPLANNER ---
Addendum entered by Violeta Glendale 03/12/21 09:31: Discharge order/summary has been signed by Dr Rangel this morning and faxed to Marguerite at [facility]. [facility] level [facility] care today. I spoke with patients and she is willing to transport patient today. I have made nursing staff (Violeta) aware of situation. Addendum entered by [facility] 03/11/21 15:23: Marguerite with [facility] has asked that due to discharge paperwork not being completed that the patient wait till tomorrow for admission due to Pharmacy not being able to get medications. I have relayed this message to patients nurse (Monica). Nurse stated that she would inform family and Dr Asher office of plan and to cancel discharge order. I will follow up with patient/family, Dr Rangel and Marguerite w/[facility] tomorrow morning. Addendum entered by [facility] 03/11/21 10:15: Dr. Mathew with [facility] is accepting MD. Phone # for report: [phone] Addendum entered by Violeta Glendale 03/11/21 09:55: This patient has been accepted to [facility] for today. Patient will need additional COVID swab and has been ordered for this morning. I have spoke with patients and she does plan to transport patient after MD appointment at [facility]. Patient will discharge today. Original Note: I spoke with this patient/ this afternoon regarding discharge plans. Initially patient had planned on discharging from [facility], returning home and planned to participate with PT as an outpatient at [facility]. However due to PT recommending placement for this patient he is agreeable to [facility]. I spoke with patients whom is agreeable to placement for patient as well. Patient information has been faxed to Marguerite at [facility]. I will follow up with Marguerite one patient information is reviewed. [facility] phone: [phone] fax: [phone]
--- NOTE | 2021-03-10 16:17 | PC.NURSE ---
Pt has been less anxious since PRN dose of ativan. Pt has been a max x2 assist in room. He has not required any pain meds thus far this shift. Pt was febrile this shift and medicated w/ PRN tylenol. Upon reassessment, pt's temp decreased to 100.0. No other acute changes or complaints at this time. Will continue to monitor.
[2021-03-10 21:46] LABS: POC Glucose,Bedside 166 (70-110)
--- NOTE | 2021-03-10 22:47 | P.PN_ITS ---
Subjective Date: 03/10/21 Time: 19:00 Principal diagnosis: Status post total knee arthroplasty, left Interval history: Patient is status post left total knee arthroplasty post op day #1. Patient is lying down on the bed. Patient says he is doing well now and reports no more chest pain. He reports minimal pain in his left knee and says the pain is well controlled with as needed pain medication. He also reports he participated with some physical therapy this afternoon. No history of any distal tingling or numbness. PN: Obj Ex Vital signs: Temp Pulse Resp BP Pulse Ox 101.2 F H 87 18 134/75 94 L 03/10/21 14:51 03/10/21 16:00 03/10/21 14:51 03/10/21 14:51 03/10/21 18:42 Narrative: Exam General appearance: alert, active, awake, no acute distress Cardiovascular: regular rate & rhythm, normal peripheral pulses Respiratory: No respiratory distress noted, speaks in full sentences ABD: soft and non tender Neuro: alert, awake, oriented x 3 Psych Appropriate mood and affect for the situation On examination of the lower extremities the limb lengths are equal. On examination of the left knee the dressings are clean, dry and intact. I have changed the dressings and the surgical incision looks clean, dry and healthy. No bleeding or soakage of the dressings noted. Calf is soft and compressible. Distal pulses are 1+. Capillary refill is brisk. Intact sensation to light touch over the left foot and ankle. He is actively moving the ankle, foot and the toes. 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 He is doing better compared to earlier in the day and reports no chest pain. Patient is seen by physical therapy and recommend continuation of standard postoperative rehab for the total knee replacement. Use knee immobilizer when weightbearing and walking until he regains full quadriceps control and is able to actively straight leg raise. Physical therapy recommends that patient would benefit by placement in a [place] [facility] facility for rehab. Care management looking into discharge planning. Continue medical management as per Dr. Bhandari. While I was with the patient, Dr. Bhandari also came to see the patient. I have discussed his management with Dr. Bhandari and he thinks it would be appropriate for patient to be discharged tomorrow if a rehab bed becomes available.
[2021-03-11] VITALS (8 sets, daily range): BP systolic 94–142; BP diastolic 49–86; PULSE 68–82; RESP 18–20; TEMP 36.6–37.2; O2SAT 92–97; BMI 35.2
--- NOTE | 2021-03-11 04:05 | PC.NURSE ---
No acute changes this shift. Pt slept well all night. Pt is on 2L NC stats remain in upper 90's all night. Pt complained of pain x2 this shift admin meds per MAR with relief. Lungs sound CTA. Pt has remained in bed and uses urinal. IV patent in left AC infusing LR @ 75ml/hr. Pt is A/O x4. Pt is able to make needs known to staff, VSS, no concerns at this time.
[2021-03-11 06:27] LABS: Basophils # 0.1 K/mm3 (0-0.2); Basophils % 0.8 % (0.1-2.0); Eosinophils # 0.2 K/mm3 (0.0-0.4); Eosinophils % 1.4 % (0.1-12.0); Hematocrit 29.7 % (42.0-52.0); Hemoglobin 9.3 g/dL (14.1-18.0); Lymphocytes # 1.4 K/mm3 (0.7-4.5); Lymphocytes % 10.3 % (10-50); Mean Corpuscular HGB Conc 31.3 g/dL (31.8-35.4); Mean Corpuscular Hemoglobin 23.6 pg (27.0-31.2); Mean Corpuscular Volume 75.3 fl (80-94); Mean Platelet Volume 7.7 fl (7.4-10.4); Monocytes # 0.9 K/mm3 (0.1-1.0); Monocytes % 6.3 % (1.7-9.3); Neutrophils # 11.1 K/mm3 (1.8-7.8); Neutrophils % 81.3 % (37.0-80.0); Platelet Count 225 K/mm3 (142-424); Red Blood Count 3.95 M/mm3 (4.60-6.20); Red Cell Distribution Width 16.4 % (11.5-17.5); White Blood Count 13.7 K/mm3 (4.8-10.8)
[2021-03-11 06:37] LABS: Chloride 100 mmol/L (98-107); Potassium 3.5 mmoL/L (3.5-5.1); Sodium 139 mmol/L (136-145)
[2021-03-11 06:40] LABS: Anion Gap 11.5 mEq/L (5-15); Blood Urea Nitrogen 21 mg/dl (9-20); Calcium 8.1 mg/dl (8.4-10.2); Carbon Dioxide 31 mmol/L (22.0-30.0); Creatinine Clearance Estimated 81 mL/min (50-200); Estimated Glomerular Filt Rate 60 ml/min (>60); GFR (African American) 72 ML/MIN (>60); Glucose 130 mg/dl (74-100)
--- NOTE | 2021-03-11 08:28 | HMH.CONFU ---
Internal Medicine - PN: Subj *Date: 03/11/21 *Time: 09:41 Interval history: 70-year-old male patient sitting up in bed, he denies any chest pain or shortness of breath during the night. He reports having a better night than the previous evening, reports pain is at a tolerable level and anxiety is greatly reduced. Discussed discharge to a rehab facility he is agreeable to this and can be discharged from a medical standpoint. Exam Vital signs and Labs for Last 24 Hours: Temp Pulse Resp BP Pulse Ox 98.7 F 80 18 142/70 H 97 03/11/21 04:00 03/11/21 04:00 03/11/21 04:00 03/11/21 04:00 03/11/21 04:00 Laboratory Results - last 24 hr 03/10/21 19:53: POC Glucose 166 H 03/11/21 06:00: WBC 13.7 H D, RBC 3.95 L, Hgb 9.3 L, Hct 29.7 L, MCV 75.3 L, MCH 23.6 L, MCHC 31.3 L, RDW 16.4, Plt Count 225, MPV 7.7, Neut % (Auto) 81.3 H, Lymph % (Auto) 10.3, [place] % (Auto) 6.3, Eos % (Auto) 1.4, Baso % (Auto) 0.8, Neut # (Auto) 11.1 H, Lymph # (Auto) 1.4, [place] # (Auto) 0.9, Eos # (Auto) 0.2, Baso # (Auto) 0.1 03/11/21 06:00: Sodium 139, Potassium 3.5, Chloride 100, Carbon Dioxide 31 H, Anion Gap 11.5, BUN 21 H D, Creatinine 1.20 D, Estimated Creat Clear 81, Estimated GFR 60, Est GFR ( Amer) 72 D, Glucose 130 H D, Calcium 8.1 L I & O for Last 24 hours: Intake & Output 03/08/21 03/09/21 03/10/21 03/11/21 23:59 23:59 23:59 23:59 Intake Total 1900 / 2140 2770 / 2770 Output Total 2860 / 2860 1000 / 1000 Balance 1900 / 2140 -90 / -90 -1000 / -1000 Weight 224 lb 224 lb 1 oz - Constitutional no acute distress - *Routine HEENT Exam Head: Present: normocephalic Eye: Present: EOMI ENT: Present: mucous membranes moist - *Routine Neck Exam Present: trachea midline. Absent: tracheal deviation - *Routine Respiratory Exam Present: accessory muscle use - *Routine Cardiovascular Exam Present: RRR - *Routine Abdominal Exam Present: soft, normoactive bowel sounds. Absent: tenderness, firm - *Routine Extremities Exam Present: edema, pulses intact. Absent: cyanosis, clubbing, calf tenderness - *Routine Skin Exam Present: wounds. Absent: intact Comments: Drsg to L Knee C/D/I - *Routine Neurological Exam Present: alert, oriented X3. Absent: altered mental status - Routine Psychiatric Exam Present: normal affect, normal thought process. Absent: auditory hallucinations, visual hallucinations Assessment and Plan (1) Chest tightness Status: Acute Category: Medical Code(s): R07.89 - Other chest pain (2) Allergy to imaging contrast media Status: Chronic Category: Medical Code(s): Z91.041 - Radiographic dye allergy status (3) Anxiety state Status: Chronic Category: Medical Code(s): F41.1 - Generalized anxiety disorder (4) Benign essential hypertension Status: Chronic Category: Medical Code(s): I10 - Essential (primary) hypertension (5) Coronary arteriosclerosis Status: Chronic Category: Medical Code(s): I25.10 - Atherosclerotic heart disease of [place] coronary artery without angina pectoris (6) History of coronary artery bypass graft Status: Chronic Category: Surgical Code(s): Z95.1 - Presence of aortocoronary bypass graft (7) Pain in lower limb Status: Chronic Category: Medical Code(s): M79.606 - Pain in leg, unspecified (8) Status post total knee replacement, left Status: Acute Category: Surgical Code(s): Z96.652 - Presence of left artificial knee joint (9) Cardiac pacemaker in situ Status: Chronic Category: Medical Code(s): Z95.0 - Presence of cardiac pacemaker (10) Cardiomyopathy Status: Chronic Qualifiers: Cardiomyopathy type: unspecified Qualified Code(s): I42.9 - Cardiomyopathy, unspecified Category: Medical Code(s): I42.9 - Cardiomyopathy, unspecified (11) Chronic systolic heart failure Status: Chronic Category: Medical Code(s): I50.22 - Chronic systolic (congestive) heart failure (12) Diabetes
[2021-03-11 10:18] LABS: Coronavirus 19, PCR Not Detected (NotDetected); Influenza A, PCR Not Detected (NotDetected); Influenza B, PCR Not Detected (NotDetected)
[2021-03-11 11:46] LABS: POC Glucose,Bedside 207 (70-110)
--- NOTE | 2021-03-11 12:15 | P.PN_ITS ---
Subjective Date: 03/11/21 Time: 11:30 Principal diagnosis: Status post total knee arthroplasty, left Interval history: 70-year-old white male in bedside chair in no acute distress. Much more alert today. He denies any chest pain, pressure or tightness. He has been up twice this morning without complications or problems. Systolic blood pressure noted to be in the mid 90s this morning which patient states is somewhat common occurrence for him at home. He denies any lightheadedness or dizziness. Exam Vital signs and Labs for Last 24 Hours: Temp Pulse Resp BP Pulse Ox 98.4 F 68 20 94/49 L 92 L 03/11/21 08:00 03/11/21 08:00 03/11/21 08:00 03/11/21 08:00 03/11/21 08:00 Laboratory Results - last 24 hr 03/10/21 19:53: POC Glucose 166 H 03/11/21 06:00: WBC 13.7 H D, RBC 3.95 L, Hgb 9.3 L, Hct 29.7 L, MCV 75.3 L, MCH 23.6 L, MCHC 31.3 L, RDW 16.4, Plt Count 225, MPV 7.7, Neut % (Auto) 81.3 H, Lymph % (Auto) 10.3, [place] % (Auto) 6.3, Eos % (Auto) 1.4, Baso % (Auto) 0.8, Neut # (Auto) 11.1 H, Lymph # (Auto) 1.4, [place] # (Auto) 0.9, Eos # (Auto) 0.2, Baso # (Auto) 0.1 03/11/21 06:00: Sodium 139, Potassium 3.5, Chloride 100, Carbon Dioxide 31 H, Anion Gap 11.5, BUN 21 H D, Creatinine 1.20 D, Estimated Creat Clear 81, Estimated GFR 60, Est GFR ( Amer) 72 D, Glucose 130 H D, Calcium 8.1 L 03/11/21 10:10: SARS-CoV-2 (PCR) Not detected, Influenza A Untype (PCR) Not detected, Influenza Type B (PCR) Not detected 03/11/21 11:20: POC Glucose 207 H I & O for Last 24 hours: Intake & Output 03/09/21 03/10/21 03/11/2103/12/21 11:59 11:59 11:59 11:59 Intake Total 1300 / 1300 1260 / 1260 2950 / 2950 Output Total 1999 1860 / 1860 Balance 1300 / 1300 -740 / -740 1090 / 1090 Weight 224 lb 224 lb 1 oz - Constitutional no acute distress - *Routine Respiratory Exam Present: CTA bilaterally - *Routine Cardiovascular Exam Present: RRR - *Routine Extremities Exam Present: edema. Absent: cyanosis, clubbing Progress Note: A&P (1) Chest tightness Status: Acute (2) Allergy to imaging contrast media Status: Chronic (3) Anxiety state Status: Chronic (4) Benign essential hypertension Status: Chronic (5) Coronary arteriosclerosis Status: Chronic (6) History of coronary artery bypass graft Status: Chronic (7) Pain in lower limb Status: Chronic (8) Status post total knee replacement, left Status: Acute (9) Cardiac pacemaker in situ Status: Chronic (10) Cardiomyopathy Status: Chronic (11) Chronic systolic heart failure Status: Chronic (12) Diabetes Status: Chronic Assessment and Plan for All Diagnoses:: Clinically stable from a cardiac standpoint for transfer to rehab. Medication recommendations: Bisoprolol 10 mg twice daily Bumex 1 mg twice daily Spironolactone 50 mg daily Xarelto 20 mg daily Amlodipine discontinued to allow more bisoprolol for control of tacky arrhythmias. Follow-up in our office as previously scheduled or sooner if needed
--- NOTE | 2021-03-11 14:11 | HMH.DCSUM ---
General - General Admission date:: 03/09/21 Discharge date: 03/12/21 HPI HPI: Patient is a 70-year-old male with advanced degenerative joint disease of the left knee who is admitted to the hospital electively following an uncomplicated primary total knee arthroplasty on 03/09/2021. Prior to surgery patient had long-standing pain, stiffness and disability secondary to advanced degenerative arthritis in his left knee. He has not responded well to conservative management including NSAID, Tylenol, and intra-articular injections in the past. He is using assistive walking devices. Total knee arthroplasty is indicated to reduce the risk of falls, improve her pain and mobility and quality of life. His walking distance and ADLs are adversely affected; he also has history of night pain and sleep disturbance. The knee feels unstable and he is at risk of falling and injuring himself. A total knee arthroplasty is indicated to reduce the risk of falls, improve the pain, mobility and quality of life. The surgical and nonsurgical alternatives were discussed in detail with the patient as well as the risks and benefits of the surgery. His medical history includes angina, history of NSTEMI, CHF, coronary artery disease, history of CABG, atrial fibrillation with pacemaker, hypertension, hyperlipidemia, diabetes, chronic pain syndrome. He is a non smoker. 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 Refer to my office note for full details. Hospital Course Hospital Course: Patient underwent an uncomplicated straightforward primary uncemented left total knee arthroplasty on 03/09/2021. Following surgery patient was admitted to hospital and progressed well without any orthopedic complications. The postoperative check x-ray was satisfactory with good alignment and fixation of the components. On the night of surgery and morning of the first postoperative day, patient had anginal chest pain which was managed by Dr. Bhandari and Dr. Dale's teams. Patient progressed rapidly with physical therapy and was able to mobilize using a walker. After 3 days of hospital stay for observation, patient is being discharged to a care home facility for rehab on 03/12/2021. At the time of discharge he has regained good quadriceps control and is able to actively straight leg raise. Patient has minimal pain and it is is well controlled with as needed oral medication. The incision is healthy and healing well. No signs of any erythema, induration or discharge noted. Patient was started on his preoperative dose of Xarelto which should be sufficient for DVT prophylaxis after surgery. The neurovascular status in both lower extremities is intact. Pedal pulses 2+ bilaterally and fully sensate distally. No clinical evidence of DVT noted. Patient was cleared for discharge by physical therapy, medical and cardiac teams. On the day of discharge, the patient has been stable. Patient is afebrile at the time of discharge. He is being discharged to a care home facility for rehab. Condition at discharge: improved and stable. Treatments and Procedures: Total knee arthroplasty, left knee; date of surgery 03/09/2021. Objective Vital signs: Temp Pulse Resp BP Pulse Ox 98.4 F 82 18 94/54 L 92 L 03/11/21 08:00 03/11/21 12:00 03/11/21 12:00 03/11/21 12:00 03/11/21 08:00 no acute distress - *Routine HEENT Exam Head: Present: normocephalic Eye: Present: EOMI, PERRL ENT: Present: mucous membranes moist - *Routine Neck Exam Present: supple - *Routine Respiratory Exam Present: CTA bilaterally - *Routine Cardiovascular Exam Present: RRR - *Routine Abdominal Exam Present: soft, normoactive bowel sounds. Absent: tenderness - *Routine Extremities Exam Comments: On examination of the lower extremities the limb lengths are equal. On examination of the left knee the incision is clean, dry and healthy. No signs of infection or other complications are noted. There is minimal s
--- NOTE | 2021-03-11 15:06 | PC.NURSE ---
Called report to [facility] at [facility], awaiting pt to be d/c'd. Pt's dsg will come off in a couple days and leave off until f/u, mesh to stay on and may be trimmed as if necessary per Dr. Rangel. Pt to f/u with Dr. Rangel as ordered.
[2021-03-11 15:58] LABS: POC Glucose,Bedside 195 (70-110)
--- NOTE | 2021-03-11 18:25 | PC.NURSE ---
This RN was informed that pt would have to wait until the am [facility] This RN informed pt, family and Riya at Dr. Rangel's office and Dr. Rangel was also working on correcting meds on d/c list. Pt is alert and oriented and able to make needs known. VSS. 02 at 2 L while pt was napping was applied. @ bedside. Lungs cta, bs x 4. has voided and had a lg bm this shift. CB in reach. Paced on tele.
--- NOTE | 2021-03-11 23:08 | HMH.ORTHPN ---
Subjective Date: 03/11/21 Time: 12:00 Principal diagnosis: Status post total knee arthroplasty, left Interval history: Patient is status post left total knee arthroplasty post op day #2. Patient is sitting on the chair. Patient says he is doing well and reports no more chest pain. He reports minimal pain in his left knee and says the pain is well controlled with as needed pain medication. He also reports he participated with. That physical therapy and mobilized well using walker for assistance. No history of any distal tingling or numbness. He says he is eating and drinking well. PN: Obj Ex Vital signs: Temp Pulse Resp BP Pulse Ox 98.9 F 80 20 105/63 L 92 L 03/11/21 17:08 03/11/21 20:00 03/11/21 17:08 03/11/21 17:08 03/11/21 17:08 Narrative: Exam General appearance: alert, active, awake, no acute distress Cardiovascular: regular rate & rhythm, normal peripheral pulses Respiratory: No respiratory distress noted, speaks in full sentences ABD: soft and non tender Neuro: alert, awake, oriented x 3 Psych Appropriate mood and affect for the situation On examination of the lower extremities the limb lengths are equal. On examination of the left knee the dressings are clean, dry and intact. Calf is soft and compressible. Distal pulses are 2+. Capillary refill is brisk. Intact sensation to light touch over the left foot and ankle. He is actively moving the ankle, foot and the toes. He is able to actively straight leg raise and has regained good quadriceps control. 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 He is doing well and reports no problems today. He is mobilizing well with physical therapy and is able to actively straight leg raise. Recommend continuation of standard postoperative rehab for the total knee replacement. Patient is cleared for discharge by physical therapy, medical and cardiac teams. He is being discharged to a group home facility for rehab. Continue medical management as per Dr. Bhandari.
[2021-03-12] VITALS: BP 108/60; PULSE 60; PULSE 71; RESP 18; TEMP 36.4; O2SAT 89
[2021-03-12 04:00] VITALS: BP 114/71; PULSE 70; PULSE 71; RESP 18; O2SAT 93
[2021-03-12 04:57] VITALS: BMI 35.2
--- NOTE | 2021-03-12 05:03 | PC.NURSE ---
patient given pain medication x 1 dose this shift with a pain scale of 8/10. No further complaints voiced. Call light within reach, bed at lowest level for safety, will continue to monitor.
[2021-03-12 06:36] LABS: Basophils # 0.1 K/mm3 (0-0.2); Basophils % 0.4 % (0.1-2.0); Eosinophils # 0.2 K/mm3 (0.0-0.4); Eosinophils % 1.8 % (0.1-12.0); Hematocrit 29.1 % (42.0-52.0); Lymphocytes # 1.2 K/mm3 (0.7-4.5); Lymphocytes % 9.6 % (10-50); Mean Corpuscular HGB Conc 30.9 g/dL (31.8-35.4); Mean Corpuscular Hemoglobin 23.9 pg (27.0-31.2); Mean Corpuscular Volume 77.3 fl (80-94); Mean Platelet Volume 7.5 fl (7.4-10.4); Monocytes # 0.5 K/mm3 (0.1-1.0); Neutrophils # 10.7 K/mm3 (1.8-7.8); Neutrophils % 84.3 % (37.0-80.0); Platelet Count 225 K/mm3 (142-424); Red Blood Count 3.76 M/mm3 (4.60-6.20); Red Cell Distribution Width 16.4 % (11.5-17.5); White Blood Count 12.7 K/mm3 (4.8-10.8)
[2021-03-12 06:40] LABS: Chloride 97 mmol/L (98-107); Sodium 138 mmol/L (136-145)
[2021-03-12 06:43] LABS: Blood Urea Nitrogen 21 mg/dl (9-20); Calcium 8.5 mg/dl (8.4-10.2); Carbon Dioxide 36 mmol/L (22.0-30.0); Creatinine Clearance Estimated 97 mL/min (50-200); Estimated Glomerular Filt Rate 74 ml/min (>60); GFR (African American) 89 ML/MIN (>60); Glucose 173 mg/dl (74-100)
[2021-03-12 08:00] VITALS: BP 101/61; PULSE 69; RESP 18; TEMP 36.8; O2SAT 97
[2021-03-12 11:17] LABS: POC Glucose,Bedside 184 (70-110)
[2021-03-12 11:17] LABS: POC Glucose,Bedside 232 (70-110)
[2021-03-12 11:17] LABS: POC Glucose,Bedside 245 (70-110)
[2021-03-12 11:23] VITALS: BP 130/65; PULSE 70; RESP 20; TEMP 37.2; O2SAT 93
[2021-03-12 11:37] LABS: POC Glucose,Bedside 127 (70-110)
== END 2021-03-12 12:10 ==
LOC: 2ND 08:45
PROVIDERS: Emergency Medicine; Nurse Practitioner Family; Admitting Provider Orthopaedic Surgery; PCP Family Medicine; Visit Provider Orthopaedic Surgery
PROC: (CPT 27447; principal; 2021-03-09 07:30)
DX: M17.12 Unilateral primary osteoarthritis, left knee (principal); Z91.041 Radiographic dye allergy status; I11.0 Hypertensive heart disease with heart failure; I48.0 Paroxysmal atrial fibrillation; Z95.0 Presence of cardiac pacemaker; Z95.1 Presence of aortocoronary bypass graft; I25.118 Atherosclerotic heart disease of native coronary artery with other forms of angina pectoris; Z79.01 Long term (current) use of anticoagulants; Z79.899 Other long term (current) drug therapy; I50.23 Acute on chronic systolic (congestive) heart failure; E11.9 Type 2 diabetes mellitus without complications; I25.2 Old myocardial infarction; I42.9 Cardiomyopathy, unspecified
CPT/HCPCS: 27447; 36415; 73562; 80048; 81001; 82962; 85025; 86850; 93005; 96374; 97116; 97161; 97166; 97530; C1776; G0378; J2704; J3370; U0003

== ENCOUNTER → 2021-03-25 09:22 | Outpatient (CLI) | payer MEDICARE, SELFPAY ==
--- NOTE | 2021-03-25 09:41 | XR_ITS ---
PROCEDURE: XR KNEE LT 2V CLINICAL INDICATION: sp LT TKA Follow-up knee replacement COMPARISON: DX Left Knee from 06/20/2020 CR XR KNEE LT 4V from 07/04/2020 CR XR KNEE LT 4V from 02/27/2021 CR XR KNEE LT 3V from 03/09/2021 FINDINGS: Status post total knee arthroplasty on the left. There is good alignment of the prosthesis with no obvious orthopedic complication. Surgical clips are present within the soft tissues medially and there is generalized vascular calcification. Other findings:None. IMPRESSION: Good alignment status post total knee arthroplasty Dictated by: Mike Mora MD 03/25/2021 11:11 Mike Mora MD in [place] 03/25/2021 11:11
== END ==
PROVIDERS: PCP Family Medicine; Visit Provider Orthopaedic Surgery
DX: Z96.652 Presence of left artificial knee joint; M25.562 Pain in left knee
CPT/HCPCS: 73560

== ENCOUNTER → 2021-05-14 10:23 | Outpatient (CLI) | payer MEDICARE, SELFPAY ==
--- NOTE | 2021-05-14 10:28 | XR_ITS ---
PROCEDURE: XR KNEE LT 2V CLINICAL INDICATION: sp LT TKA COMPARISON: CR XR KNEE LT 4V from 07/04/2020 CR XR KNEE LT 4V from 02/27/2021 CR XR KNEE LT 3V from 03/09/2021 CR XR KNEE LT 2V from 03/25/2021 FINDINGS: Good alignment status post total knee arthroplasty. No evidence of orthopedic complication. There is diffuse vascular calcification and surgical clips medially from the previous vascular surgery. IMPRESSION: Good alignment status post total knee arthroplasty Dictated by: Mike Mora MD 05/14/2021 12:39 Mike Mora MD in [place] 05/14/2021 12:39
== END ==
PROVIDERS: PCP Family Medicine; Visit Provider Orthopaedic Surgery
DX: Z09 Encounter for follow-up examination after completed treatment for conditions other than malignant neoplasm (principal)
CPT/HCPCS: 73560